=== PATIENT | male | born 1965 | race Caucasian/White ===

== ENCOUNTER 2021-07-23 08:29 | Outpatient (REF) | payer OTHER, SELFPAY ==
[2021-07-23 08:39] LABS: MANUAL DIFF FLAG NO
[2021-07-23 09:05] LABS: Basophils Percent Auto 0.4 % (0-2); Eosinophils Percent Auto 0.1 % (0-4); Hematocrit 48.5 % (42.0-52.0); Hemoglobin 16.7 g/dl (14.0-18.0); Imm Gran Abs Auto 0.02 X10*3/uL (0.00-0.03); Imm Gran Pct Auto 0.2 % (0.0-0.4); Lymphocytes Absolute Auto 2.3 X10*3/uL (1.2-4.9); Lymphocytes Percent Auto 25.1 % (20-40); Mean Corpuscular HGB Conc 34.4 g/dl (31.0-36.0); Mean Corpuscular Hemoglobin 30.3 pg (27.0-33.0); Mean Corpuscular Volume 87.9 fL (80.0-98.0); Mean Platelet Volume 12.6 fL (9.4-12.4); Monocytes Absolute Auto 1.3 X10*3/uL (0.1-1.2); Monocytes Percent Auto 14.7 % (2-11); Neutrophils Absolute Auto 5.4 x10*3/uL (2.0-8.3); Neutrophils Percent Auto 59.5 % (45-73); Platelet Count 189 X10*3/uL (160-400); Red Blood Count 5.52 X10*6/uL (4.60-5.80); Red Cell Distribution Width 12.2 % (11.0-16.0); White Blood Count 9.1 X10*3/uL (4.8-10.8)
[2021-07-23 09:38] LABS: Alanine Aminotransferase 23 U/L (0-40); Albumin Level 4.1 g/dL (3.5-5.0); Alkaline Phosphatase 91 U/L (39-117); Anion Gap 12 (12-20); Aspartate Amino Transferase 14 U/L (5-37); Bilirubin Total 0.3 mg/dL (0.0-1.0); Blood Urea Nitrogen 16 mg/dL (9-16); Calcium 9.7 mg/dL (8.4-10.2); Carbon Dioxide 29 mmol/L (22-29); Chloride 100 mmol/L (96-108); Cholesterol 307 mg/dL; Estimated Glomerular Filt Rate 49; Glucose Fasting 323 mg/dL (60-99); HDL Cholesterol 42 mg/dL; LDL Cholesterol Calculated 239 mg/dl; Potassium 4.7 mmol/L (3.3-5.1); Sodium 136 mmol/L (135-145); Total Protein 7.4 g/dL (6.5-8.0); Triglycerides 131 mg/dL
[2021-07-23 09:58] LABS: Prostate Specific Antigen Scr 2.74 ng/mL (<0.05-4.0)
== END 2021-07-23 08:30 | disposition home or self-care (01) ==
LOC: HO.LAB 08:29
PROVIDERS: PCP Internal Medicine; Visit Provider Nurse Practitioner Family
DX: Z01.818 Encounter for other preprocedural examination (principal); Z12.5 Encounter for screening for malignant neoplasm of prostate; E11.9 Type 2 diabetes mellitus without complications; E78.5 Hyperlipidemia, unspecified; I10 Essential (primary) hypertension; E78.00 Pure hypercholesterolemia, unspecified
CPT/HCPCS: 36415; 80053; 80061; 84153; 85025

== ENCOUNTER 2021-10-31 10:14 | Outpatient (REF) | payer OTHER, SELFPAY ==
[2021-10-31 11:53] LABS: Estimated Average Glucose 318 mg/dL; Hemoglobin A1c % 12.7 %
[2021-10-31 12:01] LABS: Appearance Urine CLEAR; Color Urine YELLOW; Glucose Urine UA >=1000 MG/DL (NEG); Leukocyte Esterase Urine NEG (NEG); Nitrite Urine NEG (NEG); PH 6.5 (5.0-8.0); Specific Gravity - Urine 1.015 (1.005-1.025); Urine Blood NEG (NEG); Urine Ketones NEG (NEG); Urine Protein NEG (NEG-TRACE)
[2021-10-31 12:14] LABS: Creatinine Urine 95.91 mg/dL; Microalbum/Creatinine Ratio Ur 88.6 ug/mg cr
[2021-10-31 12:16] LABS: RBC Urine 0 /HPF (0); WBC Urine 0 /HPF (0-4)
[2021-10-31 12:27] LABS: PSA,Total (Free>4and<10) 2.56 ng/mL (0.00-4.00)
[2021-10-31 12:45] LABS: Alanine Aminotransferase 27 U/L (0-40); Albumin Level 4.4 g/dL (3.5-5.0); Alkaline Phosphatase 107 U/L (39-117); Anion Gap 10 (12-20); Aspartate Amino Transferase 17 U/L (5-37); Bilirubin Total 0.8 mg/dL (0.0-1.0); Blood Urea Nitrogen 12 mg/dL (9-16); Calcium 9.7 mg/dL (8.4-10.2); Carbon Dioxide 28 mmol/L (22-29); Chloride 102 mmol/L (96-108); Cholesterol 323 mg/dL; Estimated Glomerular Filt Rate > 60; HDL Cholesterol 44 mg/dL; LDL Cholesterol Calculated 239 mg/dl; Sodium 135 mmol/L (135-145); Total Protein 7.7 g/dL (6.5-8.0); Triglycerides 204 mg/dL
[2021-10-31 13:44] LABS: Glucose Fasting 351 mg/dL (60-99)
== END 2021-10-31 10:15 | disposition home or self-care (01) ==
LOC: HO.LAB 10:14
PROVIDERS: Nurse Practitioner Family; PCP Internal Medicine; Visit Provider Internal Medicine
DX: E11.9 Type 2 diabetes mellitus without complications (principal); E78.5 Hyperlipidemia, unspecified; R94.4 Abnormal results of kidney function studies; I10 Essential (primary) hypertension; Z12.5 Encounter for screening for malignant neoplasm of prostate
CPT/HCPCS: 36415; 80053; 80061; 81001; 81003; 82043; 83036; 84153

== ENCOUNTER 2022-03-27 13:30 | Outpatient (REF) | payer OTHER, SELFPAY ==
--- NOTE | ~2022-03-27 | US_ITS ---
EXAMINATION: US RETROPERITONEAL LIMITED (RENAL ONLY) CLINICAL INFORMATION: CKD stage III. COMPARISON: None TECHNIQUE: Real-time imaging of the kidneys. FINDINGS: RIGHT KIDNEY: 11.4 x 5.5 x 4.6 cm (SAG x AP x TRV). The kidney is normal in size, contour, and echogenicity. Renal cortical thickness is normal. No calculi or focal parenchymal lesions. No hydronephrosis. LEFT KIDNEY: 11.9 x 5.6 x 5.0 cm (SAG x AP x TRV). The kidney is normal in size, contour, and echogenicity. Renal cortical thickness is normal. No calculi or focal parenchymal lesions. No hydronephrosis. US/US renal BI IMPRESSION: Normal renal ultrasound.
== END 2022-03-27 13:31 | disposition home or self-care (01) ==
LOC: HO.US 13:30
PROVIDERS: Visit Provider Internal Medicine Hypertension Specialist
DX: N18.2 Chronic kidney disease, stage 2 (mild) (principal)
CPT/HCPCS: 76775

== ENCOUNTER → 2022-05-29 08:33 | Outpatient (BNVA) | payer OTHER, SELFPAY | PROVIDERS: PCP Internal Medicine; Referring Provider Nurse Practitioner Family; Visit Provider Internal Medicine | DX: Z01.810 Encounter for preprocedural cardiovascular examination (principal); R07.2 Precordial pain; E11.9 Type 2 diabetes mellitus without complications; E78.2 Mixed hyperlipidemia | CPT/HCPCS: 93005 ==

== ENCOUNTER 2022-06-19 08:55 | Outpatient (REF) | payer OTHER, SELFPAY ==
[2022-06-19 11:04] LABS: Alanine Aminotransferase 18 U/L (0-40); Alkaline Phosphatase 89 U/L (39-117); Anion Gap 11 (12-20); Aspartate Amino Transferase 13 U/L (5-37); Bilirubin Total 0.4 mg/dL (0.0-1.0); Blood Urea Nitrogen 12 mg/dL (9-16); Calcium 9.4 mg/dL (8.4-10.2); Carbon Dioxide 29 mmol/L (22-29); Chloride 100 mmol/L (96-108); Cholesterol 176 mg/dL; Estimated Glomerular Filt Rate > 60; Glucose Fasting 328 mg/dL (60-99); HDL Cholesterol 42 mg/dL; LDL Cholesterol Calculated 109 mg/dl; Potassium 4.8 mmol/L (3.3-5.1); Sodium 135 mmol/L (135-145); Total Protein 6.7 g/dL (6.5-8.0); Triglycerides 129 mg/dL; Vitamin D 25-OH Total 36.4 ng/mL (>30)
[2022-06-19 11:08] LABS: Microalbum/Creatinine Ratio Ur 71.3 ug/mg cr
== END 2022-06-19 08:56 | disposition home or self-care (01) ==
LOC: HO.LAB 08:55
PROVIDERS: PCP Internal Medicine; Visit Provider Internal Medicine
DX: E55.9 Vitamin D deficiency, unspecified (principal); E11.9 Type 2 diabetes mellitus without complications; E78.5 Hyperlipidemia, unspecified
CPT/HCPCS: 36415; 80053; 80061; 82043; 82306

== ENCOUNTER → 2022-06-26 09:43 | Outpatient (REF) | payer OTHER, SELFPAY ==
--- NOTE | 2022-06-26 09:49 | CA_ITS ---
Transthoracic Echocardiogram Patient (Last, First, Middle): Dawood Ag, Gender: Male Date of : 1965 Age: 57 Procedure Date: 06/26/2022 Procedure Type: Transthoracic Echocardiogram Location: OP Height: 172.72 cm Weight: 75.3 kg BSA: 1.89 m2 Heart Rate: 69 bpm BP: 136 / 62 mmHg Manufacturing Engineer Automotive: SB Referring MD: Arden Smith MD Symptoms: I25.10 - Atherosclerotic heart disease of [place] coronary artery without... Study Quality: Adequate ECG Rhythm: Sinus Conclusions: - The left ventricular systolic function is normal. The calculated ejection fraction is 67% by biplane method. - The apical inferior segment is hypokinetic. - No obvious valvular pathology seen on this study. Findings Left Ventricle Normal left ventricular cavity size. There is normal left ventricular wall thickness. The left ventricular systolic function is normal. The calculated ejection fraction is 67% by biplane method. Diastolic function is normal for age. There is mild septal and mild basal asymmetric hypertrophy. Wall Motion Rest Echo Findings The apical inferior segment is hypokinetic. Right Ventricle Normal right ventricular cavity size. There is mildly decreased right ventricular systolic function. Atria Both atria are normal in size. Aortic Valve There is a normal trileaflet aortic valve. There is no aortic valve stenosis. There is no aortic valve regurgitation. Mitral Valve The mitral valve appears normal. There is no mitral valve regurgitation. There is no mitral valve stenosis. Pulmonic Valve The pulmonic valve is likely normal. Tricuspid Valve Normal tricuspid valve structure. There is trace tricuspid valve regurgitation. There is no evidence of pulmonary hypertension. Great Vessels The asc aorta is normal in size. Venous The inferior vena cava is normal in size and collapses greater than 50% with inspiration. Pericardium/Pleural There is no evidence of pericardial effusion. Prior Study Comparison No prior study available for comparison. Recommendations, Care & Conclusions No obvious valvular pathology seen on this study. Measurements 2D Linear Measurements IVSd: 0.69 0.6-0.9/0.6-1.0 cm LVIDd: 4.47 3.9-5.3/4.2-5.9 cm LVIDd Index: 2.37 2.4-3.2/2.2-3.1 cm/m2 LVIDs: 3.05 2.0-3.6 cm LVPWd: 0.80 0.7-1.1 cm LA Diam: 3.10 2.7-3.8/3.0-4.0 cm LAIDs Index: 1.64 1.5-2.3 cm/m2 LV Mass: 126.18 67-162/88-224 g LV Mass Index: 66.76 43-95/49-115 g/m2 LVOT Diam: 2.30 3.0+(-)1.3 cm 2D Systolic Function EF 4C: 65.50 >55% EF 2C: 68.90 >55% EF BiP: 67.20 >55% Mitral Valve MV Pk E: 0.79 MV PK A: 0.94 MV Decel Time: 185.00 E/A: 0.80 E'Lateral: 8.49 E'Medial: 5.77 E/E' Med: 13.70 E/E' Lat: 9.30 PHT: 54.00 MVA PHT: 4.07 Decel [place]: 4.27 Aortic Valve AoV Pk [place]ado: 1.14 AoV Pk Grad: 5.00 JANIS: 3.56 LVOT LVOT Pk [place]donado: 0.98 LVOT Mn [place]donado: 0.69 LVOT VTI: 0.23 LVOT Pk Grad: 4.00 LVOT Mn Grad: 2.00 LVOT Diam: 2.30 LVOT Area: 4.15 Diastolic Function MV Pk E: 0.79 MV Pk A: 0.94 E/A: 0.80 E'Medial: 5.77 E/E' Med: 13.70 E' Laterial: 8.49 E/E' Lat: 9.30 Right Ventricle TAPSE (mm): 13.90 TVS' Maldonado: 10.70 Tricuspid Valve RA Press: 3.00 Great Vessels Aorta Sinus of Valsalva: 3.20 2.0-3.5 cm Ao Asc: 3.30 2.1-3.4 cm Pulmonary Valve PV Pk Maldonado: 1.08 Peak PV Grad: 5.00 Updated in Other Vendor System with Status of Final Arden Smith MD electronically signed on 06/28/2022 10:46:14 AM with status of Final
== END ==
LOC: HO.CARD 09:43
PROVIDERS: PCP Internal Medicine; Visit Provider Internal Medicine
DX: R07.2 Precordial pain (principal); I25.10 Atherosclerotic heart disease of native coronary artery without angina pectoris
CPT/HCPCS: 93306

== ENCOUNTER → 2022-07-17 14:14 | Outpatient (BNVA) | payer OTHER, SELFPAY | PROVIDERS: PCP Internal Medicine; Visit Provider Internal Medicine Endocrinology, Diabetes & Metabolism | DX: E11.9 Type 2 diabetes mellitus without complications (principal) | CPT/HCPCS: 82947 ==

== ENCOUNTER → 2022-07-31 11:01 | Outpatient (REF) | payer OTHER, SELFPAY ==
--- NOTE | 2022-07-31 11:04 | CA_ITS ---
Acquisition Time: 2022-07-31 11:56:33 Total Exercise Time: 00:05:24 Test Indications: R07.2 Precordial pain Medications: See H Protocol: OVI Max HR: 157 BPM 96% of Pred: 162 BPM Max BP: 160/090 mmHG Max Work Load: 7.2 METS Exercise stress test with exercise 5 min 24 sec of Ovi protocol, 4.6 METS with runs of ventricular tachycardia and need to stop exercise, without symptoms, with normotensive response to exercise, without ischemic changes on EKG. Echo images obtained by tech at rest and immediately post peak exercise. Definity contrast used. Ventricular ectopy resolved in recovery. Pt recovered for 18 minutes and felt well. EKG tracings reviewed with Dr Philip. Will start on aspirin, Metoprolol. He is already on statin. Presumed need for cardiac cath reviewed with pt including risk. He is agreeable to proceed. Will get precath labs today. Instructed on light activity only. ED care if needed for symptoms. Referred By: Arden Smith Overread By: ZAINAB WHITE
[2022-07-31 12:52] LABS: MANUAL DIFF FLAG NO
[2022-07-31 13:42] LABS: Basophils Percent Auto 0.4 % (0-2); Eosinophils Absolute Auto 0.1 X10*3/uL (0.0-0.4); Eosinophils Percent Auto 0.8 % (0-4); Hematocrit 45.3 % (42.0-52.0); Hemoglobin 15.2 g/dl (14.0-18.0); Imm Gran Abs Auto 0.01 X10*3/uL (0.00-0.03); Imm Gran Pct Auto 0.1 % (0.0-0.4); Lymphocytes Absolute Auto 1.7 X10*3/uL (1.2-4.9); Lymphocytes Percent Auto 23.4 % (20-40); Mean Corpuscular HGB Conc 33.6 g/dl (31.0-36.0); Mean Corpuscular Hemoglobin 29.5 pg (27.0-33.0); Mean Corpuscular Volume 87.8 fL (80.0-98.0); Mean Platelet Volume 12.5 fL (9.4-12.4); Monocytes Absolute Auto 0.5 X10*3/uL (0.1-1.2); Monocytes Percent Auto 7.6 % (2-11); Neutrophils Absolute Auto 4.8 x10*3/uL (2.0-8.3); Neutrophils Percent Auto 67.7 % (45-73); Platelet Count 204 X10*3/uL (160-400); Red Blood Count 5.16 X10*6/uL (4.60-5.80); White Blood Count 7.1 X10*3/uL (4.8-10.8)
[2022-07-31 13:47] LABS: INTERNATIONAL NORM RATIO 1.1 (0.9-1.1); Prothrombin Time 12.4 SEC (10.0-13.1)
[2022-07-31 14:49] LABS: Anion Gap 13 (12-20); Blood Urea Nitrogen 15 mg/dL (9-16); Calcium 9.8 mg/dL (8.4-10.2); Carbon Dioxide 26 mmol/L (22-29); Chloride 104 mmol/L (96-108); Estimated Glomerular Filt Rate > 60; Glucose Random 183 mg/dL (60-115); Potassium 4.9 mmol/L (3.3-5.1); Sodium 138 mmol/L (135-145)
== END ==
LOC: HO.CARD 11:01
PROVIDERS: Nurse Practitioner Family; PCP Internal Medicine; Visit Provider Internal Medicine
DX: R07.2 Precordial pain (principal); R94.39 Abnormal result of other cardiovascular function study
CPT/HCPCS: 36415; 80048; 85025; 85610; 93350; Q9957

== ENCOUNTER 2022-09-04 10:51 | Outpatient (REF) | payer OTHER, SELFPAY ==
[2022-09-04 12:01] LABS: Basophils Absolute Auto 0.1 X10*3/uL (0.0-0.2); Basophils Percent Auto 0.8 % (0-2); Eosinophils Absolute Auto 0.1 X10*3/uL (0.0-0.4); Eosinophils Percent Auto 1.9 % (0-4); Hematocrit 44.7 % (42.0-52.0); Hemoglobin 14.9 g/dl (14.0-18.0); Imm Gran Abs Auto 0.01 X10*3/uL (0.00-0.03); Imm Gran Pct Auto 0.2 % (0.0-0.4); Lymphocytes Absolute Auto 1.9 X10*3/uL (1.2-4.9); Lymphocytes Percent Auto 32.8 % (20-40); MANUAL DIFF FLAG SCAN; Mean Corpuscular HGB Conc 33.3 g/dl (31.0-36.0); Mean Corpuscular Volume 87.1 fL (80.0-98.0); Mean Platelet Volume 12.9 fL (9.4-12.4); Monocytes Absolute Auto 0.5 X10*3/uL (0.1-1.2); Monocytes Percent Auto 7.8 % (2-11); Neutrophils Absolute Auto 3.4 x10*3/uL (2.0-8.3); Neutrophils Percent Auto 56.5 % (45-73); PLT CLUMP 1; Red Blood Count 5.13 X10*6/uL (4.60-5.80); Red Cell Distribution Width 12.9 % (11.0-16.0); SCAN SMEAR FLAG 1
[2022-09-04 12:02] LABS: INTERNATIONAL NORM RATIO 1.1 (0.9-1.1); Prothrombin Time 13.2 SEC (10.0-13.1); White Blood Count 5.9 X10*3/uL (4.8-10.8)
[2022-09-04 12:41] LABS: Platelet Count 190 X10*3/uL (160-400); SLIDE REVIEW VERIFIED
[2022-09-04 12:44] LABS: Anion Gap 14 (12-20); Blood Urea Nitrogen 23 mg/dL (9-16); Calcium 9.4 mg/dL (8.4-10.2); Carbon Dioxide 25 mmol/L (22-29); Chloride 107 mmol/L (96-108); Estimated Glomerular Filt Rate > 60; Glucose Random 185 mg/dL (60-115); Potassium 4.7 mmol/L (3.3-5.1); Sodium 141 mmol/L (135-145)
== END 2022-09-04 10:52 | disposition home or self-care (01) ==
LOC: HO.LAB 10:51
PROVIDERS: PCP Internal Medicine; Visit Provider Internal Medicine Cardiovascular Disease
DX: I47.20 Ventricular tachycardia, unspecified (principal); R94.39 Abnormal result of other cardiovascular function study
CPT/HCPCS: 36415; 80048; 85025; 85610

== ENCOUNTER → 2022-09-23 08:50 | Outpatient (BNVA) | payer OTHER, SELFPAY | PROVIDERS: PCP Internal Medicine; Referring Provider Internal Medicine; Visit Provider Internal Medicine | DX: Z13.89 Encounter for screening for other disorder (principal) ==

== ENCOUNTER → 2022-10-16 12:54 | Outpatient (BNVA) | payer OTHER, SELFPAY | PROVIDERS: PCP Internal Medicine; Visit Provider Internal Medicine Endocrinology, Diabetes & Metabolism | DX: E11.9 Type 2 diabetes mellitus without complications (principal) | CPT/HCPCS: 82947; 83036 ==

== ENCOUNTER → 2022-11-06 13:03 | Outpatient (BNVA) | payer OTHER, SELFPAY | PROVIDERS: PCP Internal Medicine; Visit Provider Dietitian, Registered | DX: E11.9 Type 2 diabetes mellitus without complications (principal); Z71.3 Dietary counseling and surveillance | CPT/HCPCS: 97802 ==

== ENCOUNTER 2022-11-11 09:47 | Outpatient (REF) | payer OTHER, SELFPAY ==
--- NOTE | ~2022-11-11 | US_ITS ---
EXAMINATION: US EXTRACRANIAL CAROTID DUPLEX, BILATERAL CLINICAL INFORMATION: Carotid bruit. COMPARISON: None available. TECHNIQUE: Real-time ultrasound and Doppler techniques (integrating B-mode 2-D vascular images, Doppler spectral analysis and color-flow Doppler imaging) were utilized to interrogate the extracranial carotid arteries, the vertebral arteries and proximal subclavian arteries bilaterally. The degree of stenosis is determined by criteria similar to NASCET. FINDINGS: Right Side: 1. There is mild atherosclerotic plaque seen in the bifurcation/proximal ICA region. 2. The common carotid artery PSV proximally is 99 cm/s and distally 72 cm/s. 3. The proximal internal carotid artery velocities are 87 cm/s systolic and 29 cm/s diastolic. 4. The proximal external carotid artery PSV is 97 cm/s. 5. The vertebral artery shows antegrade flow. 6. The subclavian artery waveforms are normal. Left Side: 1. There is mild atherosclerotic plaque seen in the bifurcation/proximal ICA region. 2. The common carotid artery PSV proximally is 89 cm/s and distally 81 cm/s. 3. The proximal internal carotid artery velocities are 72 cm/s systolic and 28 cm/s diastolic. 4. The proximal external carotid artery PSV is 102 cm/s. 5. The vertebral artery shows antegrade flow. 6. The subclavian artery waveforms are normal. US/US carotid duplex BI IMPRESSION: 1. RIGHT: Minimal, non-hemodynamically significant stenosis of the proximal right internal carotid artery corresponding to a 0-49% stenosis by velocity criteria. 2. LEFT: Minimal, non-hemodynamically significant stenosis of the proximal left internal carotid artery corresponding to a 0-49% stenosis by velocity criteria.
--- NOTE | ~2022-11-11 | US_ITS ---
EXAMINATION: US LOWER EXTREMITY VENOUS (REFLUX EXAM), BILATERAL CLINICAL INDICATION: Chronic venous insufficiency with lower extremity varicose vein, pain and swelling COMPARISON: None. TECHNIQUE: Color flow triplex imaging and compression Doppler was performed to evaluate both the deep and the superficial systems bilaterally. To evaluate the superficial system, the examination was performed in the upright position. Color-flow Doppler ultrasound and compression ultrasound were utilized. In addition, maneuvers were utilized to demonstrate reflux. FINDINGS: 1. DEEP VENOUS ULTRASOUND OF THE RIGHT LOWER EXTREMITY: Common Femoral Vein: Compressible, normal respiratory variation and augmented flow. Femoral Vein: Compressible, normal color flow and augmentation. Popliteal Vein: Compressible, normal augmentation. Deep Reflux: There is no evidence of reflux in the deep system in either the common femoral vein or the popliteal vein. There is no evidence of a Lovett's cyst. 2. SUPERFICIAL ULTRASOUND WITH DOPPLER OF RIGHT LOWER EXTREMITY: GREAT SAPHENOUS VEIN: Saphenofemoral Junction: 0.6 cm; Reflux: 0 ms Proximal Thigh: 0.3 cm; Reflux: 0 ms Mid Thigh: 0.2 cm; Reflux: 0 ms Above Knee: 0.3 cm; Reflux: 0 ms At Knee: 0.3 cm; Reflux: 0 ms Below Knee: 0.3 cm; Reflux: 0 ms Mid Calf: 0.2 cm; Reflux: 0 ms Ankle: 0.2 cm; Reflux: 2612 ms DUPLICATED MEDIAL GREAT SAPHENOUS VEIN: Diameter: None Imaged Reflux: NA DUPLICATED LATERAL GREAT SAPHENOUS VEIN: Diameter: None Imaged Reflux: NA SMALL SAPHENOUS VEIN: Proximal: 0.2 cm; Reflux: 0 ms Distal: 0.2 cm; Reflux: 0 ms VEIN OF GIACOMINI: None Imaged. PERFORATORS: Location: Proximal calf Size: 0.3 cm Reflux: 2392 ms VARICOSITIES: Location: Proximal calf off the great saphenous vein and proximal calf off the sterile proc tech vein Size: 0.3 cm Reflux: Ranging from 2360 ms to 2444 ms 3. DEEP VENOUS ULTRASOUND OF THE LEFT LOWER EXTREMITY: Common Femoral Vein: Compressible, normal respiratory variation and augmented flow. Femoral Vein: Compressible, normal color flow and augmentation. Popliteal Vein: Compressible, normal augmentation. Deep Reflux: There is no evidence of reflux in the deep system in either the common femoral vein or the popliteal vein. There is no evidence of a Lovett's cyst. 4. SUPERFICIAL ULTRASOUND WITH DOPPLER OF LEFT LOWER EXTREMITY: GREAT SAPHENOUS VEIN: Saphenofemoral Junction: 0.6 cm; Reflux: 0 ms Proximal Thigh: 0.2 cm; Reflux: 0 ms Mid Thigh: 0.2 cm; Reflux: 0 ms Above Knee: 0.2 cm; Reflux: 0 ms At Knee: 0.3 cm; Reflux: 0 ms Below Knee: 0.3 cm; Reflux: 0 ms Mid Calf: 0.2 cm; Reflux: 0 ms Ankle: 0.2 cm; Reflux: 0 ms DUPLICATED MEDIAL GREAT SAPHENOUS VEIN: Diameter: None Imaged Reflux: NA DUPLICATED LATERAL GREAT SAPHENOUS VEIN: Diameter: None Imaged Reflux: NA SMALL SAPHENOUS VEIN: Proximal: 0.4 cm; Reflux: 0 ms Distal: 0.1 cm; Reflux: 0 ms VEIN OF GIACOMINI: None Imaged. PERFORATORS: Location: None significant Size: NA Reflux: NA VARICOSITIES: Location: None Imaged Size: NA Reflux: NA US/US venous duplex LE BI IMPRESSION: Right: Dilated varicose veins in the proximal calf arising from the great saphenous vein and the sterile proc tech vein with reflux as described above. There is focal reflux in the great saphenous vein in the distal calf with otherwise normal flow seen more proximally. Left: No significant venous insufficiency or reflux in the left great saphenous vein or small saphenous vein
== END 2022-11-11 09:48 | disposition home or self-care (01) ==
LOC: HO.US 09:47
PROVIDERS: PCP Internal Medicine; Visit Provider Thoracic Surgery (Cardiothoracic Vascular Surgery)
DX: R09.89 Other specified symptoms and signs involving the circulatory and respiratory systems (principal); I87.2 Venous insufficiency (chronic) (peripheral)
CPT/HCPCS: 93880; 93970

== ENCOUNTER → 2023-01-02 14:21 | Outpatient (BNVA) | payer MEDICAID, SELFPAY | PROVIDERS: PCP Internal Medicine; Referring Provider Internal Medicine; Visit Provider Internal Medicine | DX: I25.10 Atherosclerotic heart disease of native coronary artery without angina pectoris (principal); Z95.1 Presence of aortocoronary bypass graft | CPT/HCPCS: 93005 ==

== ENCOUNTER → 2023-01-22 10:38 | Outpatient (REF) | payer OTHER, SELFPAY ==
--- NOTE | 2023-01-22 10:40 | CA_ITS ---
Transthoracic Echocardiogram Patient (Last, First, Middle): Dawood Ag, Gender: Male Date of : 1965 Age: 57 Procedure Date: 01/22/2023 Procedure Type: Transthoracic Echocardiogram Location: OP Height: 172.72 cm Weight: 69.4 kg BSA: 1.82 m2 Heart Rate: bpm BP: 118 / 60 mmHg Scouring Machine Operator: Referring MD: Arden Smith MD Varnisher Plasticoater: Tavon Philip MD Symptoms: I25.10 - Atherosclerotic heart disease of [place] coronary artery without... Study Quality: Good ECG Rhythm: Sinus Conclusions: - 1. Normal LV systolic function with moderate LVH with LVEF of 60 65% with grade 1 diastolic dysfunction 2. Normal cardiac valvular Doppler 3. Normal RV systolic pressure 4. No gross pericardial effusion Findings Left Ventricle Normal left ventricular size and systolic function. There is moderately increased left ventricular wall thickness. The visually estimated ejection fraction is between 60-65%. There is paradoxical septal motion consistent with post-operative status. Spectral Doppler is indicative of an impaired relaxation filling pattern. E/E prime ratio is <8, consistent with normal filling pressures. Evidence suggests grade I (mild) diastolic dysfunction. Wall Motion Rest Echo Findings The basal inferior segment is akinetic. All other scored wall segments showed normal motion. Right Ventricle Normal right ventricular cavity size. There is borderline right ventricular systolic function. Atria The left atrium is normal in size. Interatrial shunt cannot be excluded. The right atrium is normal in size. Aortic Valve Normal aortic valve structure and function. There is no aortic valve stenosis. There is no aortic valve regurgitation. Mitral Valve Likely normal mitral valve structure and function. There is trace mitral valve regurgitation. There is no mitral valve stenosis. Pulmonic Valve The pulmonic valve is likely normal. There is trace pulmonic valve regurgitation. Tricuspid Valve Likely normal tricuspid valve structure and function. There is trace tricuspid valve regurgitation. The right ventricular systolic pressure is normal. There is no evidence of pulmonary hypertension. Great Vessels All visible segments of the aorta are normal in size. The pulmonary artery was not well visualized. Venous The inferior vena cava is mildly dilated. Pericardium/Pleural There is no evidence of pericardial effusion. Measurements 2D Linear Measurements IVSd: 1.39 0.6-0.9/0.6-1.0 cm LVIDd: 3.29 3.9-5.3/4.2-5.9 cm LVIDd Index: 1.81 2.4-3.2/2.2-3.1 cm/m2 LVIDs: 2.29 2.0-3.6 cm LVPWd: 1.41 0.7-1.1 cm Ao Root: 3.00 2.1-3.5 cm LA Diam: 2.70 2.7-3.8/3.0-4.0 cm LAIDs Index: 1.48 1.5-2.3 cm/m2 LV Mass: 197.87 67-162/88-224 g LV Mass Index: 108.72 43-95/49-115 g/m2 LVOT Diam: 2.20 3.0+(-)1.3 cm Mitral Valve MV Pk E: 0.69 MV PK A: 0.75 MV Decel Time: 175.00 E/A: 0.90 E'Lateral: 11.30 E'Medial: 5.77 E/E' Med: 11.90 E/E' Lat: 6.10 PHT: 51.00 MVA PHT: 4.31 Decel [place]: 3.92 Aortic Valve AoV Pk Maldonado: 1.13 AoV Mn Maldonado: 0.78 AoV VTI: 0.26 AoV Pk Grad: 5.00 Aov Mn Grad: 3.00 JANIS Cont.VTI: 3.36 LVOT LVOT Pk Maldonado: 1.05 LVOT Mn Maldonado: 0.72 LVOT VTI: 0.23 LVOT Pk Grad: 4.00 LVOT Mn Grad: 2.00 LVOT Diam: 2.20 LVOT Area: 3.80 Diastolic Function MV Pk E: 0.69 MV Pk A: 0.75 E/A: 0.90 E'Medial: 5.77 E/E' Med: 11.90 E' Laterial: 11.30 E/E' Lat: 6.10 Right Ventricle TAPSE (mm): 17.00 TVS' Maldonado: 8.00 Tricuspid Valve TR Pk Maldonado: 2.08 TR Pk Grad: 17.00 RA Press: 3.00 RVSP: 20.00 Great Vessels Aorta Ao Root-2D: 3.00 2.0-3.7 cm Ao Asc: 3.20 2.1-3.4 cm Pulmonary Valve PV Pk Maldonado: 1.21 Peak PV Grad: 6.00 Updated in Other Vendor System with Status of Final Tavon Philip MD electronically signed on 01/23/2023 4:52:03 PM with status of Final
== END ==
LOC: HO.CARD 10:38
PROVIDERS: PCP Internal Medicine; Visit Provider Internal Medicine
DX: I25.10 Atherosclerotic heart disease of native coronary artery without angina pectoris (principal); Z95.1 Presence of aortocoronary bypass graft
CPT/HCPCS: 93306

== ENCOUNTER → 2023-01-22 10:40 | Outpatient (BNV) | payer OTHER, SELFPAY | PROVIDERS: PCP Internal Medicine; Visit Provider Internal Medicine Cardiovascular Disease | DX: I25.10 Atherosclerotic heart disease of native coronary artery without angina pectoris (principal) | CPT/HCPCS: 93306 ==

== ENCOUNTER 2023-03-06 07:57 | Outpatient (AMB) | payer OTHER, SELFPAY ==
[2023-03-06 08:00] VITALS: BP 144/80; BMI 23.7
--- NOTE | 2023-03-06 08:00 | MHC.PC.OV ---
Vital Signs 03/06/23 08:00 03/06/23 09:12 Height 5 ft 8 in Weight 156 lb BMI 23.7 BP 144/80 H 138/80 Blood Pressure Location Lt brachial Lt brachial Position Sitting Sitting Intake Visit Reasons: Cardiology Referral-Heart Surgery Intake Note: Patient here for a follow up Online Merchant Required: No Accompanied by: Self / Same As Patient Allergies nickel [NICKEL] Adverse Reaction (Intermediate, Verified 03/06/23 08:15) RASH Medication List - Last Reconciled 03/06/23 by Gabriela Ball MD ascorbate calcium (vitamin C) 500 mg PO DAILY aspirin 81 mg PO DAILY atorvastatin 80 mg PO BEDTIME blood sugar diagnostic (FreeStyle Lite Strips) Use 1 test strip twice a day blood-glucose meter (FreeStyle Lite Meter kit) As directed lancets (FreeStyle Lancets) Use 1 lancet twice a day metformin 500 mg PO BID 90 days pioglitazone 45 mg PO DAILY Tobacco use date assessed: 11/06/22 Dental Screening Dental Screen Date: 03/06/23 Did you have a dental visit in the last 12 months?: No Did you have a dental problem in the last 6 months where you did not have access to dental care?: No Was dental information given to patient?: Patient has dentist HPI HPI Comments History of Present Illness Details This is a 57-year-old male with diabetes mellitus type 2, hyperlipidemia, status post coronary artery bypass graft in November 2022 and insomnia that comes today for follow-up on his conditions. A1c within goal. Lipid panel will be order. His LDL should be less than 70. Has cardiology follow-up next month for his coronary artery disease. Recovering well. No chest pain or shortness of breath. Complains of some mild cognitive impairment. Insomnia has been stable with sleep hygiene. [facility] Medical History Atherosclerotic cardiovascular disease Colon polyps Diabetes HTN (hypertension) Hyperlipidemia Microalbuminuria Minimal depression Mixed hyperlipidemia Physical exam Screen for colon cancer Surgical History H/O colonoscopy H/O shoulder surgery History of cataract surgery Hx of CABG Hx of eye surgery Family History Father Diabetes HTN (hypertension) Hyperlipidemia Mother Diabetes HTN (hypertension) Hyperlipidemia Social History Household Members: Spouse Housing: Apartment Alcohol intake: never Patient Tobacco Use Status: Former Tobacco user e-Cigarette/Vaping Use: Never Used Second Hand Smoke Exposure: No service: No Current occupational status: unemployed Cognitive needs: No Hearing needs: No Vision needs: Yes Questionnaire Thrive Questionnaire Date Thrive assessed: 11/06/22 INESSA-7 AMB Questionnaire INESSA-7 Date INESSA - 7 assessed: 11/06/22 Source: Developed by Drs. Julio Fernández, Katherine Celis, Adrian Mcneill and colleagues, with an educational augustine from [employer]. Review of Systems Const All systems reviewed & are unremarkable except as noted in HPI and below Eyes Reports no additional complaints, Denies change in vision and Denies other visual disturbances Card Denies chest pain at rest, Denies chest pain with activity, Denies edema, Denies irregular heart rhythm, Denies claudication, Denies dyspnea, Denies dyspnea on exertion, Denies orthopnea, Denies paroxysmal nocturnal dyspnea and Denies slow heart rate Resp Denies cough, Denies dyspnea and Denies dyspnea on exertion GI Denies abdominal pain, Denies change in bowel habits, Denies excessive flatus, Denies nausea and Denies vomiting Denies urinary hesitancy, Denies urinary incontinence and Denies urinary urgency Musc Denies abnormal gait, Denies atrophy, Denies deformity and Denies limited range of motion Skin/Breast Denies bleeding lesions, Denies changing lesions and Denies rash Neuro Denies abnormal gait and Denies lack of coordination Physical exam (Primary Care) Vital Signs: Last Vital Signs BP 144/80 H 03/06/23 08:00 BMI result Body Mass Index 23.7 Tobacco/Smoking Status: Tobacco use Status Tobacco use date assessed 11/06/22 03/06/23 08:05 Patient Tobacco Use Status Former Tobacco user 03/06/23 08:05 Tobacco use type 11/06/22 09:21 e-Cigarette/Vaping Use Never Used 03/06/23 08:05 Thrive Assessment: Date of Thrive Assessment Date Thrive assessed 11/06/22 03/06/23 08:05 Eyes General: appearance normal, both eyes and all related structures Eyelids: Yes eyelids normal Conjunctivae: conjunctivae normal Neck Neck: Yes normal visual inspection and Yes supple Resp Effort & Inspection: normal respiratory effort Auscultation: clear to auscultation bilaterally Cardio Jugular venous distension: no JVD Rate: regular rate Rhythm: regular rhythm Heart sounds: S1 normal heart sound present and S2 normal heart sound present Extrem General: Yes full ROM Results AMB Hemoglobin A1c AMB Hemoglobin A1c 6.6 % Last Edit by RUBY Saldivar on 03/06/23 08:19 Results Reviewed Results Reviewed: Laboratory Last Values Hgb A1c (Clinic) 6.6 % (4.0-6.0) H 03/06/23 08:06 Assessment and Plan Assessment & Plan (1) Diabetes: Code(s): E11.9 - Type 2 diabetes mellitus without complications Plan: Continue metformin and Actos. A1c goal is equal or less than 7%. (2) Hyperlipidemia: Code(s): E78.5 - Hyperlipidemia, unspecified Plan: Continue statins. LDL goal should be less than 70. (3) Status post aorto-coronary artery bypass graft: Code(s): Z95.1 - Presence of aortocoronary bypass graft Plan: Continue aspirin for secondary prophylaxis. Follow-up with Cardiology. (4) Insomnia: Code(s): G47.00 - Insomnia, unspecified Plan: Continue sleep hygiene practice. Orders: Orders Vitamin B12 and Folate 4 Months E53.8 - Deficiency of other specified B group vitamins Comprehensive [place]. Panel Fast 4 Months E11.9 - Type 2 diabetes mellitus without complications IRON PROFILE 4 Months D64.9 - Anemia, unspecified Lipid Panel 4 Months E78.5 - Hyperlipidemia, unspecified Microalbumin, Random (w Creat) 4 Months E11.9 - Type 2 diabetes mellitus without complications Complete Blood Count Auto Diff 4 Months D64.9 - Anemia, unspecified AMB Hemoglobin A1c Today E11.9 - Type 2 diabetes mellitus without complications Coding Level of Care Code Est Pt Level 4 (41154) Diagnoses Diabetes E11.9 Hyperlipidemia E78.5 Status post aorto-coronary artery bypass graft Z95.1 Insomnia G47.00 Time Spent (min) 22
[2023-03-06 09:12] VITALS: BP 138/80
== END 2023-03-06 08:25 | disposition home or self-care (01) ==
PROVIDERS: PCP Internal Medicine; Visit Provider Internal Medicine
DX: E11.9 Type 2 diabetes mellitus without complications (principal); E78.5 Hyperlipidemia, unspecified; Z95.1 Presence of aortocoronary bypass graft; G47.00 Insomnia, unspecified
CPT/HCPCS: 83036; 99214

== ENCOUNTER 2023-04-02 13:30 | Outpatient (AMB) | payer OTHER, SELFPAY ==
[2023-04-02 13:32] VITALS: BP 112/62; PULSE 85; BMI 23.9
--- NOTE | 2023-04-02 13:32 | MHC.OFFVIS ---
Intake Vital Signs 04/02/23 13:32 Height 5 ft 8 in Weight 156 lb 15.506 oz BMI 23.9 BP 112/62 Blood Pressure Location Lt brachial Position Sitting Pulse 85 Intake Visit Reasons: 3 month follow up Intake Note: 3 month follow up Professor Of Languages Required: No Accompanied by: Self / Same As Patient Allergies nickel [NICKEL] Adverse Reaction (Intermediate, Verified 04/02/23 13:34) RASH Medication List - Last Reconciled 04/02/23 by Arden Smith MD ascorbate calcium (vitamin C) 500 mg PO DAILY aspirin 81 mg PO DAILY atorvastatin 80 mg PO BEDTIME blood sugar diagnostic (FreeStyle Lite Strips) Use 1 test strip twice a day blood-glucose meter (FreeStyle Lite Meter kit) As directed lancets (FreeStyle Lancets) Use 1 lancet twice a day metformin 500 mg PO BID 90 days pioglitazone 45 mg PO DAILY HPI HPI Comments History of Present Illness Details Dawood returns for follow-up regarding coronary disease. He was initially seen for chest pain. Multiple cardiovascular risk factors. He was getting exertional chest pain leading to a stress test, positive for ventricular tachycardia. Then cardiac catheterization showed multivessel CAD. Then underwent coronary artery bypass surgery. Overall, doing fine. No new complaints. Meds have been changed but he is not sure why. He is no longer on the Plavix. Also not on any beta-blockers. He can't say who stopped these. [facility] Medical History Atherosclerotic cardiovascular disease Colon polyps Diabetes HTN (hypertension) Hyperlipidemia Microalbuminuria Minimal depression Mixed hyperlipidemia Physical exam Screen for colon cancer Surgical History Hx of CABG Hx of eye surgery H/O colonoscopy History of cataract surgery H/O shoulder surgery Family History Father Diabetes HTN (hypertension) Hyperlipidemia Mother Diabetes HTN (hypertension) Hyperlipidemia Social History Household Members: Spouse Housing: Apartment Alcohol intake: never Patient Tobacco Use Status: Former Tobacco user e-Cigarette/Vaping Use: Never Used Second Hand Smoke Exposure: No service: No Current occupational status: unemployed Cognitive needs: No Hearing needs: No Vision needs: Yes Review of Systems Const Denies weakness ENT Denies dizziness Card Denies chest pain, Denies chest pain with activity, Denies syncope, Denies rapid heart rate, Denies pedal edema, Denies edema, Denies leg edema, Denies lightheadedness, Denies palpitations, Denies dyspnea, Denies dyspnea on exertion and Denies orthopnea Resp Denies cough, Denies dyspnea and Denies dyspnea on exertion GI Denies hematochezia and Denies change in stool character Musc Denies abnormal gait, Denies muscle cramps, Denies muscle weakness, Denies numbness, Denies radiating pain into limb and Denies tingling Neuro Denies abnormal gait, Denies dizziness, Denies syncope, Denies numbness, Denies tingling and Denies weakness Endo Denies palpitations Physical Exam Vital Signs: Last Vital Signs Pulse 85 04/02/23 13:32 BP 112/62 04/02/23 13:32 BMI result Body Mass Index 23.9 Const General: comfortable and no acute distress Orientation/consciousness: patient oriented x3 HEENT Other: Unremarkable Head: Yes normal to inspection Neck Neck: Yes normal visual inspection Chest Chest palpation & inspection: normal inspection of the chest Resp Auscultation: clear to auscultation bilaterally Cardio Palpation: normal PMI Heart sounds: S1 normal heart sound present, S2 normal heart sound present, no gallops, no murmurs and no rubs GI Palpation (GI): Soft to palpation Back/Spine/Pelvis Other: unremarkable Skin General skin exam: no rashes or lesions noted Neuro General: patient oriented x3 Extrem General: Yes normal to inspection Psych Mental Status: mental status grossly normal Assessment & Plan Assessment & Plan (1) Atherosclerotic cardiovascular disease: Code(s): I25.10 - Atherosclerotic heart disease of [place] coronary artery without angina pectoris (2) Status post aorto-coronary artery bypass graft: Code(s): Z95.1 - Presence of aortocoronary bypass graft (3) Diabetes: Code(s): E11.9 - Type 2 diabetes mellitus without complications Plan [facility] records reviewed. Post bypass surgery he again had chest pain with ST elevation in anteroseptal leads. This led to another cardiac catheterization but grafts were patent. There was multivessel disease in his [place] coronaries. Since then, recovered quite well. With regard to medications, lot of changes and not clear why. Aspirin should be lifelong. With regard to Plavix, he was on last time but not anymore. Advised that he goes back on at least for 3 more months and then we can stop it. His surgery is not too long ago. With regard to beta-blockers, he was on Coreg in the past but that has been stopped and unclear reason. We will see how he does and then decide if he needs to go back on it or not. With regard to statins continue the same. There is already order for lipids and he has to do that. We discussed about the requirement for labs. Continue cardiac rehabilitation he states he is going to [facility] for that. With regard to diabetes, most recent hemoglobin A1c is 6.6%. On metformin, pioglitazone. Medications: New clopidogrel (Plavix) 75 mg PO DAILY 90 tabs 0RF Coding Level of Care Code Est Pt Level 4 (57883) Diagnoses Atherosclerotic cardiovascular disease I25.10 Status post aorto-coronary artery bypass graft Z95.1 Diabetes E11.9
== END 2023-04-02 13:58 | disposition home or self-care (01) ==
PROVIDERS: PCP Internal Medicine; Visit Provider Internal Medicine
DX: I25.10 Atherosclerotic heart disease of native coronary artery without angina pectoris (principal); Z95.1 Presence of aortocoronary bypass graft; E11.9 Type 2 diabetes mellitus without complications
CPT/HCPCS: 99214

== ENCOUNTER → 2023-04-02 13:30 | Outpatient (BNVA) | payer OTHER, SELFPAY | PROVIDERS: PCP Internal Medicine; Visit Provider Internal Medicine | DX: I25.10 Atherosclerotic heart disease of native coronary artery without angina pectoris (principal); E11.9 Type 2 diabetes mellitus without complications; Z95.1 Presence of aortocoronary bypass graft | CPT/HCPCS: 99212 ==

== ENCOUNTER 2023-05-13 08:44 | Outpatient (REF) | payer OTHER, SELFPAY ==
[2023-05-13 09:57] LABS: Estimated Average Glucose 166 mg/dL; Hemoglobin A1c % 7.4 % (<6.0)
[2023-05-13 10:10] LABS: Alanine Aminotransferase 19 U/L (0-40); Albumin Level 4.3 g/dL (3.5-5.0); Alkaline Phosphatase 75 U/L (39-117); Anion Gap 15 (12-20); Aspartate Amino Transferase 14 U/L (5-37); Bilirubin Total 0.5 mg/dL (0.0-1.0); Blood Urea Nitrogen 16 mg/dL (9-16); Calcium 9.7 mg/dL (8.4-10.2); Carbon Dioxide 26 mmol/L (22-29); Chloride 106 mmol/L (96-108); Cholesterol 143 mg/dL (<200); Estimated Glomerular Filt Rate > 60; Glucose Fasting 171 mg/dL (60-99); HDL Cholesterol 50 mg/dL (>40); LDL Cholesterol Calculated 79 mg/dL (<100); Potassium 4.8 mmol/L (3.3-5.1); Sodium 142 mmol/L (135-145); Total Protein 7.3 g/dL (6.5-8.0); Triglycerides 73 mg/dL (<150)
[2023-05-13 10:25] LABS: Vitamin D 25-OH Total 43.6 ng/mL (>30)
[2023-05-13 10:42] LABS: Folate 13.5 ng/mL (> or = 4.0); Vitamin B12 653 pg/mL (200-900)
[2023-05-13 11:26] LABS: Creatinine Urine 92.68 mg/dL; Microalbum/Creatinine Ratio Ur 86.3 ug/mg cr (<30)
== END 2023-05-13 08:45 | disposition home or self-care (01) ==
LOC: HO.LAB 08:44
PROVIDERS: PCP Internal Medicine; Visit Provider Internal Medicine
DX: E11.40 Type 2 diabetes mellitus with diabetic neuropathy, unspecified (principal); E78.5 Hyperlipidemia, unspecified; E11.9 Type 2 diabetes mellitus without complications; E53.8 Deficiency of other specified B group vitamins; E55.9 Vitamin D deficiency, unspecified
CPT/HCPCS: 36415; 80053; 80061; 82043; 82306; 82570; 82607; 82746; 83036

== ENCOUNTER 2023-07-03 08:33 | Outpatient (AMB) | payer OTHER, SELFPAY ==
[2023-07-03 08:38] VITALS: BP 130/72; PULSE 85; BMI 25.1
--- NOTE | 2023-07-03 08:38 | A.OFFVIS_ITS ---
Intake Vital Signs 07/03/23 08:38 Height 5 ft 8 in Weight 165 lb 5.547 oz BMI 25.1 BP 130/72 Blood Pressure Location Lt brachial Position Sitting Pulse 85 Pulse Source Monitor Intake Visit Reasons: FU/Community Navigation Tractor Sweeper Operator Required: Yes Tractor Sweeper Operator Language: Hhas Name: pipe [id number] [id number] Insulating Machine Operator: Insulating Machine Operator Present Allergies nickel [NICKEL] Adverse Reaction (Intermediate, Verified 07/03/23 08:42) RASH Medication List - Last Reconciled 07/03/23 by Lashawn Hester, FARHAD-C ascorbate calcium (vitamin C) 500 mg PO DAILY aspirin 81 mg PO DAILY atorvastatin 40 mg PO BEDTIME 90 days blood sugar diagnostic (FreeStyle Lite Strips) Use 1 test strip twice a day blood-glucose meter (FreeStyle Lite Meter kit) As directed clopidogrel (Plavix) 75 mg PO DAILY lancets (FreeStyle Lancets) Use 1 lancet twice a day metformin 500 mg PO BID 90 days HPI FU/Community Navigation HPI Details Dawood is a 58-year-old male with past medical history of hypertension, hyperlipidemia, diabetes, CAD, coronary artery bypass grafting 11/2022 who presents for follow-up Today he reports that he does get some discomfort in his anterior chest if he takes a deep breath at times or in certain body positions. He has no chest discomfort brought on by walking or stair climbing. He admits to being mostly sedentary. He stopped Cardiac rehab about 2 months ago. No shortness of breath, presyncope, syncope, PND, orthopnea or edema. Taking all meds as directed. is present. 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 [facility] Medical History Atherosclerotic cardiovascular disease Mixed hyperlipidemia Minimal depression Screen for colon cancer Colon polyps Microalbuminuria Physical exam Hyperlipidemia HTN (hypertension) Diabetes Surgical History Hx of CABG Hx of eye surgery H/O colonoscopy History of cataract surgery H/O shoulder surgery Family History Father Diabetes HTN (hypertension) Hyperlipidemia Mother Diabetes HTN (hypertension) Hyperlipidemia Social History Household Members: Spouse Housing: Apartment Alcohol intake: never Patient Tobacco Use Status: Former Tobacco user e-Cigarette/Vaping Use: Never Used Second Hand Smoke Exposure: No service: No Current occupational status: unemployed Cognitive needs: No Hearing needs: No Vision needs: Yes Review of Systems ENT Denies dizziness Card Reports chest pain (chest wall ), Denies chest pain at rest, Denies chest pain with activity, Denies rapid heart rate, Denies pedal edema, Denies edema, Denies leg edema, Denies lightheadedness, Denies palpitations, Denies dyspnea, Denies dyspnea on exertion and Denies orthopnea Resp Denies cough, Denies dyspnea and Denies dyspnea on exertion GI Denies hematochezia and Denies change in stool character Musc Denies abnormal gait, Denies limited range of motion, Denies muscle cramps, Denies muscle weakness, Denies numbness, Denies radiating pain into limb, Denies stiffness and Denies tingling Neuro Denies abnormal gait, Denies dizziness, Denies numbness and Denies tingling Endo Denies palpitations Physical Exam Vital Signs: Last Vital Signs Pulse 85 07/03/23 08:38 BP 130/72 07/03/23 08:38 BMI result Body Mass Index 25.1 Const General: cooperative, comfortable and no acute distress Orientation/consciousness: patient oriented x3 Neck Neck: Yes normal visual inspection Chest Other: sternal scar fully intact with no signs of inflammation or swelling Resp Effort & Inspection: normal respiratory effort Auscultation: clear to auscultation bilaterally, no crackles, no rales, no rhonchi and no wheezes Cardio Jugular venous distension: no JVD Rate: regular rate Rhythm: regular rhythm Heart sounds: S1 normal heart sound present, S2 normal heart sound present, no murmurs and no rubs Neuro General: patient oriented x3 Extrem General: Yes normal to inspection, No no pedal edema and No calf tenderness Psych Appearance: grossly normal Mental Status: mental status grossly normal Speech and movement: Normal speech and movement present Office Procedures EKG Details: Today read by me, normal sinus rhythm, can not exclude anterior infarct, nonspecific T-wave abnormalities. Improved appearance from prior EKG, rate 85, QTC 383, [id number], Complete Assessment & Plan Assessment & Plan (1) Atherosclerotic cardiovascular disease: Code(s): I25.10 - Atherosclerotic heart disease of [place] coronary artery without angina pectoris Plan: History of chest discomfort with cardiac catheterization showing multi-vessel CAD. He underwent a 4 vessel Coronary artery bypass grafting on 11/28/2022. Echocardiogram done 01/22/2023 showed EF 60-65%, grade 1 diastolic dysfunction, normal RV. On last visit he had been off his cardiac meds for unclear reason. He was restarted on Plavix, carvedilol held at that time. Today he reports he has been doing well for the last few months. He stopped attending cardiac rehab about 2 months ago. He is not doing any routine physical activity. He does have some discomfort that sounds like chest wall in nature. EKG done today showing sinus rhythm with nonspecific T-wave abnormalities, rate 85. Overall EKG appearance looks improved from last EKG 01/02/2023. Blood pressure is mildly elevated on my exam, blood pressure 148/70. Blood pressure recently at home done by nurse navigator was elevated in the 150s systolic. Will have him restart on carvedilol 3.125 mg b.i.d.. Labs done 05/13/2023 showed LDL 79. Will increase atorvastatin up to 80 mg daily. Hemoglobin A1c goal less than 7. Continue aspirin indefinitely. Continue Plavix for up to 1 year post Coronary artery bypass grafting. Continue atorvastatin. Instructed on increasing physical activity, start routine walking. Signs and symptoms of angina reviewed. Cardiology follow-up 3-4 months, sooner if needed. (2) Hx of CABG: Comment: 11/28/2022 hassan to LAD, GSV to PDA, ramus, left radial to OM Code(s): Z95.1 - Presence of aortocoronary bypass graft (3) HTN (hypertension): Code(s): I10 - Essential (primary) hypertension Qualifiers: Hypertension type: primary hypertension Qualified Code(s): I10 - Essential (primary) hypertension Plan: As above (4) Hyperlipidemia: Code(s): E78.5 - Hyperlipidemia, unspecified Qualifiers: Hyperlipidemia type: other hyperlipidemia Qualified Code(s): E78.49 - Other hyperlipidemia Plan: As above. Plan for fasting lipid at next visit Plan Time spent on chart review, documentation, interview and assessment Medications: New carvedilol must administer with a meal/food 3.125 mg PO BID 60 tabs 5RF atorvastatin 80 mg PO BEDTIME 90 tabs 1RF Discontinued atorvastatin Discontinued Reason: Doctor's Order 40 mg PO BEDTIME 90 days 90 tabs 1RF E78.2 - Mixed hyperlipidemia Coding Level of Care Code Est Pt Level 4 (83020) Diagnoses Atherosclerotic cardiovascular disease I25.10 Hx of CABG Z95.1 Primary hypertension I10 Hypertension type: primary hypertension Other hyperlipidemia E78.49 Hyperlipidemia type: other hyperlipidemia CPT Codes EKG - CPT: 44276-[id number], Complete ([id number]) Time Spent (min) 28
== END 2023-07-03 09:10 | disposition home or self-care (01) ==
PROVIDERS: PCP Internal Medicine; Visit Provider Nurse Practitioner Family
DX: I25.10 Atherosclerotic heart disease of native coronary artery without angina pectoris (principal); Z95.1 Presence of aortocoronary bypass graft; I10 Essential (primary) hypertension; E78.49 Other hyperlipidemia
CPT/HCPCS: 93010; 99214

== ENCOUNTER → 2023-07-03 08:33 | Outpatient (BNVA) | payer OTHER, SELFPAY | PROVIDERS: PCP Internal Medicine; Visit Provider Nurse Practitioner Family | DX: I25.10 Atherosclerotic heart disease of native coronary artery without angina pectoris (principal); I10 Essential (primary) hypertension; E78.49 Other hyperlipidemia; Z95.1 Presence of aortocoronary bypass graft | CPT/HCPCS: 93005; 99212 ==

== ENCOUNTER 2023-07-16 10:54 | Outpatient (AMB) | payer OTHER, SELFPAY ==
--- NOTE | 2023-07-16 11:13 | MHC.PC.OV ---
Vital Signs 07/16/23 11:15 Height 5 ft 8 in Weight 165 lb BMI 25.1 BP 138/80 Blood Pressure Location Lt brachial Position Sitting Intake Visit Reasons: dm Intake Note: Patient here for a follow up DM Gear Tooth Lapping Machine Operator Required: No Accompanied by: Self / Same As Patient Allergies nickel [NICKEL] Adverse Reaction (Intermediate, Verified 07/16/23 11:25) RASH Medication List - Last Reconciled 07/16/23 by Gabriela Ball MD ascorbate calcium (vitamin C) 500 mg PO DAILY aspirin 81 mg PO DAILY atorvastatin 80 mg PO BEDTIME blood sugar diagnostic (FreeStyle Lite Strips) Use 1 test strip twice a day blood-glucose meter (FreeStyle Lite Meter kit) As directed carvedilol 3.125 mg PO BID lancets (FreeStyle Lancets) Use 1 lancet twice a day metformin 500 mg PO BID 90 days Tobacco use date assessed: 07/16/23 Dental Screening Dental Screen Date: 07/16/23 Did you have a dental visit in the last 12 months?: No Did you have a dental problem in the last 6 months where you did not have access to dental care?: No Was dental information given to patient?: Patient has dentist HPI HPI Comments History of Present Illness Details This is a 58-year-old male with diabetes mellitus type 2, hypertension, hyperlipidemia and atherosclerotic cardiovascular disease that comes today for follow-up on his conditions. Last A1c was close to goal. Blood pressure stable. Lipid panel will be order and his LDL goal should be less than 70. On aspirin for secondary prophylaxis for his atherosclerotic cardiovascular disease. No chest pain or shortness of breath. [facility] Medical History Atherosclerotic cardiovascular disease Mixed hyperlipidemia Minimal depression Screen for colon cancer Colon polyps Microalbuminuria Physical exam Hyperlipidemia HTN (hypertension) Diabetes Surgical History Hx of CABG Hx of eye surgery H/O colonoscopy History of cataract surgery H/O shoulder surgery Family History Father Diabetes HTN (hypertension) Hyperlipidemia Mother Diabetes HTN (hypertension) Hyperlipidemia Social History Household Members: Spouse Housing: Apartment Alcohol intake: never Patient Tobacco Use Status: Former Tobacco user e-Cigarette/Vaping Use: Never Used Second Hand Smoke Exposure: No service: No Current occupational status: unemployed Cognitive needs: No Hearing needs: No Vision needs: Yes Questionnaire PHQ-9 Over the last 2 weeks, how often have you been bothered by any of the following problems? 1. Little interest or pleasure in doing things: not at all 2. Feeling down, depressed, or hopeless: several days 3. Trouble falling or staying asleep, or sleeping too much: several days 4. Feeling tired or having little energy: several days 5. Poor appetite or overeating: not at all 6. Feeling bad about yourself - or that you are a failure or have let yourself or your family down: not at all 7. Trouble concentrating on things, such as reading the newspaper or watching television: not at all 8. Moving or speaking so slowly that other people could have noticed. Or the opposite - being so fidgety or restless that you have been moving around a lot more than usual: not at all 9. Thoughts that you would be better off or of hurting yourself in some way: not at all Total score: 3 Depression Screening Interpretation: Negative Depression Screening Done: Yes 15171 - PHQ-9 Billing: Yes Source: Developed by Drs. Julio Fernández, Katherine Celis, Adrian Mcneill and colleagues, with an educational augustine from [employer]. Thrive Questionnaire Date Thrive assessed: 07/16/23 I am a: Patient What is your living situation today?: I have a steady place to live Within the past 12 months, did the food you bought not last and you didn't have the money to get more?: Never true Within the past 12 months, did you worry whether your food would run out before you got money to buy more?: Never true Do you have trouble paying for medicines?: No Do you have trouble getting transportation to medical appointments?: No Do you have trouble paying your heating and electricity bill?: No Do you have trouble taking care of your child, family member or friend?: No Do you have trouble with day-to-day activities such as bathing, preparing meals, shopping, managing finances, etc.?: No Are you currently unemployed and looking for a job?: No Are you interested in more education?: No Please select the resources that you would like help with: None Currently or been in a relationship where the following occur: no concerns reported AUDIT C Alcohol Use Questionnaire (AUDIT-C) 1. How often do you have a drink containing alcohol?: Never Total Score: 0 INESSA-7 AMB Questionnaire INESSA-7 Date INESSA - 7 assessed: 07/16/23 Feeling nervous, anxious, or on edge: 1 = Several days Not being able to stop or control worryin = Not at all Worrying too much about different things: 1 = Several days Trouble relaxin = Not at all Being so restless that it is hard to sit still: 0 = Not at all Becoming easily annoyed or irritable: 1 = Several days Feeling afraid as if something awful might happen: 0 = Not at all Total INESSA-7 score (0-4 normal; 5-9 mild; 10-14 moderate; 15-21 severe): 3 Source: Developed by Drs. Julio Fernández, Katherine Celis, Adrian Mcneill and colleagues, with an educational augustine from [employer]. INESSA-7 Assessment Billing INESSA-7 Assessment Tool: INESSA-7 Assessment 23147 Review of Systems Const All systems reviewed & are unremarkable except as noted in HPI and below Eyes Reports no additional complaints, Denies change in vision and Denies other visual disturbances Card Denies chest pain at rest, Denies chest pain with activity, Denies edema, Denies irregular heart rhythm, Denies claudication, Denies dyspnea, Denies dyspnea on exertion, Denies orthopnea, Denies paroxysmal nocturnal dyspnea and Denies slow heart rate Resp Denies cough, Denies dyspnea and Denies dyspnea on exertion GI Denies abdominal pain, Denies change in bowel habits, Denies excessive flatus, Denies nausea and Denies vomiting Denies urinary hesitancy, Denies urinary incontinence and Denies urinary urgency Musc Denies abnormal gait, Denies atrophy, Denies deformity and Denies limited range of motion Skin/Breast Denies bleeding lesions, Denies changing lesions and Denies rash Neuro Denies abnormal gait and Denies lack of coordination Physical exam (Primary Care) Vital Signs: Last Vital Signs BP 138/80 07/16/23 11:15 BMI result Body Mass Index 25.1 Tobacco/Smoking Status: Tobacco use Status Tobacco use date assessed 07/16/23 07/16/23 11:21 Patient Tobacco Use Status Former Tobacco user 07/16/23 11:21 Tobacco use type 11/06/22 09:21 e-Cigarette/Vaping Use Never Used 07/16/23 11:21 PHQ-9: PHQ-9 Score PHQ-9: Total score 3 07/16/23 11:31 Depression Screening Interpretation: Negative Thrive Assessment: Date of Thrive Assessment Date Thrive assessed 07/16/23 07/16/23 11:21 Currently or been in a relationship where the following occur: no concerns reported Eyes General: appearance normal, both eyes and all related structures Eyelids: Yes eyelids normal Conjunctivae: conjunctivae normal Neck Neck: Yes normal visual inspection and Yes supple Resp Effort & Inspection: normal respiratory effort Auscultation: clear to auscultation bilaterally Cardio Jugular venous distension: no JVD Rate: regular rate Rhythm: regular rhythm Heart sounds: S1 normal heart sound present and S2 normal heart sound present Extrem General: Yes full ROM Assessment and Plan Assessment & Plan (1) Diabetes: Code(s): E11.9 - Type 2 diabetes mellitus without complications Plan: Continue metformin. A1c goal is equal or less than 7%. (2) HTN (hypertension): Code(s): I10 - Essential (primary) hypertension Qualifiers: Hypertension type: primary hypertension Qualified Code(s): I10 - Essential (primary) hypertension Plan: Continue carvedilol. Blood pressure goal is equal or less than 130/80. (3) Mixed hyperlipidemia: Code(s): E78.2 - Mixed hyperlipidemia Plan: Continue statins. LDL goal is less than 70. (4) Atherosclerotic cardiovascular disease: Code(s): I25.10 - Atherosclerotic heart disease of [place] coronary artery without angina pectoris Plan: Continue aspirin. Orders: Orders Comprehensive [place]. Panel Fast 4 Months E11.9 - Type 2 diabetes mellitus without complications Lipid Panel 4 Months E78.5 - Hyperlipidemia, unspecified Microalbumin, Random (w Creat) 4 Months E11.9 - Type 2 diabetes mellitus without complications Vitamin D 25-OH Total 4 Months E55.9 - Vitamin D deficiency, unspecified Coding Level of Care Code Est Pt Level 4 (15853) Diagnoses Diabetes E11.9 Primary hypertension I10 Hypertension type: primary hypertension Mixed hyperlipidemia E78.2 Atherosclerotic cardiovascular disease I25.10 Additional Codes INESSA-7 Assessment Billing - INESSA-7 Assessment Tool: INESSA-7 Assessment 45130 ([id number]) Time Spent (min) 24
[2023-07-16 11:15] VITALS: BP 138/80; BMI 25.1
== END 2023-07-16 11:41 | disposition home or self-care (01) ==
PROVIDERS: PCP Internal Medicine; Visit Provider Internal Medicine
DX: E11.9 Type 2 diabetes mellitus without complications (principal); I10 Essential (primary) hypertension; E78.2 Mixed hyperlipidemia; I25.10 Atherosclerotic heart disease of native coronary artery without angina pectoris
CPT/HCPCS: 99214

== ENCOUNTER → 2023-07-25 13:46 | Outpatient (BNVA) | payer OTHER, SELFPAY | PROVIDERS: PCP Internal Medicine; Visit Provider Nurse Practitioner Family ==

== ENCOUNTER → 2023-08-07 14:00 | Outpatient (REF) | payer OTHER, SELFPAY ==
--- NOTE | 2023-08-07 14:02 | CA_ITS ---
Transthoracic Echocardiogram Patient (Last, First, Middle): Dawood Ag, Gender: Male Date of : 1965 Age: 58 Procedure Date: 08/07/2023 Procedure Type: Transthoracic Echocardiogram Location: OP Height: 172.72 cm Weight: 72.58 kg BSA: 1.86 m2 Heart Rate: bpm BP: 146 / 80 mmHg Carpenter'S Assistant: TO Referring MD: Lashawn Hester GASTROENTEROLOGY TEACHER-Amna Glue Mounter Operator: Tavon Philip MD Symptoms: R06.02 - Shortness of breath Study Quality: Fair/Contrast ECG Rhythm: Sinus Conclusions: - Normal LV systolic function with LVEF of 60 65% with grade 1 diastolic dysfunction Findings Procedure Information Contrast agent, definity, is being given per protocol without apparent complications. Left Ventricle Normal left ventricular cavity size. There is normal left ventricular wall thickness. The left ventricular systolic function is normal. The visually estimated ejection fraction is between 60-65%. Spectral Doppler is indicative of an impaired relaxation filling pattern. E/E prime ratio is <8, consistent with normal filling pressures. Evidence suggests grade I (mild) diastolic dysfunction. There is moderate septal asymmetric hypertrophy. Peak GLS is -16.0%, which is mildly reduced. Wall Motion Rest Echo Findings The basal inferior and basal inferoseptal segments are hypokinetic. All other scored wall segments showed normal motion. Prior Study Comparison No significant change compared to prior study dated: 01/22/2023. Measurements 2D Linear Measurements IVSd: 1.53 0.6-0.9/0.6-1.0 cm LVIDd: 3.61 3.9-5.3/4.2-5.9 cm LVIDd Index: 1.94 2.4-3.2/2.2-3.1 cm/m2 LVIDs: 2.60 2.0-3.6 cm LVPWd: 0.86 0.7-1.1 cm LV Mass: 175.94 67-162/88-224 g LV Mass Index: 94.59 43-95/49-115 g/m2 LVOT Diam: 2.20 3.0+(-)1.3 cm 2D Systolic Function EF 4C: 65.30 >55% EF 2C: 58.30 >55% EF BiP: 62.80 >55% Mitral Valve MV Pk E: 0.68 MV PK A: 0.79 MV Decel Time: 235.00 E/A: 0.90 E'Lateral: 9.57 E'Medial: 4.46 E/E' Med: 15.30 E/E' Lat: 7.10 PHT: 69.00 MVA PHT: 3.19 Decel [place]: 2.90 LVOT LVOT Pk [place]: 1.11 LVOT Mn [place]: 0.77 LVOT VTI: 0.26 LVOT Pk Grad: 5.00 LVOT Mn Grad: 3.00 LVOT Diam: 2.20 LVOT Area: 3.80 Diastolic Function MV Pk E: 0.68 MV Pk A: 0.79 E/A: 0.90 E'Medial: 4.46 E/E' Med: 15.30 E' Laterial: 9.57 E/E' Lat: 7.10 Tricuspid Valve RA Press: 3.00 Updated in Other Vendor System with Status of Final Tavon Philip MD electronically signed on 08/08/2023 2:26:56 PM with status of Final
== END ==
LOC: HO.CARD 14:00
PROVIDERS: PCP Internal Medicine; Visit Provider Nurse Practitioner Family
DX: I25.10 Atherosclerotic heart disease of native coronary artery without angina pectoris (principal); R06.02 Shortness of breath; Z95.1 Presence of aortocoronary bypass graft
CPT/HCPCS: 93308; 93356; Q9957

== ENCOUNTER → 2023-08-07 14:02 | Outpatient (BNV) | payer OTHER, SELFPAY | PROVIDERS: PCP Internal Medicine; Visit Provider Internal Medicine Cardiovascular Disease | DX: I51.9 Heart disease, unspecified (principal); R06.02 Shortness of breath | CPT/HCPCS: 93308 ==

== ENCOUNTER 2023-08-27 09:32 | Outpatient (REF) | payer OTHER, SELFPAY ==
[2023-08-27 09:48] LABS: MANUAL DIFF FLAG NO
[2023-08-27 10:34] LABS: Basophils Absolute Auto 0.1 X10*3/uL (0.0-0.2); Basophils Percent Auto 0.7 % (0-2); Eosinophils Absolute Auto 0.1 X10*3/uL (0.0-0.4); Eosinophils Percent Auto 1.5 % (0-4); Hematocrit 46.6 % (42.0-52.0); Hemoglobin 16.2 g/dl (14.0-18.0); Imm Gran Abs Auto 0.02 X10*3/uL (0.00-0.03); Imm Gran Pct Auto 0.3 % (0.0-0.4); Lymphocytes Absolute Auto 1.9 X10*3/uL (1.2-4.9); Lymphocytes Percent Auto 25.9 % (20-40); Mean Corpuscular HGB Conc 34.8 g/dl (31.0-36.0); Mean Corpuscular Hemoglobin 30.3 pg (27.0-33.0); Mean Corpuscular Volume 87.1 fL (80.0-98.0); Mean Platelet Volume 12.3 fL (9.4-12.4); Monocytes Absolute Auto 0.5 X10*3/uL (0.1-1.2); Monocytes Percent Auto 6.9 % (2-11); Neutrophils Absolute Auto 4.6 x10*3/uL (2.0-8.3); Neutrophils Percent Auto 64.7 % (45-73); Platelet Count 196 X10*3/uL (160-400); Red Blood Count 5.35 X10*6/uL (4.60-5.80); Red Cell Distribution Width 13.4 % (11.0-16.0); White Blood Count 7.2 X10*3/uL (4.8-10.8)
[2023-08-27 11:05] LABS: Creatinine Urine 125.91 mg/dL; Microalbum/Creatinine Ratio Ur 89.7 ug/mg cr (<30)
[2023-08-27 11:10] LABS: Alanine Aminotransferase 26 U/L (0-40); Albumin Level 4.4 g/dL (3.5-5.0); Alkaline Phosphatase 79 U/L (39-117); Anion Gap 10 (12-20); Aspartate Amino Transferase 16 U/L (5-37); Bilirubin Total 0.6 mg/dL (0.0-1.0); Blood Urea Nitrogen 17 mg/dL (9-16); Calcium 9.9 mg/dL (8.4-10.2); Carbon Dioxide 29 mmol/L (22-29); Chloride 107 mmol/L (96-108); Cholesterol 167 mg/dL (<200); Estimated Glomerular Filt Rate > 60; Glucose Fasting 198 mg/dL (60-99); HDL Cholesterol 53 mg/dL (>40); Iron 117 mcg/dL (45-160); LDL Cholesterol Calculated 97 mg/dL (<100); Percent Iron Saturation 40 % (15-50); Potassium 4.9 mmol/L (3.3-5.1); Sodium 141 mmol/L (135-145); Total Iron Binding Capacity 294 mcg/dL (228-428); Total Protein 7.6 g/dL (6.5-8.0); Triglycerides 89 mg/dL (<150); Unsaturated Iron Binding 177 ug/dL
[2023-08-27 11:40] LABS: Folate 9.5 ng/mL (> or = 4.0); Vitamin B12 632 pg/mL (200-900)
== END 2023-08-27 09:33 | disposition home or self-care (01) ==
LOC: HO.LAB 09:32
PROVIDERS: Visit Provider Internal Medicine
DX: D64.9 Anemia, unspecified (principal); E53.8 Deficiency of other specified B group vitamins; E11.9 Type 2 diabetes mellitus without complications; E78.5 Hyperlipidemia, unspecified
CPT/HCPCS: 36415; 80053; 80061; 82043; 82570; 82607; 82746; 83540; 85025

== ENCOUNTER 2023-09-11 11:12 | Outpatient (AMB) | payer OTHER, SELFPAY ==
--- NOTE | 2023-09-11 12:10 | MHC.OFFWIV ---
Intake Vital Signs 09/11/23 12:13 Height 5 ft 8 in Weight 165 lb BMI 25.1 BP 118/72 Blood Pressure Location Lt brachial Position Sitting Pulse 75 Pulse Source Pulse Oximeter Pulse Oximetry (%) 98 Oxygen Delivery Method Room Air Intake Visit Reasons: EP RT Leg pain/redness Intake Note: Patient here for right leg pain that started last week, he states bottom of his leg id red and swollen. Patient Tobacco Use Status: Former Tobacco user Allergies nickel [NICKEL] Adverse Reaction (Intermediate, Verified 09/11/23 12:17) RASH Do you need a note to return to daycare/school/sports/work: No HPI HPI Comments History of Present Illness Details 58 y/o male patient who presents to walk in clinic with c/o right lower leg pain and swelling. Pt has T2DM and has an extensive h/o Cardiac disease. Reports noticing his right lower leg changing to red and pain x 3 days ago. Denies any injury or trauma. [facility] Medical History Atherosclerotic cardiovascular disease Mixed hyperlipidemia Minimal depression Screen for colon cancer Colon polyps Microalbuminuria Physical exam Hyperlipidemia HTN (hypertension) Diabetes Surgical History Hx of CABG Hx of eye surgery H/O colonoscopy History of cataract surgery H/O shoulder surgery Family History Father Diabetes HTN (hypertension) Hyperlipidemia Mother Diabetes HTN (hypertension) Hyperlipidemia Social History Household Members: Spouse Housing: Apartment Alcohol intake: never Patient Tobacco Use Status: Former Tobacco user e-Cigarette/Vaping Use: Never Used Second Hand Smoke Exposure: No service: No Current occupational status: unemployed Cognitive needs: No Hearing needs: No Vision needs: Yes Review of Systems Const All systems reviewed & are unremarkable except as noted in HPI and below Physical Exam Vital Signs: Last Vital Signs Pulse 75 09/11/23 12:13 BP 118/72 09/11/23 12:13 Pulse Ox 98 09/11/23 12:13 Oxygen Delivery Method Room Air 09/11/23 12:13 BMI result Body Mass Index 25.1 Const General: no acute distress Orientation/consciousness: patient oriented x3 Neuro General: patient oriented x3 and gait normal Extrem Right lower extremity: lower leg Details: erythema, tenderness and pitting edema (By the Ankle) Details: 2+ and ankle Details: tenderness, swelling and normal ROM Left lower extremity: normal to inspection Assessment & Plan Assessment & Plan (1) Cellulitis of skin: Code(s): L03.90 - Cellulitis, unspecified Plan: - Manage T2DM - F/U with PCP Medications: New cephalexin 250 mg PO BID 7 days 14 caps 0RF L03.90 - Cellulitis, unspecified Coding Level of Care Code Est Pt Level 3 (88119) Diagnoses Cellulitis of skin L03.90 Time Spent (min) 15
[2023-09-11 12:13] VITALS: BP 118/72; PULSE 75; O2SAT 98; BMI 25.1
== END 2023-09-11 12:35 | disposition home or self-care (01) ==
PROVIDERS: PCP Internal Medicine; Visit Provider Nurse Practitioner Family
DX: L03.90 Cellulitis, unspecified (principal)
CPT/HCPCS: 99213

== ENCOUNTER 2023-10-15 17:05 | Outpatient (AMB) | payer OTHER, SELFPAY ==
--- NOTE | 2023-10-15 17:24 | MHC.PC.OV ---
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 Accompanied by: Self / Same As Patient Allergies nickel [NICKEL] Adverse Reaction (Intermediate, Verified 10/15/23 17:34) RASH Medication List - Last Reconciled 10/15/23 by Gabriela Ball MD aspirin 81 mg PO DAILY atorvastatin 80 mg PO BEDTIME blood sugar diagnostic (FreeStyle Lite Strips) Use 1 test strip twice a day blood-glucose meter (FreeStyle Lite Meter kit) As directed blood-glucose sensor (FreeStyle Alvino 3 Sensor device) As directed carvedilol 3.125 mg PO BID empagliflozin (Jardiance) 10 mg PO DAILY 90 days lancets (FreeStyle Lancets) Use 1 lancet twice a day metformin 1,000 mg (2 x 500 mg) PO BID 90 days Tobacco use date assessed: 07/16/23 Dental Screening Dental Screen Date: 07/16/23 Did you have a dental visit in the last 12 months?: No Did you have a dental problem in the last 6 months where you did not have access to dental care?: No Was dental information given to patient?: Patient has dentist HPI HPI Comments History of Present Illness Details This is a 58-year-old male with diabetes mellitus type 2, mixed hyperlipidemia and atherosclerotic cardiovascular disease that comes today complaining of right leg discoloration and cold legs associated with venous insufficiency. I will refer him to vascular surgery. A1c not on goal and I will increase Jardiance. Lipid panel will be order and his LDL goal should be less than 70. On aspirin for secondary prophylaxis of atherosclerotic cardiovascular disease. No chest pain or shortness of breath. [facility] Medical History (Updated 10/15/23 @ 20:49 by Gabriela Ball MD) Ventricular tachyarrhythmia Atherosclerotic cardiovascular disease Mixed hyperlipidemia Minimal depression Screen for colon cancer Colon polyps Microalbuminuria Physical exam Hyperlipidemia HTN (hypertension) Diabetes Surgical History Hx of CABG Hx of eye surgery H/O colonoscopy History of cataract surgery H/O shoulder surgery Family History Father Diabetes HTN (hypertension) Hyperlipidemia Mother Diabetes HTN (hypertension) Hyperlipidemia Social History Household Members: Spouse Housing: Apartment Alcohol intake: never Patient Tobacco Use Status: Former Tobacco user e-Cigarette/Vaping Use: Never Used Second Hand Smoke Exposure: No service: No Current occupational status: employed Current occupational exposures/hazards: No Cognitive needs: No Hearing needs: No Vision needs: Yes Questionnaire PHQ-9 Over the last 2 weeks, how often have you been bothered by any of the following problems? 1. Little interest or pleasure in doing things: several days 2. Feeling down, depressed, or hopeless: several days 3. Trouble falling or staying asleep, or sleeping too much: several days 4. Feeling tired or having little energy: several days 5. Poor appetite or overeating: several days 6. Feeling bad about yourself - or that you are a failure or have let yourself or your family down: several days 7. Trouble concentrating on things, such as reading the newspaper or watching television: several days 8. Moving or speaking so slowly that other people could have noticed. Or the opposite - being so fidgety or restless that you have been moving around a lot more than usual: not at all 9. Thoughts that you would be better off or of hurting yourself in some way: several days Total score: 8 Depression Screening Interpretation: Positive Depression Screening Follow-up: Existing condition Depression Screening Done: Yes 83866 - PHQ-9 Billing: Yes Source: Developed by Drs. Julio Fernández, Katherine Celis, Adrian Mcneill and colleagues, with an educational augustine from [employer]. Thrive Questionnaire Date Thrive assessed: 10/15/23 I am a: Patient What is your living situation today?: I have a steady place to live Within the past 12 months, did the food you bought not last and you didn't have the money to get more?: Never true Within the past 12 months, did you worry whether your food would run out before you got money to buy more?: Never true Do you have trouble paying for medicines?: No Do you have trouble getting transportation to medical appointments?: No Do you have trouble paying your heating and electricity bill?: No Do you have trouble taking care of your child, family member or friend?: No Do you have trouble with day-to-day activities such as bathing, preparing meals, shopping, managing finances, etc.?: No Are you currently unemployed and looking for a job?: No Are you interested in more education?: No Please select the resources that you would like help with: None Currently or been in a relationship where the following occur: no concerns reported THRIVE Score: 0 AUDIT C Alcohol Use Questionnaire (AUDIT-C) 1. How often do you have a drink containing alcohol?: Never Total Score: 0 Score Reviewed/Action Taken: No INESSA-7 AMB Questionnaire INESSA-7 Date INESSA - 7 assessed: 10/15/23 Feeling nervous, anxious, or on edge: 1 = Several days Not being able to stop or control worryin = Not at all Worrying too much about different things: 1 = Several days Trouble relaxin = Several days Being so restless that it is hard to sit still: 0 = Not at all Becoming easily annoyed or irritable: 1 = Several days Feeling afraid as if something awful might happen: 1 = Several days Total INESSA-7 score (0-4 normal; 5-9 mild; 10-14 moderate; 15-21 severe): 5 Source: Developed by Drs. Julio Fernández, Katherine Celis, Adrian Mcneill and colleagues, with an educational augustine from [employer]. INESSA-7 Assessment Billing INESSA-7 Assessment Tool: INESSA-7 Assessment 13032 Review of Systems Const All systems reviewed & are unremarkable except as noted in HPI and below Eyes Reports no additional complaints, Denies change in vision and Denies other visual disturbances Card Denies chest pain at rest, Denies chest pain with activity, Denies edema, Denies irregular heart rhythm, Denies claudication, Denies dyspnea, Denies dyspnea on exertion, Denies orthopnea, Denies paroxysmal nocturnal dyspnea and Denies slow heart rate Resp Denies cough, Denies dyspnea and Denies dyspnea on exertion Physical exam (Primary Care) Tobacco/Smoking Status: Tobacco use Status Tobacco use date assessed 07/16/23 10/15/23 17:28 Patient Tobacco Use Status Former Tobacco user 10/15/23 17:28 Tobacco use type 11/06/22 09:21 e-Cigarette/Vaping Use Never Used 10/15/23 17:28 PHQ-9: PHQ-9 Score PHQ-9: Total score 8 10/15/23 17:38 Depression Screening Interpretation: Positive Depression Screening Follow-up: Existing condition Thrive Assessment: Date of Thrive Assessment Date Thrive assessed 10/15/23 10/15/23 17:28 Currently or been in a relationship where the following occur: no concerns reported Cardio Jugular venous distension: no JVD Rate: regular rate Rhythm: regular rhythm Heart sounds: S1 normal heart sound present and S2 normal heart sound present GI Inspection: Yes normal to inspection Palpation (GI): Soft to palpation and nontender Auscultation: normal bowel sounds Extrem General: Yes full ROM Results AMB Hemoglobin A1c AMB Hemoglobin A1c 8.0 % Last Edit by RUBY Saldivar on 10/15/23 17:29 Results Reviewed Results Reviewed: Laboratory Last Values Hgb A1c (Clinic) 8.0 % (4.0-6.0) H 10/15/23 17:07 Assessment and Plan Assessment & Plan (1) Diabetes: Code(s): E11.9 - Type 2 diabetes mellitus without complications Plan: Continue metformin. Increase Jardiance. A1c goal is equal or less than 7%. (2) Mixed hyperlipidemia: Code(s): E78.2 - Mixed hyperlipidemia Plan: Continue statins. LDL goal less than 70. (3) Venous (peripheral) insufficiency: Code(s): I87.2 - Venous insufficiency (chronic) (peripheral) Plan: Referred to vascular surgery (4) Atherosclerotic cardiovascular disease: Code(s): I25.10 - Atherosclerotic heart disease of [place] coronary artery without angina pectoris Plan: Continue aspirin for secondary prophylaxis. Orders: Orders AMB Hemoglobin A1c Today E11.9 - Type 2 diabetes mellitus without complications Referrals Vascular Surgery Referral I87.2 - Venous insufficiency (chronic) (peripheral) Medications: New empagliflozin (Jardiance) 25 mg PO DAILY 90 tabs 1RF 90 days Discontinued empagliflozin (Jardiance) Discontinued Reason: Patient Completed Course 10 mg PO DAILY 90 days 90 tabs 1RF E11.9 - Type 2 diabetes mellitus without complications Coding Level of Care Code Est Pt Level 4 (86239) Diagnoses Diabetes E11.9 Mixed hyperlipidemia E78.2 Venous (peripheral) insufficiency I87.2 Atherosclerotic cardiovascular disease I25.10 Additional Codes INESSA-7 Assessment Billing - INESSA-7 Assessment Tool: INESSA-7 Assessment 81495 ([id number]) Time Spent (min) 23
== END 2023-10-15 17:39 | disposition home or self-care (01) ==
PROVIDERS: PCP Internal Medicine; Visit Provider Internal Medicine
DX: E11.9 Type 2 diabetes mellitus without complications (principal)
CPT/HCPCS: 83036; 99214

== ENCOUNTER 2023-10-21 08:57 | Outpatient (AMB) | payer OTHER, SELFPAY ==
--- NOTE | 2023-10-21 09:00 | MHC.OFFVIS ---
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 Name: pipe landry [id number] Allergies nickel [NICKEL] Adverse Reaction (Intermediate, Verified 10/21/23 09:03) RASH Medication List - Last Reconciled 10/21/23 by Lashawn Hester NP-C aspirin 81 mg PO DAILY atorvastatin 80 mg PO BEDTIME blood sugar diagnostic (FreeStyle Lite Strips) Use 1 test strip twice a day blood-glucose meter (FreeStyle Lite Meter kit) As directed blood-glucose sensor (FreeStyle Alvino 3 Sensor device) As directed carvedilol 3.125 mg PO BID empagliflozin (Jardiance) 25 mg PO DAILY 90 days lancets (FreeStyle Lancets) Use 1 lancet twice a day metformin 1,000 mg (2 x 500 mg) PO BID 90 days HPI 4 month follow-up HPI Details Dawood is a 58-year-old male with past medical history of hypertension, hyperlipidemia, diabetes, CAD, coronary artery bypass grafting 11/2022, atypical chest discomfort who presents for follow-up Today he reports that still has anterior chest discomfort at times if he takes a deep breath, does lifting or uses his arms such as in cardiac rehab. He does not get chest discomfort brought on by walking or stair climbing. He had restarted cardiac rehab which he says he is tolerating well. No shortness of breath, presyncope, syncope, PND, orthopnea or edema. Taking all meds as directed. Certified language interpreter used. [facility] Medical History Ventricular tachyarrhythmia Atherosclerotic cardiovascular disease Mixed hyperlipidemia Minimal depression Screen for colon cancer Colon polyps Microalbuminuria Physical exam Hyperlipidemia HTN (hypertension) Diabetes Surgical History Hx of CABG Hx of eye surgery H/O colonoscopy History of cataract surgery H/O shoulder surgery Family History Father Diabetes HTN (hypertension) Hyperlipidemia Mother Diabetes HTN (hypertension) Hyperlipidemia Social History Household Members: Spouse Housing: Apartment Alcohol intake: never Patient Tobacco Use Status: Former Tobacco user e-Cigarette/Vaping Use: Never Used Second Hand Smoke Exposure: No service: No Current occupational status: employed Current occupational exposures/hazards: No Cognitive needs: No Hearing needs: No Vision needs: Yes Review of Systems Const All systems reviewed & are unremarkable except as noted in HPI and below ENT Denies dizziness Card Details: anterior chest discomfort Denies chest pain, Denies chest pain at rest, Denies chest pain with activity, Denies rapid heart rate, Denies pedal edema, Denies edema, Denies leg edema, Denies lightheadedness, Denies palpitations, Denies dyspnea, Reports dyspnea on exertion and Denies orthopnea Resp Denies cough, Denies dyspnea and Reports dyspnea on exertion GI Denies hematochezia and Denies change in stool character Musc Denies abnormal gait, Denies limited range of motion, Denies muscle cramps, Denies muscle weakness, Denies numbness, Denies radiating pain into limb, Denies stiffness and Denies tingling Neuro Denies abnormal gait, Denies dizziness, Denies numbness and Denies tingling Endo Denies palpitations Physical Exam Vital Signs: Last Vital Signs Pulse 68 10/21/23 09:01 BP 100/72 10/21/23 09:01 BMI result Body Mass Index 24.5 Const General: cooperative, healthy appearing, comfortable and no acute distress Orientation/consciousness: patient oriented x3 Neck Neck: Yes normal visual inspection and Yes no JVD Chest Other: Anterior chest wall soreness to palpation -grimaces Chest palpation & inspection: normal inspection of the chest Resp Effort & Inspection: normal respiratory effort Auscultation: clear to auscultation bilaterally, no rales, no rhonchi and no wheezes Cardio Jugular venous distension: no JVD Rate: regular rate Rhythm: regular rhythm Heart sounds: S1 normal heart sound present, S2 normal heart sound present, no murmurs and no rubs Neuro General: patient oriented x3 Extrem General: Yes normal to inspection, No no pedal edema and No calf tenderness Psych Appearance: grossly normal Mental Status: mental status grossly normal Speech and movement: Normal speech and movement present Office Procedures EKG Details: Today, read by me, normal sinus rhythm, can't exclude prior anterior and inferior infarct, rate 69, QTc 400ms [id number], Complete Assessment & Plan Assessment & Plan (1) Atherosclerotic cardiovascular disease: Code(s): I25.10 - Atherosclerotic heart disease of [place] coronary artery without angina pectoris Plan: History of chest discomfort with cardiac catheterization showing multi-vessel CAD. He underwent a 4 vessel Coronary artery bypass grafting on 11/28/2022. Echocardiogram done 01/22/2023 showed EF 60-65%, grade 1 diastolic dysfunction, basal inferior segment akinetic. On last visit and today he describes discomfort which sounds most like chest wall in nature. It is not brought on by walking or stair climbing. It is present with deep inspiration, certain body positions and use of his upper torso such as arm exercises in cardiac rehab and lifting. He is back in cardiac rehab which he says he is tolerating well. EKG done today showing sinus rhythm, can not exclude prior inferior and anterior infarct, compared to prior and no significant changes. Echocardiogram was done on 08/07/2023 showing EF 60-65%, grade 1 diastolic dysfunction, moderate asymmetrical septal hypertrophy, basal inferior basal inferior septal hypokinetic. Blood pressure is well controlled. Will have him continue aspirin indefinitely. Continue Plavix at this time, can be stopped 1 year from his surgery, 11/29/2023. Continue carvedilol and high-dose atorvastatin. [place] LDL goal less than 70. Labs done 08/27/2023 showed LDL 97. Will add Zetia 10 mg daily. He has orders in place from PCP to have his lipids rechecked next month. Continue physical activity as tolerated. Signs and symptoms of angina reviewed. Cardiology follow-up 6 months, sooner if needed. (2) Hx of CABG: Comment: 11/28/2022 hassan to LAD, GSV to PDA, ramus, left radial to OM Code(s): Z95.1 - Presence of aortocoronary bypass graft Plan: As above (3) HTN (hypertension): Code(s): I10 - Essential (primary) hypertension Qualifiers: Hypertension type: primary hypertension Qualified Code(s): I10 - Essential (primary) hypertension Plan: Well controlled at this time. No med changes made. (4) Hyperlipidemia: Code(s): E78.5 - Hyperlipidemia, unspecified Qualifiers: Hyperlipidemia type: other hyperlipidemia Qualified Code(s): E78.49 - Other hyperlipidemia Plan: [place] LDL goal less than 70. Mildly elevated on last check. Adding Zetia to his atorvastatin Plan Time spent on chart review, documentation, interview and assessment Medications: New ezetimibe (Zetia) 10 mg PO DAILY 30 tabs 5RF Coding Level of Care Code Est Pt Level 4 (90339) Diagnoses Atherosclerotic cardiovascular disease I25.10 Hx of CABG Z95.1 Primary hypertension I10 Hypertension type: primary hypertension Other hyperlipidemia E78.49 Hyperlipidemia type: other hyperlipidemia CPT Codes EKG - CPT: [id number], Complete ([id number]) Time Spent (min) 28
[2023-10-21 09:01] VITALS: BP 100/72; PULSE 68; BMI 24.5
== END 2023-10-21 09:54 | disposition home or self-care (01) ==
PROVIDERS: PCP Internal Medicine; Visit Provider Nurse Practitioner Family
DX: I25.10 Atherosclerotic heart disease of native coronary artery without angina pectoris (principal); Z95.1 Presence of aortocoronary bypass graft; I10 Essential (primary) hypertension; E78.49 Other hyperlipidemia
CPT/HCPCS: 93010; 99214

== ENCOUNTER → 2023-10-21 08:57 | Outpatient (BNVA) | payer OTHER, SELFPAY | PROVIDERS: PCP Internal Medicine; Visit Provider Nurse Practitioner Family | DX: I25.10 Atherosclerotic heart disease of native coronary artery without angina pectoris (principal); I10 Essential (primary) hypertension; E78.49 Other hyperlipidemia; Z95.1 Presence of aortocoronary bypass graft | CPT/HCPCS: 93005; 99212 ==

== ENCOUNTER 2023-11-12 08:53 | Outpatient (AMB) | payer OTHER, SELFPAY ==
[2023-11-12 09:08] VITALS: BP 122/70; BMI 23.9
--- NOTE | 2023-11-12 09:08 | A.OFFPC_ITS ---
Vital Signs 11/12/23 09:08 Height 5 ft 8 in Weight 157 lb BMI 23.9 BP 122/70 Blood Pressure Location Lt brachial Position Sitting Intake Visit Reasons: Annual Exam Intake Note: Patient here for an annual physical exam [place] Required: No Accompanied by: Spouse Allergies nickel [NICKEL] Adverse Reaction (Intermediate, Verified 11/12/23 09:10) RASH Medication List - Last Reconciled 11/12/23 by Gabriela Ball MD aspirin 81 mg PO DAILY atorvastatin 80 mg PO BEDTIME blood sugar diagnostic (FreeStyle Lite Strips) Use 1 test strip twice a day blood-glucose meter (FreeStyle Lite Meter kit) As directed blood-glucose sensor (FreeStyle Alvino 3 Sensor device) As directed carvedilol 3.125 mg PO BID empagliflozin (Jardiance) 25 mg PO DAILY 90 days ezetimibe (Zetia) 10 mg PO DAILY lancets (FreeStyle Lancets) Use 1 lancet twice a day metformin 1,000 mg (2 x 500 mg) PO BID 90 days Tobacco use date assessed: 07/16/23 Dental Screening Dental Screen Date: 07/16/23 HPI HPI Comments History of Present Illness Details This is a 58-year-old male with diabetes that comes accompanied by for his physical exam. A1c slightly elevated but he has not start Jardiance 25 mg yet and is only taking 10 mg. Diabetic eye exam was recently. Colonoscopy was done 2015 showing tubular adenoma and now he needs to wait for Cardiology to clear him for colonoscopy. Denies any chest pain or shortness of breath. Complains of bilateral leg swelling and weakness. Also has pain when walking and days are cold sometimes. Will see vascular surgery soon. [facility] Medical History Ventricular tachyarrhythmia Atherosclerotic cardiovascular disease Mixed hyperlipidemia Minimal depression Screen for colon cancer Colon polyps Microalbuminuria Physical exam Hyperlipidemia HTN (hypertension) Diabetes Surgical History Hx of CABG Hx of eye surgery H/O colonoscopy History of cataract surgery H/O shoulder surgery Family History Father Diabetes HTN (hypertension) Hyperlipidemia Mother Diabetes HTN (hypertension) Hyperlipidemia Social History Household Members: Spouse Housing: Apartment Alcohol intake: never Patient Tobacco Use Status: Former Tobacco user e-Cigarette/Vaping Use: Never Used Second Hand Smoke Exposure: No service: No Current occupational status: employed Current occupational exposures/hazards: No Cognitive needs: No Hearing needs: No Vision needs: Yes Questionnaire Thrive Questionnaire Date Thrive assessed: 10/15/23 INESSA-7 AMB Questionnaire INESSA-7 Date INESSA - 7 assessed: 10/15/23 Source: Developed by Drs. Julio Fernández, Katherine Celis, Adrian Mcneill and colleagues, with an educational augustine from [employer]. Review of Systems Const All systems reviewed & are unremarkable except as noted in HPI and below Eyes Reports no additional complaints, Denies change in vision and Denies other visual disturbances Card Denies chest pain at rest, Denies chest pain with activity, Denies edema, Denies irregular heart rhythm, Denies claudication, Denies dyspnea, Denies dyspnea on exertion, Denies orthopnea, Denies paroxysmal nocturnal dyspnea and Denies slow heart rate Resp Denies cough, Denies dyspnea and Denies dyspnea on exertion GI Denies abdominal pain, Denies change in bowel habits, Denies excessive flatus, Denies nausea and Denies vomiting Denies urinary hesitancy, Denies urinary incontinence and Denies urinary urgency Physical exam (Primary Care) Vital Signs: Last Vital Signs BP 122/70 11/12/23 09:08 BMI result Body Mass Index 23.9 Tobacco/Smoking Status: Tobacco use Status Tobacco use date assessed 07/16/23 11/12/23 09:15 Patient Tobacco Use Status Former Tobacco user 11/12/23 09:15 Tobacco use type 11/06/22 09:21 e-Cigarette/Vaping Use Never Used 11/12/23 09:15 Thrive Assessment: Date of Thrive Assessment Date Thrive assessed 10/15/23 11/12/23 09:15 Const Orientation/consciousness: patient oriented x3 HENMT Head: Yes normal to inspection, Yes normocephalic and Yes atraumatic Ears: external ears normal Eyes General: appearance normal, both eyes and all related structures Eyelids: Yes eyelids normal Conjunctivae: conjunctivae normal Neck Neck: Yes normal visual inspection and Yes supple Resp Effort & Inspection: normal respiratory effort Auscultation: clear to auscultation bilaterally Cardio Jugular venous distension: no JVD Rate: regular rate Rhythm: regular rhythm Heart sounds: S1 normal heart sound present and S2 normal heart sound present GI Inspection: Yes normal to inspection Palpation (GI): Soft to palpation and nontender Auscultation: normal bowel sounds Skin General skin exam: no rashes or lesions noted Neuro General: patient oriented x3 and no focal motor deficits Extrem General: Yes full ROM Psych Appearance: grossly normal Assessment and Plan Assessment & Plan (1) Physical exam: Code(s): Z00.00 - Encounter for general adult medical examination without abnormal findings Plan: Repeat in a year. (2) Diabetes: Code(s): E11.9 - Type 2 diabetes mellitus without complications Plan: Increase Jardiance to 25 mg. Continue metformin. A1c goal is equal or less than 7%. Orders: Orders Lipid Panel Today E78.5 - Hyperlipidemia, unspecified Microalbumin, Random (w Creat) Today E11.9 - Type 2 diabetes mellitus without complications Comprehensive [place]. Panel Fast Today E11.9 - Type 2 diabetes mellitus without complications Medications: Refilled empagliflozin (Jardiance) 25 mg PO DAILY 90 tabs 1RF 90 days Coding Level of Care Code Est Pt Prev Care 40-64y(02436) Diagnoses Physical exam Z00.00 Diabetes E11.9 Time Spent (min) 33
== END 2023-11-12 09:53 | disposition home or self-care (01) ==
PROVIDERS: Visit Provider Internal Medicine
DX: Z00.00 Encounter for general adult medical examination without abnormal findings (principal); E11.9 Type 2 diabetes mellitus without complications
CPT/HCPCS: 99396

== ENCOUNTER 2023-12-02 13:30 | Outpatient (AMB) | payer OTHER, SELFPAY ==
--- NOTE | 2023-12-02 13:46 | MHC.OFFVIS ---
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 He has bilateral leg swelling and pain. Visible swelling in patient's right ankle. Patient also has discoloration on his right leg . His legs are also tired , states his legs feel heavy going up and down stairs. Also cramps. 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 Complaints include pain over varicosities, swelling of lower extremities, cramping, fatigue, and heaviness of the lower extremities. It has been affecting there daily activities including walking, climbing stairs. It is noted more so in right leg. Patient did have lower extremity vein harvest for CABG, he also had upper extremity arterial harvest Patient denies any history of DVT/ PE. Patient denies any history of phlebitis. Trial of compression includes - [id number] They now present for vascular evaluation regarding their varicose veins. PFSH Medical History Ventricular tachyarrhythmia Atherosclerotic cardiovascular disease Mixed hyperlipidemia Minimal depression Screen for colon cancer Colon polyps Microalbuminuria Physical exam Hyperlipidemia HTN (hypertension) Diabetes Surgical History Hx of CABG Hx of eye surgery H/O colonoscopy History of cataract surgery H/O shoulder surgery Family History Father Diabetes HTN (hypertension) Hyperlipidemia Mother Diabetes HTN (hypertension) Hyperlipidemia Social History Household Members: Spouse Housing: Apartment Alcohol intake: never Patient Tobacco Use Status: Former Tobacco user e-Cigarette/Vaping Use: Never Used Second Hand Smoke Exposure: No service: No Current occupational status: employed Current occupational exposures/hazards: No Cognitive needs: No Hearing needs: No Vision needs: Yes Review of Systems Const Reports as per HPI ENT Reports no additional complaints Card Denies chest pain, Denies chest pain at rest and Denies chest pain with activity Resp Denies chest congestion and Denies cough GI Reports no additional complaints Musc Details: pain over varicosities, aching of lower extremities, swelling, cramping, heaviness and tiredness, itching Denies abnormal gait Skin/Breast Reports pruritus and Denies wounds Neuro Reports no additional complaints and Denies abnormal gait Psych Denies no additional complaints Physical Exam Const General: cooperative, healthy appearing and comfortable Orientation/consciousness: oriented to person, oriented to place and oriented to time Neck Carotids: no bruits Chest Chest palpation & inspection: normal inspection of the chest and normal palpation of entire chest wall Resp Effort & Inspection: normal respiratory effort and able to speak in complete sentences Cardio Rate: regular rate Heart sounds: S1 normal heart sound present and S2 normal heart sound present Peripheral pulses: Peripheral pulses 2+ throughout GI Inspection: Yes normal to inspection Skin Other: +2 edema, bilateral skin and calf discoloration CEAP Classification C4 - skin color changes Ep - Etiology Primary As - superficial veins P - reflux General skin exam: dry skin Neuro General: oriented to person, oriented to place and oriented to time Extrem Right lower extremity: full ROM, normal capillary refill and edema Left lower extremity: full ROM, normal capillary refill and edema Psych Mental Status: mental status grossly normal Assessment & Plan Assessment & Plan (1) Varicose veins of right lower extremity with inflammation: Code(s): I83.11 - Varicose veins of right lower extremity with inflammation Category: Medical Plan: In short, the patient has evidence of venous insufficiency. I have discussed the pathophysiology with the patient. In addition I have provided informational material regarding venous disease to the patient. We have discussed conservative measures including compression, elevation, and exercise. I have also provided a handout regarding appropriate use of compression stockings and where to purchase good compression stockings as well. I have taken the liberty of ordering venous insufficiency testing with the patient. They will follow up with me after testing. The patient had an opportunity to ask questions regarding the treatment plan. All questions were answered. Imaging studies, laboratory studies and physical exam results were discussed and reviewed in detail. No major barriers to understanding were identified. The patient expressed understanding and agreement with the above treatment plan. The patient is aware they should contact our office by phone for worsening of the current condition or the appearance of new symptoms. Thank you for allowing me to participate in the vascular care of this patient. If you have any questions or concerns regarding the treatment for the above condition please do not hesitate to contact me. The office telephone contact is [phone]. This note is constructed using voice recognition software. While every effort has been made to ensure accuracy, contact center rep errors may have been included. Thank you for allowing me to participate in the care of your patient. Yours sincerely, Regino Mcgrath MD, FACS, R.P.V.I. Orders: Orders US venous duplex LE BI 1 Week I83.11 - Varicose veins of right lower extremity with inflammation Coding Level of Care Code Est Pt Level 4 (65133) Diagnoses Varicose veins of right lower extremity with inflammation I83.11
== END 2023-12-02 14:17 | disposition home or self-care (01) ==
PROVIDERS: PCP Internal Medicine; Visit Provider Surgery Vascular Surgery
DX: I83.11 Varicose veins of right lower extremity with inflammation (principal)
CPT/HCPCS: 99213

== ENCOUNTER → 2023-12-02 13:30 | Outpatient (BNVA) | payer OTHER, SELFPAY | PROVIDERS: PCP Internal Medicine; Visit Provider Surgery Vascular Surgery | DX: I83.11 Varicose veins of right lower extremity with inflammation (principal) | CPT/HCPCS: 99212 ==

== ENCOUNTER 2023-12-04 13:51 | Outpatient (AMB) | payer OTHER, SELFPAY ==
--- NOTE | 2023-12-04 13:54 | A.OFFVIS_ITS ---
Vital Signs 12/04/23 13:56 Height 5 ft 8 in Weight 160 lb 7.944 oz BMI 24.4 BP 96/62 Blood Pressure Location Lt brachial Position Sitting Pulse 77 Pulse Source Pulse Oximeter Intake Visit Reasons: f/u Type 2 DM-confirmed Intake Note: Patient presents today to follow up on D2MT. 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 Initially diagnosed with T2DM in 2 yrs . Was initially started on treatment with metformin. Current regimen metformin 1000 mg BID Jardiance 25 mg QD Actos 45 mg QD. not taking Not taking Lantus Checks sugars with Alvino 3 . Avg glucose is 136 with GMI of 7.0 Family history of T2DM in mother , maternal side . Has eyes checked yearly, last eye exam 1-2 wks a go , has exam next wk has retinopathy. Denies neuropathy, not , sees podiatry. Has nephropathy,Not on NANCY/ARB. Has HLD, on statin. Denies CAD. Not Had diabetes education but saw environmental services technician Has CAD needing possible CABG PFSH Medical History Ventricular tachyarrhythmia Atherosclerotic cardiovascular disease Mixed hyperlipidemia Minimal depression Screen for colon cancer Colon polyps Microalbuminuria Physical exam Hyperlipidemia HTN (hypertension) Diabetes Surgical History Hx of CABG Hx of eye surgery H/O colonoscopy History of cataract surgery H/O shoulder surgery Family History Father Diabetes HTN (hypertension) Hyperlipidemia Mother Diabetes HTN (hypertension) Hyperlipidemia Social History Household Members: Spouse Housing: Apartment Alcohol intake: never Patient Tobacco Use Status: Former Tobacco user e-Cigarette/Vaping Use: Never Used Second Hand Smoke Exposure: No service: No Current occupational status: employed Current occupational exposures/hazards: No Cognitive needs: No Hearing needs: No Vision needs: Yes Physical Exam Vital Signs: Last Vital Signs Pulse 77 12/04/23 13:56 BP 96/62 12/04/23 13:56 BMI result Body Mass Index 24.4 Absence of Cushingoid features. Absence of acromegalic features. Neck exam reveals nl size thyroid about 15 gms. No thyroid nodules palpable. No carotid bruits present. Lungs CTA. Heart S1 S2, Reg R/R. No M/R/ G. Skin exam reveals absence of vitiligo or acanthosis nigricans. Abdominal exam reveals Soft NT/ND with NA BS. No organomegaly present. Neck Other: . Extrem Other: Visual exam of foot performed. No ulcerations or open lesions. No onchomycosis, no callouses.Pulses 2 + distally Sensation intact to monofilament exam. Vibratory sensation sensed is decreased with 128 Hz tuning fork. There is a callus in L foot with some excoriation Results Reviewed Results Reviewed: Laboratory Last Values Glucose (Clinic) 150 mg/dL (60-115) H 12/04/23 14:05 Assessment & Plan Assessment & Plan (1) Diabetes: Code(s): E11.9 - Type 2 diabetes mellitus without complications Category: Medical Plan: This is a 58-year-old male with history of type 2 diabetes being treated with metformin and Actos poor glycemic control and no known microvascular complications namely micro albuminuria. The plan is continue with the present management. This point, patient returned to the care of his primary care provider and returned back to endocrinology should HbA1c deteriorate Coding Level of Care Code Est Pt Level 4 (89667) Diagnoses Diabetes E11.9
[2023-12-04 13:56] VITALS: BP 96/62; PULSE 77; BMI 24.4
[2023-12-04 14:10] LABS: Glucose, Whole Blood 150 mg/dL (60-115)
== END 2023-12-04 14:40 | disposition home or self-care (01) ==
PROVIDERS: PCP Internal Medicine; Visit Provider Internal Medicine Endocrinology, Diabetes & Metabolism
DX: E11.9 Type 2 diabetes mellitus without complications (principal)
CPT/HCPCS: 99214

== ENCOUNTER → 2023-12-04 13:51 | Outpatient (BNVA) | payer OTHER, SELFPAY | PROVIDERS: PCP Internal Medicine; Visit Provider Internal Medicine Endocrinology, Diabetes & Metabolism | DX: E11.9 Type 2 diabetes mellitus without complications (principal) | CPT/HCPCS: 82947; 99212 ==

== ENCOUNTER 2023-12-05 10:00 | Outpatient (RCR) | payer OTHER, SELFPAY ==
[2023-09-10 10:50] LABS: Glucose, Whole Blood 328 mg/dL (60-115)
[2023-09-10 10:50] LABS: Glucose, Whole Blood 327 mg/dL (60-115)
== END 2023-12-10 12:17 | disposition home or self-care (01) ==
LOC: HO.CR 10:00
PROVIDERS: PCP Internal Medicine; Visit Provider Nurse Practitioner Family
DX: I25.10 Atherosclerotic heart disease of native coronary artery without angina pectoris (principal); R06.02 Shortness of breath; Z95.1 Presence of aortocoronary bypass graft
CPT/HCPCS: 82947; 93798

== ENCOUNTER 2023-12-15 12:57 | Outpatient (REF) | payer OTHER, SELFPAY ==
--- NOTE | ~2023-12-15 | US_ITS ---
EXAMINATION: US LOWER EXTREMITY VENOUS (REFLUX EXAM), BILATERAL CLINICAL INDICATION: Varicose veins of right lower extremity with inflammation COMPARISON: Venous insufficiency exam 11/11/2022 TECHNIQUE: Color flow triplex imaging and compression Doppler was performed to evaluate both the deep and the superficial systems bilaterally. To evaluate the superficial system, the examination was performed in the upright position. Color-flow Doppler ultrasound and compression ultrasound were utilized. In addition, maneuvers were utilized to demonstrate reflux. FINDINGS: 1. DEEP VENOUS ULTRASOUND OF THE RIGHT LOWER EXTREMITY: Common Femoral Vein: Compressible, normal respiratory variation and augmented flow. Femoral Vein: Compressible, normal color flow and augmentation. Popliteal Vein: Compressible, normal augmentation. Deep Reflux: There is no evidence of reflux in the deep system in either the common femoral vein or the popliteal vein. There is no evidence of a Lovett's cyst. 2. SUPERFICIAL ULTRASOUND WITH DOPPLER OF RIGHT LOWER EXTREMITY: GREAT SAPHENOUS VEIN: Saphenofemoral Junction: 0.4 cm; Reflux: 0 ms Proximal Thigh: 0.2 cm; Reflux: 0 ms Mid Thigh: Surgically absent Above Knee: Surgically absent At Knee: Surgically absent Below Knee: 0.2 cm; Reflux: 0 ms Mid Calf: 0.1 cm; Reflux: 0 ms Ankle: 0.2 cm; Reflux: 0 ms DUPLICATED MEDIAL GREAT SAPHENOUS VEIN: Diameter: None Imaged Reflux: NA DUPLICATED LATERAL GREAT SAPHENOUS VEIN: Diameter: 0.2 Reflux: NA SMALL SAPHENOUS VEIN: Proximal: 0.2 cm; Reflux: 0 ms Distal: 0.2 cm; Reflux: 0 ms VEIN OF GIACOMINI: None Imaged. PERFORATORS: Location: Mid calf, GSV Size: 0.1 centimeters Reflux: 0 ms Location: Distal calf, GSV Size: 0.1 cm Reflux: 0 ms Location: Mid calf, GSV Size: 0.5 cm Reflux: Greater than 2916 ms VARICOSITIES: Location: Right great saphenous vein, midcalf Size: 0.3 cm Reflux: Greater than 2948 ms Location: Right great saphenous vein, midcalf Size: 0.3 cm Reflux: Greater than 2436 ms 3. DEEP VENOUS ULTRASOUND OF THE LEFT LOWER EXTREMITY: Common Femoral Vein: Compressible, normal respiratory variation and augmented flow. Femoral Vein: Compressible, normal color flow and augmentation. Popliteal Vein: Compressible, normal augmentation. Deep Reflux: There is no evidence of reflux in the deep system in either the common femoral vein or the popliteal vein. There is no evidence of a Lovett's cyst. 4. SUPERFICIAL ULTRASOUND WITH DOPPLER OF LEFT LOWER EXTREMITY: GREAT SAPHENOUS VEIN: Saphenofemoral Junction: 0.4 cm; Reflux: 0 ms Proximal Thigh: 0.4 cm; Reflux: 0 ms Mid Thigh: 0.2 cm; Reflux: 0 ms Above Knee: 0.2 cm; Reflux: 0 ms At Knee: 0.2 cm; Reflux: 0 ms Below Knee: 0.2 cm; Reflux: 628 ms Mid Calf: 0.1 cm; Reflux: 0 ms Ankle: 0.2 cm; Reflux: 0 ms DUPLICATED MEDIAL GREAT SAPHENOUS VEIN: Diameter: None Imaged Reflux: NA DUPLICATED LATERAL GREAT SAPHENOUS VEIN: Diameter: 0.1 cm Reflux: 0 ms SMALL SAPHENOUS VEIN: Proximal: 0.1 cm; Reflux: 0 ms Distal: 0.06 cm; Reflux: 0 ms VEIN OF GIACOMINI: None Imaged. PERFORATORS: Location: Proximal small saphenous vein Size: 0.2 cm Reflux: 0 ms Location: Mid thigh, GSV Size: 0.2 cm Reflux: 0 ms Location: Distal thigh, GSV Size: 0.08 cm Reflux: 1528 ms Location: GSV at the knee Size: 0.1 cm Reflux: 0 ms Location: GSV, midcalf Size: NA Reflux: Greater than 2948 ms US/US venous duplex LE BI IMPRESSION: 1. Right: Multiple refluxing perforators and varicosities throughout the right great saphenous vein. 2. Left: Multiple refluxing perforators and varicosities throughout the right great saphenous vein. 3. Reflux in the below segment of the left GSV of 628 ms.
== END 2023-12-15 12:58 | disposition home or self-care (01) ==
LOC: HO.US 12:57
PROVIDERS: PCP Internal Medicine; Visit Provider Surgery Vascular Surgery
DX: I83.11 Varicose veins of right lower extremity with inflammation (principal)
CPT/HCPCS: 93970

== ENCOUNTER 2024-01-08 11:09 | Outpatient (AMB) | payer OTHER, SELFPAY ==
--- NOTE | 2024-01-08 11:11 | MHC.OFFVIS ---
Intake Visit Reasons: f/u s/p BL US 12/15/23 Intake Note: Patient presents for follow up s/p 12/15/23 . Patient states he is getting occasional bilateral leg pain , swelling and cramping. Also states his legs have been getting tired and he has to take breaks when ambulating. Patient is diabetic. He also has a section of his right calf that has multiple varicose veins, he says it does not hurt him. Accompanied by: Self / Same As Patient Allergies nickel [NICKEL] Adverse Reaction (Intermediate, Verified 01/08/24 11:13) RASH HPI HPI f/u s/p BL 12/15/23: Details: Very pleasant 58-year-old gentleman presents for evaluation regarding venous disease. He reports that he has some swelling and discomfort in particular the right calf where he has a large cluster varicosities. Of note he did have his right great saphenous vein removed for prior CABG. He has minimal discomfort on his left lower extremities. He reports that he does have some swelling and discomfort over the right leg which has been a source of concern for him. He has used compression with minimal relief. 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 He now presents for follow-up with venous insufficiency testing. [facility] Medical History Ventricular tachyarrhythmia Atherosclerotic cardiovascular disease Mixed hyperlipidemia Minimal depression Screen for colon cancer Colon polyps Microalbuminuria Physical exam Hyperlipidemia HTN (hypertension) Diabetes Surgical History Hx of CABG Hx of eye surgery H/O colonoscopy History of cataract surgery H/O shoulder surgery Family History Father Diabetes HTN (hypertension) Hyperlipidemia Mother Diabetes HTN (hypertension) Hyperlipidemia Social History Household Members: Spouse Housing: Apartment Alcohol intake: never Patient Tobacco Use Status: Former Tobacco user e-Cigarette/Vaping Use: Never Used Second Hand Smoke Exposure: No service: No Current occupational status: employed Current occupational exposures/hazards: No Cognitive needs: No Hearing needs: No Vision needs: Yes Review of Systems Const Reports as per HPI ENT Reports no additional complaints Card Denies chest pain, Denies chest pain at rest and Denies chest pain with activity Resp Denies chest congestion and Denies cough GI Reports no additional complaints Musc Details: pain over varicosities, aching of lower extremities, swelling, cramping, heaviness and tiredness, itching Denies abnormal gait Skin/Breast Reports pruritus and Denies wounds Neuro Reports no additional complaints and Denies abnormal gait Psych Denies no additional complaints Physical Exam Const General: cooperative, healthy appearing and comfortable Orientation/consciousness: oriented to person, oriented to place and oriented to time Neck Carotids: no bruits Chest Chest palpation & inspection: normal inspection of the chest and normal palpation of entire chest wall Resp Effort & Inspection: normal respiratory effort and able to speak in complete sentences Cardio Rate: regular rate Heart sounds: S1 normal heart sound present and S2 normal heart sound present Peripheral pulses: Peripheral pulses 2+ throughout GI Inspection: Yes normal to inspection Skin Other: +2 edema, large rope-like varicosities greater than 4 mm CEAP Classification C4 - skin color changes Ep - Etiology Primary As - superficial veins P - reflux General skin exam: dry skin Neuro General: oriented to person, oriented to place and oriented to time Extrem Right lower extremity: full ROM, normal capillary refill and edema Left lower extremity: full ROM, normal capillary refill and edema Psych Mental Status: mental status grossly normal Results Reviewed Results Reviewed: Brief summary of venous insufficiency testing is as follows: right great saphenous vein: negative right small saphenous vein: negative right accessory vein: none present left great saphenous vein: negative left small saphenous vein: negative left accessory vein: none present Please note there is no evidence of any venous aneurysms or significant tortuosity Assessment & Plan Assessment & Plan (1) Varicose veins of right lower extremity with inflammation: Code(s): I83.11 - Varicose veins of right lower extremity with inflammation Category: Medical Plan: This patient has varicose veins with inflammation. They continue to be a source of discomfort for the patient. The patient has tried conservative treatment with compression, leg elevation and exercise program for over 3 months time. They have been compliant with all treatment. This has provided minimal relief for the patient. I do not anticipate this course of treatment will alter the underlying etiology. The patient has been scheduled for lower extremity venous treatment inclusive of --- right leg microphlebectomy. Risks, benefits, and complications of this procedure has been discussed in detail with the patient including but not limited to bleeding, infection, and the development of a DVT. The patient has demonstrated a clear understanding and has consented. We will schedule the patient as soon as possible. Thank you for allowing us to participate in this patient's care. If there are any questions or concerns please do not hesitate to contact us. Coding Level of Care Code Est Pt Level 4 (61647) Diagnoses Varicose veins of right lower extremity with inflammation I83.11
== END 2024-01-08 11:50 | disposition home or self-care (01) ==
PROVIDERS: PCP Internal Medicine; Visit Provider Surgery Vascular Surgery
DX: I83.11 Varicose veins of right lower extremity with inflammation (principal)
CPT/HCPCS: 99214

== ENCOUNTER → 2024-01-08 11:09 | Outpatient (BNVA) | payer OTHER, SELFPAY | PROVIDERS: PCP Internal Medicine; Visit Provider Surgery Vascular Surgery | DX: I83.11 Varicose veins of right lower extremity with inflammation (principal) | CPT/HCPCS: 99212 ==

== ENCOUNTER 2024-02-20 08:29 | Outpatient (AMB) | payer OTHER, SELFPAY ==
--- NOTE | 2024-02-20 08:33 | MHC.OFFVIS ---
Intake Visit Reasons: Right LE Microphlebectomy Accompanied by: Self / Same As Patient Allergies nickel [NICKEL] Adverse Reaction (Intermediate, Verified 02/20/24 08:34) RASH PFSH Medical History Ventricular tachyarrhythmia Atherosclerotic cardiovascular disease Mixed hyperlipidemia Minimal depression Screen for colon cancer Colon polyps Microalbuminuria Physical exam Hyperlipidemia HTN (hypertension) Diabetes Surgical History Hx of CABG Hx of eye surgery H/O colonoscopy History of cataract surgery H/O shoulder surgery Family History Father Diabetes HTN (hypertension) Hyperlipidemia Mother Diabetes HTN (hypertension) Hyperlipidemia Social History Household Members: Spouse Housing: Apartment Alcohol intake: never Patient Tobacco Use Status: Former Tobacco user e-Cigarette/Vaping Use: Never Used Second Hand Smoke Exposure: No service: No Current occupational status: employed Current occupational exposures/hazards: No Cognitive needs: No Hearing needs: No Vision needs: Yes Office Procedures Vascular Office Procedure Details Details: Diagnosis: Right Leg varicose veins with inflammation Procedure: Right leg Microphlebectomy Anesthesia: Local Infiltration 10 cc, Tumescent: 0 cc. Varicose veins were marked in the standing position on the right leg and the patient was then placed in the supine position. The right lower extremity was prepared and draped to allow knee flexion in the sterile field. The patient had large superficial varicose veins with significant symptoms of pain. It was therefore determined to perform microphlebectomies of the clusters of varicose veins. The patient had bulging varicose veins which were previously marked in the standing position. A small stab incision was made longitudinally directly overlying the varicose vein in the calf and the varicose vein was grasped with a hemostat aided by a vein hook. It was then dissected as far proximally and distally as possible and avulsed. A total of 11 stab incisions were made and the procedure of stab phlebectomies was repeated 11 times. Hemostasis was checked and stab incision sites were closed with steri-strips and sterile dressing was given with gauze and krilex wrap followed by an majo bandage. There were no complications and blood loss was minimal. Post-Op instructions were given and a follow-up appointment was recommended. 60572 - Phleb Veins, Extrem - up to 20 All charges added?: Procedure code (CPT) selection complete Assessment & Plan Assessment & Plan (1) Varicose veins of right lower extremity with inflammation: Comment: 02/20/2024 - right leg microphlebectomy Code(s): I83.11 - Varicose veins of right lower extremity with inflammation Category: Medical Plan: See op note Coding Level of Care Code Procedure Only Diagnoses Varicose veins of right lower extremity with inflammation I83.11 CPT Codes Details - Vascular 5: 06201 - Phleb Veins, Extrem - up to 20 ([id number])
== END 2024-02-20 09:55 | disposition home or self-care (01) ==
PROVIDERS: PCP Internal Medicine; Visit Provider Surgery Vascular Surgery
DX: I83.11 Varicose veins of right lower extremity with inflammation (principal)
CPT/HCPCS: 37765

== ENCOUNTER → 2024-02-20 08:29 | Outpatient (BNVA) | payer OTHER, SELFPAY | PROVIDERS: PCP Internal Medicine; Visit Provider Surgery Vascular Surgery | DX: I83.11 Varicose veins of right lower extremity with inflammation (principal) | CPT/HCPCS: 37765 ==

== ENCOUNTER 2024-03-04 09:48 | Outpatient (AMB) | payer OTHER, SELFPAY ==
--- NOTE | 2024-03-04 09:55 | A.OFFVIS_ITS ---
Intake Visit Reasons: 2 week follow up Right Micro 02/20/24 Intake Note: Patient presents for 2 week follow up right micro. He has a large what appears to be a water blister on his calf that he popped . He noticed it after he unwrapped his bandages. Allergies nickel [NICKEL] Adverse Reaction (Intermediate, Verified 03/04/24 10:00) RASH HPI HPI 2 week follow up Right Micro 02/20/24: Details: Very pleasant 58-year-old gentleman presents for follow-up status post right lower extremity microphlebectomy. Reports that he has done well with the procedure in in general the incisions appear to be healing well. Swelling and discomfort have improved. He now presents for routine postprocedure follow-up [facility], [facility] Medical History Ventricular tachyarrhythmia Atherosclerotic cardiovascular disease Mixed hyperlipidemia Minimal depression Screen for colon cancer Colon polyps Microalbuminuria Physical exam Hyperlipidemia HTN (hypertension) Diabetes Surgical History Hx of CABG Hx of eye surgery H/O colonoscopy History of cataract surgery H/O shoulder surgery Family History Father Diabetes HTN (hypertension) Hyperlipidemia Mother Diabetes HTN (hypertension) Hyperlipidemia Social History Household Members: Spouse Housing: Apartment Alcohol intake: never Patient Tobacco Use Status: Former Tobacco user e-Cigarette/Vaping Use: Never Used Second Hand Smoke Exposure: No service: No Current occupational status: employed Current occupational exposures/hazards: No Cognitive needs: No Hearing needs: No Vision needs: Yes Review of Systems Const All systems reviewed & are unremarkable except as noted in HPI and below Reports no additional complaints ENT Reports Normal hearing present Card Denies chest pain, Denies chest pain at rest, Denies chest pain with activity and Denies pedal edema Resp Denies cough GI Denies abdominal pain Musc Denies abnormal gait, Denies muscle cramps and Denies radiating pain into limb Skin/Breast Denies skin ulcer and Denies wounds Neuro Reports Normal hearing present and Denies abnormal gait Psych Reports no additional complaints Physical Exam Const General: cooperative, healthy appearing and comfortable Orientation/consciousness: oriented to person, oriented to place and oriented to time HEENT Head: Yes normal to inspection Neck Neck: Yes normal visual inspection Carotids: no bruits Chest Chest palpation & inspection: normal inspection of the chest Resp Effort & Inspection: normal respiratory effort and able to speak in complete sentences Auscultation: clear to auscultation bilaterally, no crackles, no rales, no rhonchi and no wheezes Cardio Rate: regular rate Rhythm: regular rhythm Heart sounds: S1 normal heart sound present and S2 normal heart sound present Bruits: no carotid bruits Peripheral pulses: Peripheral pulses 2+ throughout GI Inspection: Yes normal to inspection Skin Wounds: no wounds Hair: normal Neuro General: oriented to person, oriented to place and oriented to time Cranial nerves: Yes CN's II-XII intact bilaterally and Yes Normal hearing present Cognition (Neuro): normal cognition Motor exam (neuro): 5/5 motor strength present throughout Extrem Other: venous exam: No significant superficial varicosities or spider telangiectasias, minimal edema General: No clubbing, No cyanosis and No edema Psych Appearance: grossly normal Mental Status: mental status grossly normal Speech and movement: Normal speech and movement present Assessment & Plan Assessment & Plan (1) Varicose veins of right lower extremity with inflammation: Comment: 02/20/2024 - right leg microphlebectomy Code(s): I83.11 - Varicose veins of right lower extremity with inflammation Category: Medical Plan: The patient has done extremely well with all venous treatments. Patient's may often experience postprocedure phlebitic episodes and I have discussed with the patient use of warm compresses and NSAIDS if tolerated for pain discomfort. In addition, I have discussed continued conservative measures including use of compression, leg elevation, and exercise. The patient was also given an information sheet regarding appropriate use of compression stockings and future purchases. Thank you for allowing us to care for your patient with venous disease. Coding Level of Care Code Est Pt Level 3 (44225) Diagnoses Varicose veins of right lower extremity with inflammation I83.11
== END 2024-03-04 10:19 | disposition home or self-care (01) ==
PROVIDERS: PCP Internal Medicine; Visit Provider Surgery Vascular Surgery
DX: I83.11 Varicose veins of right lower extremity with inflammation (principal)
CPT/HCPCS: 99213

== ENCOUNTER → 2024-03-04 09:48 | Outpatient (BNVA) | payer OTHER, SELFPAY | PROVIDERS: PCP Internal Medicine; Visit Provider Surgery Vascular Surgery | DX: Z48.812 Encounter for surgical aftercare following surgery on the circulatory system (principal); Z98.890 Other specified postprocedural states; Z86.79 Personal history of other diseases of the circulatory system | CPT/HCPCS: 99212 ==

== ENCOUNTER 2024-03-09 08:24 | Outpatient (REF) | payer OTHER, SELFPAY ==
[2024-03-09 10:42] LABS: Creatinine Urine 90.03 mg/dL; Microalbum/Creatinine Ratio Ur 58.8 ug/mg cr (<30)
== END 2024-03-09 08:25 | disposition home or self-care (01) ==
LOC: HO.LAB 08:24
PROVIDERS: PCP Internal Medicine; Visit Provider Internal Medicine
DX: E11.9 Type 2 diabetes mellitus without complications (principal)
CPT/HCPCS: 36415; 80053; 80061; 82043; 82306; 82570

== ENCOUNTER 2024-03-18 10:11 | Outpatient (AMB) | payer OTHER, SELFPAY ==
[2024-03-18 10:21] VITALS: BP 118/72; BMI 23.9
--- NOTE | 2024-03-18 10:21 | MHC.PC.OV ---
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 Required: No Accompanied by: Self / Same As Patient Allergies nickel [NICKEL] Adverse Reaction (Intermediate, Verified 03/18/24 10:50) RASH Medication List - Last Reconciled 03/18/24 by Gabriela Ball MD aspirin 81 mg PO DAILY atorvastatin 80 mg PO BEDTIME blood sugar diagnostic (FreeStyle Lite Strips) Use 1 test strip twice a day blood-glucose meter (FreeStyle Lite Meter kit) As directed blood-glucose sensor (FreeStyle Alvino 3 Sensor device) As directed carvedilol 3.125 mg PO BID empagliflozin (Jardiance) 25 mg PO DAILY 90 days ezetimibe (Zetia) 10 mg PO DAILY lancets (FreeStyle Lancets) Use 1 lancet twice a day metformin 1,000 mg (2 x 500 mg) PO BID 90 days sertraline 25 mg PO DAILY Tobacco use date assessed: 07/16/23 Dental Screening Dental Screen Date: 03/18/24 Did you have a dental visit in the last 12 months?: No Did you have a dental problem in the last 6 months where you did not have access to dental care?: No Was dental information given to patient?: Patient has dentist HPI HPI Comments History of Present Illness Details This is a 58-year-old male with diabetes mellitus type 2, atherosclerotic cardiovascular disease and minimal depression that comes today for follow-up on his conditions. A1c within goal. Denies any chest pain or shortness on breath. Depression stable with SSRIs. Complains of bilateral leg pain and weakness aggravated by activity. [facility] Medical History (Updated 03/18/24 @ 11:36 by Gabriela Ball MD) Ventricular tachyarrhythmia Atherosclerotic cardiovascular disease Mixed hyperlipidemia Minimal depression Screen for colon cancer Colon polyps Microalbuminuria Physical exam Hyperlipidemia HTN (hypertension) Diabetes Surgical History Hx of CABG Hx of eye surgery H/O colonoscopy History of cataract surgery H/O shoulder surgery Family History Father Diabetes HTN (hypertension) Hyperlipidemia Mother Diabetes HTN (hypertension) Hyperlipidemia Social History Household Members: Spouse Housing: Apartment Alcohol intake: never Patient Tobacco Use Status: Former Tobacco user Tobacco use type: Cigarette e-Cigarette/Vaping Use: Never Used Second Hand Smoke Exposure: No service: No Current occupational status: employed Current occupational exposures/hazards: No Cognitive needs: No Hearing needs: No Vision needs: Yes Questionnaire Thrive Questionnaire Date Thrive assessed: 10/15/23 INESSA-7 AMB Questionnaire INESSA-7 Date INESSA - 7 assessed: 10/15/23 Source: Developed by Drs. Julio Fernández, Katherine Celis, Adrian Mcneill and colleagues, with an educational augustine from [employer]. Review of Systems Const All systems reviewed & are unremarkable except as noted in HPI and below Card Denies chest pain at rest, Denies chest pain with activity, Denies edema, Denies irregular heart rhythm, Denies claudication, Denies dyspnea, Denies dyspnea on exertion, Denies orthopnea, Denies paroxysmal nocturnal dyspnea and Denies slow heart rate Resp Denies cough, Denies dyspnea and Denies dyspnea on exertion GI Denies abdominal pain, Denies change in bowel habits, Denies excessive flatus, Denies nausea and Denies vomiting Denies urinary hesitancy, Denies urinary incontinence and Denies urinary urgency Musc Denies abnormal gait, Denies atrophy, Denies deformity and Denies limited range of motion Skin/Breast Denies bleeding lesions, Denies changing lesions and Denies rash Neuro Denies abnormal gait and Denies lack of coordination Physical exam (Primary Care) Vital Signs: Last Vital Signs BP 118/72 03/18/24 10:21 BMI result Body Mass Index 23.9 Tobacco/Smoking Status: Tobacco use Status Tobacco use date assessed 07/16/23 03/18/24 10:28 Patient Tobacco Use Status Former Tobacco user 03/18/24 10:28 Tobacco use type Cigarette 03/18/24 10:28 e-Cigarette/Vaping Use Never Used 03/18/24 10:28 Thrive Assessment: Date of Thrive Assessment Date Thrive assessed 10/15/23 03/18/24 10:28 Resp Effort & Inspection: normal respiratory effort Auscultation: clear to auscultation bilaterally Cardio Jugular venous distension: no JVD Rate: regular rate Rhythm: regular rhythm Heart sounds: S1 normal heart sound present and S2 normal heart sound present Extrem General: Yes full ROM Results AMB Hemoglobin A1c AMB Hemoglobin A1c 6.9 % Last Edit by RUBY Saldivar on 03/18/24 10:31 Results Reviewed Results Reviewed: Laboratory Last Values Hgb A1c (Clinic) 6.9 % (4.0-6.0) H 03/18/24 10:21 Assessment and Plan Assessment & Plan (1) Diabetes: Code(s): E11.9 - Type 2 diabetes mellitus without complications Qualifiers: Diabetes mellitus type: type 2 Diabetes mellitus terminal operations supervisor insulin use: without terminal operations supervisor use Diabetes mellitus complication status: without complication Qualified Code(s): E11.9 - Type 2 diabetes mellitus without complications Plan: Continue Jardiance. A1c goal is equal or less than 7%. (2) Atherosclerotic cardiovascular disease: Code(s): I25.10 - Atherosclerotic heart disease of [place] coronary artery without angina pectoris Plan: Continue aspirin for secondary prophylaxis. (3) Minimal depression: Code(s): F32.A - Depression, unspecified Plan: Continue SSRIs. Orders: Orders AMB Hemoglobin A1c Today E11.9 - Type 2 diabetes mellitus without complications Lipid Panel 4 Months E78.5 - Hyperlipidemia, unspecified Comprehensive [place]. Panel Fast 4 Months G47.00 - Insomnia, unspecified Microalbumin, Random (w Creat) 4 Months E11.9 - Type 2 diabetes mellitus without complications Coding Level of Care Code Est Pt Level 3 (57556) Complex EM visit Add On G2211 Diagnoses Type 2 diabetes mellitus without complication, without long-term current use of insulin E11.9 Diabetes mellitus type: type 2 Diabetes mellitus usp insulin use: without usp use Diabetes mellitus complication status: without complication Atherosclerotic cardiovascular disease I25.10 Minimal depression F32.A Time Spent (min) 19
== END 2024-03-18 11:04 | disposition home or self-care (01) ==
PROVIDERS: PCP Internal Medicine; Visit Provider Internal Medicine
DX: E11.9 Type 2 diabetes mellitus without complications (principal); I25.10 Atherosclerotic heart disease of native coronary artery without angina pectoris; F32.A Depression, unspecified
CPT/HCPCS: 83036; 99213; G2211

== ENCOUNTER 2024-04-20 10:00 | Outpatient (AMB) | payer OTHER, SELFPAY ==
--- NOTE | 2024-04-20 10:02 | MHC.OFFVIS ---
Vital Signs 04/20/24 10:03 Height 5 ft 8 in Weight 162 lb 11.218 oz BMI 24.7 BP 114/60 Blood Pressure Location Lt brachial Position Sitting Pulse 73 Pulse Source Pulse Oximeter Intake Visit Reasons: 6 mth fu Verifying Machine Operator Required: Yes Verifying Machine Operator Name: [id number] Accompanied by: Self / Same As Patient Allergies nickel [NICKEL] Adverse Reaction (Intermediate, Verified 03/18/24 10:50) RASH Medication List - Last Reconciled 04/20/24 by Arden Smith MD aspirin 81 mg PO DAILY atorvastatin 80 mg PO BEDTIME blood sugar diagnostic (FreeStyle Lite Strips) Use 1 test strip twice a day blood-glucose meter (FreeStyle Lite Meter kit) As directed blood-glucose sensor (FreeStyle Alvino 3 Sensor device) As directed carvedilol 3.125 mg PO BID empagliflozin (Jardiance) 25 mg PO DAILY 90 days ezetimibe (Zetia) 10 mg PO DAILY lancets (FreeStyle Lancets) Use 1 lancet twice a day metformin 1,000 mg (2 x 500 mg) PO BID 90 days sertraline 25 mg PO DAILY HPI Comments Details: Dawood returns for follow-up regarding coronary disease. In 2022, he underwent coronary artery bypass surgery. Overall, it seems that he generally getting along okay. No clear-cut chest pains but he probably has sternotomy pains. It has been present since the time of surgery. [facility] Medical History (Updated 04/20/24 @ 10:07 by Tuyet Garcia CMA) Ventricular tachyarrhythmia Atherosclerotic cardiovascular disease Mixed hyperlipidemia Minimal depression Screen for colon cancer Colon polyps Microalbuminuria Physical exam Hyperlipidemia HTN (hypertension) Diabetes Surgical History (Updated 04/20/24 @ 10:07 by Tuyet Garcia CMA) Varicose vein of leg Hx of CABG Hx of eye surgery H/O colonoscopy History of cataract surgery H/O shoulder surgery Family History Father Diabetes HTN (hypertension) Hyperlipidemia Mother Diabetes HTN (hypertension) Hyperlipidemia Social History Household Members: Spouse Housing: Apartment Alcohol intake: never Patient Tobacco Use Status: Former Tobacco user Tobacco use type: Cigarette e-Cigarette/Vaping Use: Never Used Second Hand Smoke Exposure: No service: No Current occupational status: employed Current occupational exposures/hazards: No Cognitive needs: No Hearing needs: No Vision needs: Yes Review of Systems Const Denies chills, Denies fatigue, Denies fever(s), Denies weight gain and Denies weight loss ENT Denies dizziness Card Denies chest pain, Denies leg edema, Denies lightheadedness, Denies palpitations, Denies dyspnea on exertion, Denies orthopnea and Denies other Resp Denies cough and Denies dyspnea on exertion GI Denies hematochezia and Denies change in stool character Musc Denies abnormal gait, Denies muscle weakness, Denies numbness, Denies radiating pain into limb and Denies tingling Neuro Denies abnormal gait, Denies dizziness, Denies numbness and Denies tingling Endo Denies fatigue and Denies palpitations Physical Exam Vital Signs: Last Vital Signs Pulse 73 04/20/24 10:03 BP 114/60 04/20/24 10:03 BMI result Body Mass Index 24.7 Const General: comfortable and no acute distress Orientation/consciousness: patient oriented x3 HEENT Other: Unremarkable Head: Yes normal to inspection Neck Neck: Yes normal visual inspection Chest Chest palpation & inspection: normal inspection of the chest Resp Auscultation: clear to auscultation bilaterally Cardio Palpation: normal PMI Heart sounds: S1 normal heart sound present, S2 normal heart sound present, no gallops, no murmurs and no rubs GI Palpation (GI): Soft to palpation Back/Spine/Pelvis Other: unremarkable Skin General skin exam: no rashes or lesions noted Neuro General: patient oriented x3 Extrem General: Yes normal to inspection Psych Mental Status: mental status grossly normal Assessment & Plan Assessment & Plan (1) Atherosclerotic cardiovascular disease: Code(s): I25.10 - Atherosclerotic heart disease of [place] coronary artery without angina pectoris Category: Medical (2) Status post aorto-coronary artery bypass graft: Code(s): Z95.1 - Presence of aortocoronary bypass graft Category: Surgical (3) Diabetes: Code(s): E11.9 - Type 2 diabetes mellitus without complications Category: Medical Qualifiers: Diabetes mellitus complication status: without complication Diabetes mellitus terminal system operator insulin use: without terminal system operator use Diabetes mellitus type: type 2 Qualified Code(s): E11.9 - Type 2 diabetes mellitus without complications Plan Status post CABG 2022. Post bypass surgery he again had chest pain with ST elevation in anteroseptal leads. This led to another cardiac catheterization, but grafts were patent. There was multivessel disease in his [place] coronaries. Otherwise, stable cardiac status. Continue long-term aspirin. He is on a small dose of beta-blockers and okay to continue that. Continue statins and Zetia. Last LDL cholesterol 97 mg/dL. Still less than ideal but in the past, LDL has been as much as 248 mg/dL. With regard to diabetes, takes Jardiance, metformin. Last hemoglobin A1c is 6.9%. Reasonable. Discussed with patient and significant other. Using machine accountant. Coding Level of Care Code Est Pt Level 4 (76145) Diagnoses Atherosclerotic cardiovascular disease I25.10 Status post aorto-coronary artery bypass graft Z95.1 Type 2 diabetes mellitus without complication, without long-term current use of insulin E11.9 Diabetes mellitus complication status: without complication Diabetes mellitus terminal system operator insulin use: without terminal system operator use Diabetes mellitus type: type 2
[2024-04-20 10:03] VITALS: BP 114/60; PULSE 73; BMI 24.7
== END 2024-04-20 10:38 | disposition home or self-care (01) ==
PROVIDERS: PCP Internal Medicine; Visit Provider Internal Medicine
DX: I25.10 Atherosclerotic heart disease of native coronary artery without angina pectoris (principal); Z95.1 Presence of aortocoronary bypass graft; E11.9 Type 2 diabetes mellitus without complications
CPT/HCPCS: 99214

== ENCOUNTER → 2024-04-20 10:00 | Outpatient (BNVA) | payer OTHER, SELFPAY | PROVIDERS: PCP Internal Medicine; Visit Provider Internal Medicine | DX: I25.10 Atherosclerotic heart disease of native coronary artery without angina pectoris (principal); E11.9 Type 2 diabetes mellitus without complications; Z95.1 Presence of aortocoronary bypass graft | CPT/HCPCS: 99212 ==

== ENCOUNTER 2024-08-09 07:58 | Outpatient (AMB) | payer OTHER, SELFPAY ==
--- NOTE | 2024-08-09 08:04 | MHC.PC.OV ---
Vital Signs 08/09/24 08:08 Height 5 ft 8 in Weight 166 lb BMI 25.2 BP 122/78 Blood Pressure Location Lt brachial Position Sitting Intake Visit Reasons: dm Intake Note: Patient here for a follow up DM Field Crop Farm Worker Required: Yes Field Crop Farm Worker Language: Laborer Wharf Name: Gabriela Ball MD Information Interpreted: non-clinical & clinical Accompanied by: Self / Same As Patient Allergies nickel [NICKEL] Adverse Reaction (Intermediate, Verified 08/09/24 08:13) RASH Medication List - Last Reconciled 08/09/24 by Gabriela Ball MD aspirin 81 mg PO DAILY atorvastatin 80 mg PO BEDTIME blood sugar diagnostic (FreeStyle Lite Strips) Use 1 test strip twice a day blood-glucose meter (FreeStyle Lite Meter kit) As directed blood-glucose sensor (FreeStyle Alvino 3 Sensor device) As directed carvedilol 3.125 mg PO BID empagliflozin (Jardiance) 25 mg PO DAILY 90 days ezetimibe 10 mg PO DAILY lancets (FreeStyle Lancets) Use 1 lancet twice a day metformin 1,000 mg (2 x 500 mg) PO BID 90 days sertraline 25 mg PO DAILY Tobacco use date assessed: 08/09/24 Dental Screening Dental Screen Date: 08/09/24 Did you have a dental visit in the last 12 months?: No Did you have a dental problem in the last 6 months where you did not have access to dental care?: No Was dental information given to patient?: Patient has dentist HPI HPI Comments History of Present Illness Details The patient is a 59-year-old male presenting with poorly controlled diabetes and chest discomfort. His Hemoglobin A1c has increased from 6.9% to 7.5%. He is currently on a regimen including Metformin, Empagliflozin, and other medications for diabetes, hyperlipidemia, and hypertension. The chest discomfort described as bothersome pain is localized to the center of the chest and sometimes radiates, not associated with meals. The patient notes increased activity in warmer months, which correlates with some improvement in symptoms. He denies consistent shortness of breath but has had occasional episodes of chest discomfort lately. A previous history includes a colon polyp identified during a colonoscopy, with a recommended follow-up every five years. The patient stated recent chest symptoms and is concerned about his kidney function due to a relative's advice. [facility] Medical History Ventricular tachyarrhythmia Atherosclerotic cardiovascular disease Mixed hyperlipidemia Minimal depression Screen for colon cancer Colon polyps Microalbuminuria Physical exam Hyperlipidemia HTN (hypertension) Diabetes Surgical History Varicose vein of leg Hx of CABG Hx of eye surgery H/O colonoscopy History of cataract surgery H/O shoulder surgery Family History Father Diabetes HTN (hypertension) Hyperlipidemia Mother Diabetes HTN (hypertension) Hyperlipidemia Social History Household Members: Spouse Housing: Apartment Alcohol intake: never Patient Tobacco Use Status: Former Tobacco user Tobacco use type: Cigarette e-Cigarette/Vaping Use: Never Used Second Hand Smoke Exposure: No service: No Current occupational status: employed Current occupational exposures/hazards: No Cognitive needs: No Hearing needs: No Vision needs: Yes Questionnaire PHQ-9 Over the last 2 weeks, how often have you been bothered by any of the following problems? 1. Little interest or pleasure in doing things: not at all 2. Feeling down, depressed, or hopeless: several days 3. Trouble falling or staying asleep, or sleeping too much: several days 4. Feeling tired or having little energy: several days 5. Poor appetite or overeating: several days 6. Feeling bad about yourself - or that you are a failure or have let yourself or your family down: several days 7. Trouble concentrating on things, such as reading the newspaper or watching television: several days 8. Moving or speaking so slowly that other people could have noticed. Or the opposite - being so fidgety or restless that you have been moving around a lot more than usual: not at all 9. Thoughts that you would be better off or of hurting yourself in some way: several days Total score: 7 Depression Screening Interpretation: Positive Depression Screening Follow-up: Existing condition, In treatment, Community Mental Health Worker F/U and Follow-up Visit Requested Depression Screening Done: Yes 80124 - PHQ-9 Billing: Yes Source: Developed by Drs. Julio LKatherine Pascual Kurt Kroenke and colleagues, with an educational augustine from [employer]. Thrive Questionnaire Date Thrive assessed: 08/09/24 I am a: Patient What is your living situation today?: I have a steady place to live Within the past 12 months, did the food you bought not last and you didn't have the money to get more?: Never true Within the past 12 months, did you worry whether your food would run out before you got money to buy more?: Never true Do you have trouble paying for medicines?: No Do you have trouble getting transportation to medical appointments?: No Do you have trouble paying your heating and electricity bill?: No Do you have trouble taking care of your child, family member or friend?: No Do you have trouble with day-to-day activities such as bathing, preparing meals, shopping, managing finances, etc.?: No Are you currently unemployed and looking for a job?: No Are you interested in more education?: No Please select the resources that you would like help with: None Currently or been in a relationship where the following occur: No concerns reported THRIVE Score: 0 AUDIT C Alcohol Use Questionnaire (AUDIT-C) 1. How often do you have a drink containing alcohol?: Never Total Score: 0 Score Reviewed/Action Taken: No INESSA-7 AMB Questionnaire INESSA-7 Date INESSA - 7 assessed: 08/09/24 Feeling nervous, anxious, or on edge: 1 = Several days Not being able to stop or control worryin = Not at all Worrying too much about different things: 1 = Several days Trouble relaxin = Several days Being so restless that it is hard to sit still: 0 = Not at all Becoming easily annoyed or irritable: 1 = Several days Feeling afraid as if something awful might happen: 1 = Several days Total INESSA-7 score (0-4 normal; 5-9 mild; 10-14 moderate; 15-21 severe): 5 Source: Developed by Drs. Julio Fernández, Adrian Flores and colleagues, with an educational augustine from [employer]. INESSA-7 Assessment Billing INESSA-7 Assessment Tool: INESSA-7 Assessment 53664 Review of Systems Const All systems reviewed & are unremarkable except as noted in HPI and below Card Reports chest pain at rest, Denies chest pain with activity, Denies edema, Denies irregular heart rhythm, Denies claudication, Reports dyspnea, Denies dyspnea on exertion, Denies orthopnea, Denies paroxysmal nocturnal dyspnea and Denies slow heart rate Resp Denies cough, Reports dyspnea and Denies dyspnea on exertion Neuro Denies lack of coordination Physical exam (Primary Care) Vital Signs: Last Vital Signs BP 122/78 08/09/24 08:08 BMI result Body Mass Index 25.2 Tobacco/Smoking Status: Tobacco use Status Tobacco use date assessed 08/09/24 08/09/24 08:13 Patient Tobacco Use Status Former Tobacco user 08/09/24 08:06 Tobacco use type Cigarette 08/09/24 08:06 e-Cigarette/Vaping Use Never Used 08/09/24 08:06 PHQ-9: PHQ-9 Score PHQ-9: Total score 7 08/09/24 08:13 Depression Screening Interpretation: Positive Depression Screening Follow-up: Existing condition, In treatment, Community Mental Health Worker F/U and Follow-up Visit Requested Thrive Assessment: Date of Thrive Assessment Date Thrive assessed 08/09/24 08/09/24 08:13 Currently or been in a relationship where the following occur: No concerns reported Resp Effort & Inspection: normal respiratory effort Auscultation: clear to auscultation bilaterally Cardio Jugular venous distension: no JVD Rate: regular rate Rhythm: regular rhythm Heart sounds: S1 normal heart sound present and S2 normal heart sound present Extrem General: Yes full ROM Psych Appearance: grossly normal Office Procedures Flu Questionnaire Does the patient have a severe egg allergy?: No Results AMB Hemoglobin A1c AMB Hemoglobin A1c 7.5 % Last Edit by RUBY Saldivar on 08/09/24 08:17 Immunizations Fluarix Triv [id number] (PF) 45 mcg (15 mcg x 3)/0.5 mL IM syringe Performing Provider: Gabriela Ball MD [facility] [place] [facility] Documented (not given) by: RUBY Saldivar on 08/09/24 08:13 Reason Not Given: Patient Refused Coding Level of Care Code Est Pt Level 4 (89131) Complex EM visit Add On G2211 Diagnoses Type 2 diabetes mellitus without complication, without long-term current use of insulin E11.9 Diabetes mellitus type: type 2 Diabetes mellitus exterminator termite insulin use: without prison use Diabetes mellitus complication status: without complication Primary hypertension I10 Hypertension type: primary hypertension Other hyperlipidemia E78.49 Hyperlipidemia type: other hyperlipidemia Epigastric pain R10.13 Costovertebral angle tenderness M54.9 Additional Codes PHQ-9 - 98222 - PHQ-9 Billing: Yes ([id number]) INESSA-7 Assessment Billing - INESSA-7 Assessment Tool: INESSA-7 Assessment 31883 ([id number]) Time Spent (min) 23 Assessment & Plan Assessment & Plan (1) Diabetes: Code(s): E11.9 - Type 2 diabetes mellitus without complications Category: Medical Qualifiers: Diabetes mellitus type: type 2 Diabetes mellitus exterminator termite insulin use: without prison use Diabetes mellitus complication status: without complication Qualified Code(s): E11.9 - Type 2 diabetes mellitus without complications (2) HTN (hypertension): Code(s): I10 - Essential (primary) hypertension Category: Medical Qualifiers: Hypertension type: primary hypertension Qualified Code(s): I10 - Essential (primary) hypertension (3) Hyperlipidemia: Code(s): E78.5 - Hyperlipidemia, unspecified Category: Medical Qualifiers: Hyperlipidemia type: other hyperlipidemia Qualified Code(s): E78.49 - Other hyperlipidemia (4) Epigastric pain: Code(s): R10.13 - Epigastric pain Category: Medical (5) Costovertebral angle tenderness: Code(s): M54.9 - Dorsalgia, unspecified Category: Medical Plan - Reinforce lifestyle modifications, including diet and exercise optimization. - XR KUB ordered to rule out kidney stone. - LDL goal is less than 70. - Start glimepiride to reach A1c goal less than 7 %. - Keep BP within goal been less than 130/80. - Upper GI series ordered to rule out epigasrium disorder. Patient was informed and verbally consented to the use of an ambient scribe for clinic note documentation during this visit. I discussed with the patient the importance of controlling his blood glucose levels and the implications of elevated Hemoglobin A1c. We outlined the potential need for medication adjustments and the necessity of routine glucose monitoring. The patient was advised on the risks associated with hyperlipidemia and the benefits of achieving LDL targets, recommending further lab tests to ascertain lipid levels and kidney function. We discussed the need for additional diagnostic imaging regarding his chest discomfort and the rationale behind suspecting potential cardiac or esophageal problems. I encouraged the scheduled colonoscopy due to his history of polyps, despite delays caused by COVID-19. In terms of mental health, I highlighted the stability of the patient?s mood with current antidepressant therapy and recommended continued engagement with counseling for consistent support. I assured the patient of ongoing evaluation to optimize health management in all areas. Orders: Orders Microalbumin, Random (w Creat) Today R80.9 - Proteinuria, unspecified Comprehensive [place]. Panel Fast Today E11.9 - Type 2 diabetes mellitus without complications Vitamin D 25-OH Total Today E55.9 - Vitamin D deficiency, unspecified AMB Hemoglobin A1c Today E11.9 - Type 2 diabetes mellitus without complications Influenza [id number] Immunization Today Z23 - Encounter for immunization Lipid Panel Today E78.5 - Hyperlipidemia, unspecified XR KUB Today M54.9 - Dorsalgia, unspecified [place] upper GI series Today R10.13 - Epigastric pain Referrals Open Access Screening Colonoscopy Referral Z12.12 - Encounter for screening for malignant neoplasm of rectum Medications: New glimepiride 2 mg PO DAILY 90 days 90 tabs 1RF Refilled empagliflozin (Jardiance) 25 mg PO DAILY 90 days 90 tabs 1RF metformin 1,000 mg (2 x 500 mg) PO BID 90 days 360 tabs 1RF aspirin 81 mg PO DAILY 90 tabs 3RF atorvastatin 80 mg PO BEDTIME 90 tabs 1RF Patient Instructions: - Continue current diabetes and hypertension medications as prescribed. - Monitor blood sugar levels regularly, aiming for an HbA1c target as previously discussed. - Maintain active communication with your manager school and report any new or worsening chest symptoms. - Attend scheduled lab work for lipid profile and kidney function evaluation. - Proceed with the planned colonoscopy and follow-up visit for results discussion. - Stay active through exercises that are manageable in colder months and maintain a heart-healthy diet. - Stick to your mental health support plan, including appointments with your counselor. - Call the clinic promptly if you experience severe chest pain, difficulty breathing, or other acute symptoms.
--- OUTSIDE RECORDS SUMMARY | 2024-08-09 08:04 | XMS_ITS | Clinical Summary ---
Author Organization [facility] Facility Address [address] [place] [id number] Care Team Providers Care Mainspring Strip Inspector Name Role Phone Gabriela Shelby MD Primary Care Provider [phone] Allergies No known active allergies Medications sildenafil (VIAGRA) 25 MG tablet Take 1 tablet by mouth 1 (one) time each day Active metFORMIN (GLUCOPHAGE) 500 MG tablet Take 1 tablet by mouth in the morning and 1 tablet in the evening. Active atorvastatin (LIPITOR) 10 MG tablet Take 1 tablet by mouth 1 (one) time each day Active ketorolac (ACULAR) 0.5 % ophthalmic solution Administer 0.5 drops into the left eye if needed 2 Active pioglitazone (ACTOS) 30 MG tablet TAKE 1 TABLET BY MOUTH EVERY DAY FOR 90 DAYS 2 Active Active Problems Problem Noted Date Diagnosed Date Renal disorder due to type 2 diabetes mellitus 0 11/07/2021 Proteinuria 11/07/2021 Resolved Problems Problem Noted Date Diagnosed Date Resolved Date Essential hypertension 11/07/202112/12 Chronic kidney disease stage 1 11/07/2021 12/12/2021 Family History Medical History Relation Comments Diabetes Mother Heart disease Mother Relation Status Comments Mother Social History Tobacco Use Types Packs/Day Years Used Date Smoking Tobacco: Former Cigarettes Q uit: 07/14/1972 Comments:Smoking History Inf o:Every day Alcohol Use Standard Drinks/Week Comments No 0 (1 standard drink = 0.6 oz pur e alcohol) Sex and Gender Information Value Date Recorded Sex Assigned at Not on file Legal Sex Male 4:44 PM EST Gender Identity Not on file Sexual Orientation Not on file Last Filed Vital Signs Vital Sign Reading Time Taken Comments Blood Pressure 130/80 12/12/2021 3:35 PM EDT Pulse 75 12/12/2021 3:35 PM EDT Temperature - - Respiratory Rate - - Oxygen Saturation - - Inhaled Oxygen Concentration - - Weight 78.7 kg (173 lb 6.4 oz) 12/12/2021 3:35 P M EDT Height - - Body Mass Index - - Plan of Treatment Health Maintenance Due Date Last Done Comments Pneumococcal Vaccine: Pediat rics (0 to 5 Years) and At-Risk Patients (6 to 64 Years) (1 of 2 - PCV) 1970 Colorectal Cancer Screening: Annual FOBT 2013 Colorectal Cancer Screening: Colonoscopy 2013 Colorectal Cancer Screening: Sigmoidoscopy 2013 Diabetes: Hemoglobin A1C 08/13/2020 Diabetes: Ophthalmology Exam 08/13/2020 Diabetes: Pedal Pulse Checked 08/13/2020 Diabetes: Sensory Foot Exam 08/13/2020 Diabetes: Visual Foot Exam 08/13/2020 Influenza Vaccine (#1) 2024 Hepatitis B Vaccine Aged Out No longe r eligible based on patient's age to complete this topic Insurance [facility] [place] [employer] Care Teams Mainspring Strip Inspector Relationship Specialty Start Date End Date Gabriela Shelby MD [address] [place], [place] PCP - General Internal Medicine 11/01/21
--- OUTSIDE RECORDS SUMMARY | 2024-08-09 08:04 | XMS_ITS | Encounter Summary ---
Author Organization [employer] Address [address] [facility] [address] [place] [address] Care Team Providers Care Judge Clerk Name Role Phone Unavailable Primary Care Provider Unavailabl e Encounter Details Date Type Department Care Team (Latest Contact Info) Description 01/12/2019 Abstract [facility] CONVERSIONS Dental, Provider, DDS Social History Tobacco Use Types Packs/Day Years Used Date Smoking Tobacco: Never Assessed Sex and Gender Information Value Date Recorded Sex Assigned at Male 05/13/2022 10:24 AM EDT Legal Sex Male 10:24 AM EDT Gender Identity Not on file Sexual Orientation Not on file documented as of this encounter Plan of Treatment Not on file documented as of this encounter Visit Diagnoses Not on filedocumented in this encounter
--- OUTSIDE RECORDS SUMMARY | 2024-08-09 08:04 | XMS_ITS | Clinical Summary ---
Author Organization [employer] Address [address] [address] [place] [address] Care Team Providers Care Automation And Controls Supervisor Name Role Phone Unavailable Primary Care Provider Unavailabl e Social History Tobacco Use Types Packs/Day Years Used Date Smoking Tobacco: Never Assessed Sex and Gender Information Value Date Recorded Sex Assigned at Male 05/13/2022 10:24 AM EDT Legal Sex Male 10:24 AM EDT Gender Identity Not on file Sexual Orientation Not on file Plan of Treatment Health Maintenance Due Date Last Done Comments CT Colonography 1964 Colonoscopy 1964 Colorectal Cancer Screening 1964 Depression Screening 1964 FIT DNA/Cologuard 1964 FIT 1964 FOBT 1964 Lipid Panel 1964 Sigmoidoscopy 1964 Alcohol/Substance Use Screening 1976 Tobacco Screening 1976 DTaP/Tdap/Td Vaccines (1 - Tdap) 1983 Zoster Vaccines (1 of 2) 2014 COVID-19 Vaccine ( - 2023-2 5 season) 2024 Influenza Vaccine (#1) 2024 RSV Patients and Pa tients Aged 60 years or older (1 - 1-dose 75+ series) 2039 HIB Vaccines Aged Out No longer eligi ble based on patient's age to complete this topic HPV Vaccines Aged Out No longer eligi ble based on patient's age to complete this topic Hepatitis A Vaccines Aged Out No long er eligible based on patient's age to complete this topic Hepatitis B Vaccines Aged Out No long er eligible based on patient's age to complete this topic IPV Vaccines Aged Out No longer eligi ble based on patient's age to complete this topic Meningococcal Vaccine Aged Out No [place] abdulaziz eligible based on patient's age to complete this topic Pneumococcal Vaccine: Pediat rics (0 to 5 Years) and At-Risk Patients (6 to 64 Years) Aged Out No longer eligible b ased on patient's age to complete this topic RSV under 20 months Aged Out No longe r eligible based on patient's age to complete this topic Rotavirus Vaccines Aged Out No longer eligible based on patient's age to complete this topic
[2024-08-09 08:08] VITALS: BP 122/78; BMI 25.2
== END 2024-08-09 08:27 | disposition home or self-care (01) ==
PROVIDERS: PCP Internal Medicine; Visit Provider Internal Medicine
DX: E11.9 Type 2 diabetes mellitus without complications (principal); I10 Essential (primary) hypertension; E78.49 Other hyperlipidemia; R10.13 Epigastric pain; M54.9 Dorsalgia, unspecified; Z23 Encounter for immunization

== ENCOUNTER 2024-08-09 07:58 | Outpatient (REF) | payer OTHER, SELFPAY ==
--- NOTE | ~2024-08-09 | XR_ITS ---
EXAMINATION: XR ABDOMEN KUB CLINICAL INDICATION: COSTOVERTEBRAL ANGLE TENDERNESS COMPARISON: None available. TECHNIQUE: AP view of the abdomen. FINDINGS: There is a large amount of stool in colon without distention. There is no radiopaque calculi. There is no organomegaly. There is mild spondylosis seen throughout lumbar spine. No aggressive lytic or sclerotic process seen. SI joints are symmetrical and normal. XR/XR KUB IMPRESSION: Moderate constipation. No acute process seen. Electronically signed by: Nelson Valdez MD 08/09/2024 10:14 AM TRIPP LANGE
[2024-08-09 10:03] LABS: Creatinine Urine 79.29 mg/dL; Microalbum/Creatinine Ratio Ur 122.3 ug/mg cr (<30)
[2024-08-09 10:16] LABS: Alanine Aminotransferase 26 U/L (0-40); Albumin Level 4.4 g/dL (3.5-5.0); Alkaline Phosphatase 67 U/L (39-117); Anion Gap 10 (12-20); Aspartate Amino Transferase 20 U/L (5-37); Bilirubin Total 0.5 mg/dL (0.0-1.0); Blood Urea Nitrogen 17 mg/dL (9-16); Calcium 9.1 mg/dL (8.4-10.2); Carbon Dioxide 25 mmol/L (22-29); Chloride 110 mmol/L (96-108); Cholesterol 113 mg/dL (<200); Estimated Glomerular Filt Rate > 60; Glucose Fasting 123 mg/dL (60-99); HDL Cholesterol 44 mg/dL (>40); LDL Cholesterol Calculated 54 mg/dL (<100); Potassium 4.2 mmol/L (3.3-5.1); Sodium 141 mmol/L (135-145); Total Protein 7.5 g/dL (6.5-8.0); Triglycerides 79 mg/dL (<150)
[2024-08-09 10:34] LABS: Vitamin D 25-OH Total 25.4 ng/mL (>30)
--- OUTSIDE RECORDS SUMMARY | 2024-08-09 12:47 | XMS_ITS | Clinical Summary ---
Author Organization [employer] Address [address] [facility] [address] [place] [address] Care Team Providers Care Family Court Justice Name Role Phone Unavailable Primary Care Provider [...]
--- OUTSIDE RECORDS SUMMARY | 2024-08-09 12:47 | XMS_ITS | Encounter Summary ---
Author Organization [employer] Address [address] [facility] [address] [place] [address] Care Team Providers Care Application Integrator Name Role Phone Unavailable Primary Care Provider Unavailabl e Encounter Details Date Type Department Care Team (Latest Contact Info) Description 01/12/2019 Abstract [facility] CONVERSIONS Dental, Provider, DDS Social History Tobacco [...]
--- OUTSIDE RECORDS SUMMARY | 2024-08-09 12:47 | XMS_ITS | Clinical Summary ---
Author Organization [facility] Facility Address [address] [place] [id number] Care Team Providers Care Surgical Territory Manager Name Role Phone Gabriela Shelby MD Primary Care Provider [phone] Allergies No known active allergies Medications sildenafil [...] patient's age to complete this topic Insurance [facility] Care Teams Surgical Territory Manager Relationship Specialty Start Date End Date Gabriela Shelby MD [address] [place], [place] PCP - General Internal Medicine 11/01/21
== END 2024-08-09 07:59 | disposition home or self-care (01) ==
LOC: HO.XRAY 07:58
PROVIDERS: PCP Internal Medicine; Visit Provider Internal Medicine
DX: E11.9 Type 2 diabetes mellitus without complications (principal); I10 Essential (primary) hypertension; E78.5 Hyperlipidemia, unspecified; R10.13 Epigastric pain; M54.9 Dorsalgia, unspecified; Z79.84 Long term (current) use of oral hypoglycemic drugs; R80.9 Proteinuria, unspecified; E55.9 Vitamin D deficiency, unspecified; Z28.21 Immunization not carried out because of patient refusal
CPT/HCPCS: 36415; 74018; 80053; 80061; 82043; 82306; 82570; 83036; 90471; 96127; 99212

== ENCOUNTER → 2024-08-09 09:10 | Outpatient (BNV) | payer OTHER, SELFPAY | PROVIDERS: PCP Internal Medicine; Visit Provider Radiology Diagnostic Radiology | DX: K59.00 Constipation, unspecified (principal) | CPT/HCPCS: 74018 ==

== ENCOUNTER 2024-10-21 14:05 | Outpatient (AMB) | payer OTHER, SELFPAY ==
--- NOTE | 2024-10-21 14:09 | A.OFFVIS_ITS ---
Vital Signs 10/21/24 14:10 Height 5 ft 8 in Weight 176 lb 5.917 oz BMI 26.8 BP 134/62 Blood Pressure Location Lt brachial Position Sitting Pulse 73 Pulse Source Monitor Intake Visit Reasons: 6 mth f/up Seismograph Chief Required: Yes Seismograph Chief Language: Circle Cutting Saw Operator Name: [id number] Accompanied by: Self / Same As Patient Allergies nickel [NICKEL] Adverse Reaction (Intermediate, Verified 08/09/24 08:13) RASH Medication List - Last Reconciled 10/21/24 by Arden Smith MD aspirin 81 mg PO DAILY atorvastatin 80 mg PO BEDTIME blood sugar diagnostic (FreeStyle Lite Strips) Use 1 test strip twice a day blood-glucose meter (FreeStyle Lite Meter kit) As directed blood-glucose sensor (FreeStyle Alvino 3 Sensor device) As directed carvedilol 3.125 mg PO BID empagliflozin (Jardiance) 25 mg PO DAILY 90 days ezetimibe 10 mg PO DAILY glimepiride 2 mg PO DAILY 90 days lancets (FreeStyle Lancets) Use 1 lancet twice a day metformin 1,000 mg (2 x 500 mg) PO BID 90 days sertraline 25 mg PO DAILY HPI Comments Details: Dawood returns for follow-up regarding coronary disease. In 2022, he underwent coronary artery bypass surgery. He describes pains at different times in his chest. Sometimes it happens when he is lifting weights. Sometimes when he is walking. Possibly they are just sternotomy pains. Less likely anginal but cannot exclude either. He also complaints of some shortness of breath with exertion. Has had one nosebleed episode, possibly related to aspirin. Not recurrent. [facility] Medical History Ventricular tachyarrhythmia Atherosclerotic cardiovascular disease Mixed hyperlipidemia Minimal depression Screen for colon cancer Colon polyps Microalbuminuria Physical exam Hyperlipidemia HTN (hypertension) Diabetes Surgical History Varicose vein of leg Hx of CABG Hx of eye surgery H/O colonoscopy History of cataract surgery H/O shoulder surgery Family History Father Diabetes HTN (hypertension) Hyperlipidemia Mother Diabetes HTN (hypertension) Hyperlipidemia Social History Household Members: Spouse Housing: Apartment Alcohol intake: never Patient Tobacco Use Status: Former Tobacco user Tobacco use type: Cigarette e-Cigarette/Vaping Use: Never Used Second Hand Smoke Exposure: No service: No Current occupational status: employed Current occupational exposures/hazards: No Cognitive needs: No Hearing needs: No Vision needs: Yes Review of Systems Const Denies chills, Reports fatigue, Denies fever(s), Denies frequent falls, Reports weakness, Denies weight gain and Denies weight loss ENT Denies dizziness Card Reports chest pain, Reports leg edema, Denies lightheadedness, Reports palpitations, Reports dyspnea and Reports dyspnea on exertion Resp Denies cough, Reports dyspnea and Reports dyspnea on exertion GI Denies hematochezia Musc Denies abnormal gait, Denies muscle weakness, Denies numbness, Denies radiating pain into limb and Denies tingling Neuro Denies abnormal gait, Denies dizziness, Denies frequent falls, Denies numbness, Denies tingling and Reports weakness Endo Reports fatigue and Reports palpitations Physical Exam Vital Signs: Last Vital Signs Pulse 73 10/21/24 14:10 BP 134/62 10/21/24 14:10 BMI result Body Mass Index 26.8 Const General: comfortable and no acute distress Orientation/consciousness: patient oriented x3 HEENT Other: Unremarkable Head: Yes normal to inspection Neck Neck: Yes normal visual inspection Chest Chest palpation & inspection: normal inspection of the chest Resp Auscultation: clear to auscultation bilaterally Cardio Palpation: normal PMI Heart sounds: S1 normal heart sound present, S2 normal heart sound present, no gallops, no murmurs and no rubs GI Palpation (GI): Soft to palpation Back/Spine/Pelvis Other: unremarkable Skin General skin exam: no rashes or lesions noted Neuro General: patient oriented x3 Extrem General: Yes normal to inspection Psych Mental Status: mental status grossly normal Office Procedures EKG Details: EKG with underlying sinus rhythm at 73/Min; old anterior infarct; [place] [address]-Zqrclcekskolyotda, Complete Assessment & Plan Assessment & Plan (1) Atherosclerotic cardiovascular disease: Code(s): I25.10 - Atherosclerotic heart disease of belkofski coronary artery without angina pectoris Category: Medical (2) Status post aorto-coronary artery bypass graft: Code(s): Z95.1 - Presence of aortocoronary bypass graft Category: Surgical (3) Diabetes: Code(s): E11.9 - Type 2 diabetes mellitus without complications Category: Medical Qualifiers: Diabetes mellitus complication status: without complication Diabetes mellitus senior care insulin use: without senior care use Diabetes mellitus type: type 2 Qualified Code(s): E11.9 - Type 2 diabetes mellitus without complications Plan Status post CABG 2022. Post bypass surgery he again had chest pain with ST elevation in anteroseptal leads. This led to another cardiac catheterization, but grafts were patent. There was multivessel disease in his belkofski coronaries. With regard to chest pains, could be just sternotomy pains. We will schedule the exercise stress perfusion imaging for further evaluation. With regard to the shortness of breath, obtain echocardiogram. With regard to medications, continue aspirin, beta-blockers, statins, Zetia. Add long-acting nitrates and use sublingual nitroglycerin as needed. With regard to diabetes, takes Jardiance, metformin, glimepiride. Last hemoglobin A1c is 7.5%. Reasonable. During the consultation, I discussed the potential causes of chest pain, highlighting the need for further cardiovascular testing, including a stress test and echocardiogram, to distinguish between cardiac and muscular causes. I informed the patient about the use of nitroglycerin to mitigate chest pain and considered an additional daily medication for chronic management. The potential for nosebleeds with blood thinners was addressed, emphasizing careful monitoring. I advised the patient that should these symptoms escalate, emergency evaluation would be necessary. Consenting to the proposed plan and understanding of the necessity for tests and potential risks were confirmed with the patient. Orders: Orders CA stress test Today I25.10 - Atherosclerotic heart disease of belkofski coronary artery without angina pectoris, R07.2 - Precordial pain NM cardiolite stress test Today I25.10 - Atherosclerotic heart disease of belkofski coronary artery without angina pectoris, R07.2 - Precordial pain CA echo transthoracic complete Today I25.10 - Atherosclerotic heart disease of belkofski coronary artery without angina pectoris Medications: New nitroglycerin do not exceed 3 doses per episode 0.4 mg sublingual Q5M PRN 30 tabs 5RF chest pain R07.2 - Precordial pain isosorbide mononitrate ER 30 mg PO DAILY 90 tabs 1RF I25.10 - Atherosclerotic heart disease of belkofski coronary artery without angina pectoris Patient Instructions: - Undergo a scheduled heart ultrasound and stress test as advised. - Take nitroglycerin sublingually for chest pain relief when needed. - Limit exercise to light activities and avoid exertion that exacerbates symptoms. - Be cautious with aspirin and notify healthcare providers of any increased nosebleeds. - Seek emergency medical care if chest pain persists or worsens. - Follow up as scheduled for further evaluation and management. Coding Level of Care Code Est Pt Level 4 (73425) Complex EM visit Add On G2211 Diagnoses Atherosclerotic cardiovascular disease I25.10 Status post aorto-coronary artery bypass graft Z95.1 Type 2 diabetes mellitus without complication, without long-term current use of insulin E11.9 Diabetes mellitus complication status: without complication Diabetes mellitus senior care insulin use: without long wall shear operator use Diabetes mellitus type: type 2 CPT Codes EKG - CPT: 67979-[id number], Complete ([id number])
[2024-10-21 14:10] VITALS: BP 134/62; PULSE 73; BMI 26.8
--- OUTSIDE RECORDS SUMMARY | 2024-10-21 16:53 | XMS_ITS | Clinical Summary ---
Author Organization [facility] Facility Address [address] [place] [id number] Care Team Providers Care Hoop Bending Machine Operator Name Role Phone Gabriela Shelby MD Primary Care Provider [phone] Allergies No known active allergies Medications sildenafil [...] Due Date Last Done Comments Pneumococcal Vaccine: Peds ( 0 to 5 Years) and At-Risk Patients (6 to 49 Years) (1 of 2 - PCV) 1970 Colorectal Cancer Screening: Annual FOBT 2013 Colorectal Cancer Screening: Colonoscopy 2013 Colorectal Cancer Screening: Sigmoidoscopy 2013 Diabetes: Hemoglobin A1C 08/13/2020 Diabetes: Ophthalmology Exam 08/13/2020 Diabetes: Pedal Pulse Checked 08/13/2020 Diabetes: Sensory Foot Exam 08/13/2020 Diabetes: Visual Foot Exam 08/13/2020 Influenza Vaccine (Season Ended) 2025 Hepatitis B Vaccine Aged Out No longe r eligible based on patient's age to complete this topic Insurance [facility] Care Teams Hoop Bending Machine Operator Relationship Specialty Start Date End Date Gabriela Shelby MD [address] [place], [place] PCP - General Internal Medicine 11/01/21
--- OUTSIDE RECORDS SUMMARY | 2024-10-21 16:53 | XMS_ITS | Clinical Summary ---
Author Organization [employer] Address [address] [place] [address] Care Team Providers Care Waste Chopper Name Role Phone Unavailable Primary Care Provider [...] 1976 DTaP/Tdap/Td Vaccines (1 - Tdap) 1983 Pneumococcal Vaccine: 50+ Ye ars (1 of 1 - PCV) 2014 Zoster Vaccines (1 of 2) 2014 COVID-19 Vaccine (1 - 2023-2 5 season) 2024 Influenza Vaccine [...] 5 Years) and At-Risk Patients (6 to 49) Years) Aged Out No longer eligible b ased on patient's age to complete this topic RSV under 20 months Aged Out No longe r eligible based on patient's age to complete this topic Rotavirus Vaccines Aged Out No longer eligible based on patient's age to complete this topic
--- OUTSIDE RECORDS SUMMARY | 2024-10-21 16:53 | XMS_ITS | Encounter Summary ---
Author Organization [employer] Address [address] [facility] [address] [place] [address] Care Team Providers Care Writing Center Director Name Role Phone Unavailable Primary Care Provider Unavailabl e Encounter Details Date Type Department Care Team (Latest Contact Info) Description 01/12/2019 Abstract [facility] CONVERSIONS Dental, Provider, DDS Social History [...]
== END 2024-10-21 14:38 | disposition home or self-care (01) ==
LOC: HO.HCS 14:05
PROVIDERS: PCP Internal Medicine; Visit Provider Internal Medicine
DX: I25.10 Atherosclerotic heart disease of native coronary artery without angina pectoris (principal); Z95.1 Presence of aortocoronary bypass graft; E11.9 Type 2 diabetes mellitus without complications
CPT/HCPCS: 93010; 99214; G2211

== ENCOUNTER → 2024-10-21 14:05 | Outpatient (BNVA) | payer OTHER, SELFPAY | PROVIDERS: PCP Internal Medicine; Visit Provider Internal Medicine | DX: I25.10 Atherosclerotic heart disease of native coronary artery without angina pectoris (principal); R07.2 Precordial pain; E11.9 Type 2 diabetes mellitus without complications; Z95.1 Presence of aortocoronary bypass graft | CPT/HCPCS: 93005; 99212 ==

== ENCOUNTER 2024-10-26 08:53 | Outpatient (REF) | payer OTHER, SELFPAY ==
--- NOTE | ~2024-10-26 | FL_ITS ---
EXAMINATION: XR FLUOROSCOPY UPPER GI SERIES CLINICAL INFORMATION: Epigastric pain, GERD. COMPARISON: None TECHNIQUE: Fluoroscopic air contrast upper GI examination was performed utilizing standard techniques with thin and thick barium and effervescent granules. Numerous spot images were obtained. Several fluoroscopic image hold cine sequences were also obtained. FINDINGS: UPPER GI SERIES: Lateral cine images of the oropharynx and hypopharynx demonstrate normal swallow mechanism with normal epiglottic inversion and soft palate elevation. No laryngeal penetration, glottic or subglottic aspiration identified. No nasopharyngeal reflux present. Hypopharyngeal structures appear normal without evidence of mass or diverticulum. There was no significant cricopharyngeal achalasia. Dual and single contrast images of the esophagus demonstrate normal caliber and contour. No evidence of stricture, mass, or ulcerations identified. Esophageal peristalsis was normal. Very small type I hiatus hernia. There was moderate gastroesophageal reflux identified to the level of the thoracic inlet. Dual contrast and single contrast images of the stomach demonstrated normal contour and rugal fold pattern. Diffuse prominence and mild thickening of the area gastricae. No evidence of mass or gross ulcer. Contrast freely passed into the gastric antrum and duodenal bulb without delay. Single and air-contrast images of the duodenal bulb demonstrate no abnormality. The duodenal sweep has a normal appearance, course, and mucosal fold appearance. There are sternal wires in place from prior CABG. FLUOROSCOPY TIME: 2 minutes, 3 seconds Number of Spot Images:11 Number of cines obtained: 16 DOSE AREA PRODUCT: [id number] uGy-m2 (microgray-meter squared) FL/FL upper GI w air IMPRESSION: 1. Granular appearance to the esophageal mucosa, suspicious for mild esophagitis. 2. Moderate gastroesophageal reflux seen to the level of the thoracic inlet. 3. Diffuse thickening of the areae gastricae of the stomach suggesting gastritis. 4. Small type I hiatus hernia. 5. Given above findings, recommend correlation with EGD. Electronically signed by: Chandler Grimes MD 10/26/2024 11:06 AM EDT
--- OUTSIDE RECORDS SUMMARY | 2024-10-26 09:21 | XMS_ITS | Clinical Summary ---
Author Organization [employer] Address [address] [facility] [address] [place] [address] Care Team Providers Care Dormitory Counselor Name Role Phone Unavailable Primary Care Provider [...]
--- OUTSIDE RECORDS SUMMARY | 2024-10-26 09:21 | XMS_ITS | Clinical Summary ---
Author Organization [facility] Facility Address [address] [place] [address] Care Team Providers Care Vacuum Cleaner Repair Person Name Role Phone Gabriela Shelby MD Primary Care Provider [phone] Allergies No known active allergies Medications sildenafil [...] Due Date Last Done Comments Pneumococcal Vaccine: 50+ Ye ars (1 of 2 - PCV) 1983 Colorectal Cancer Screening: Annual FOBT 2013 Colorectal Cancer Screening: Colonoscopy 2013 Colorectal Cancer Screening: Sigmoidoscopy 2013 Diabetes: Hemoglobin A1C 08/13/2020 Diabetes: Ophthalmology Exam 08/13/2020 Diabetes: Pedal Pulse Checked 08/13/2020 Diabetes: Sensory Foot Exam 08/13/2020 Diabetes: Visual Foot Exam 08/13/2020 Influenza Vaccine (Season Ended) 2025 Hepatitis B Vaccine Aged Out No longe r eligible based on patient's age to complete this topic Insurance [facility] Care Teams Vacuum Cleaner Repair Person Relationship Specialty Start Date End Date Gabriela Shelby MD [address] [place], [place] PCP - General Internal Medicine 11/01/21
--- OUTSIDE RECORDS SUMMARY | 2024-10-26 09:21 | XMS_ITS | Encounter Summary ---
Author Organization [employer] Address [address] [facility] [address] [place] [address] Care Team Providers Care Regional Manager Name Role Phone Unavailable Primary Care Provider Unavailabl e Encounter Details Date Type Department Care Team (Latest Contact Info) Description 01/12/2019 Abstract [facility] CONVERSIONS Dental, Provider, DDS Social History [...]
== END 2024-10-26 08:54 | disposition home or self-care (01) ==
LOC: HO.XRAY 08:53
PROVIDERS: PCP Internal Medicine; Visit Provider Internal Medicine
DX: R10.13 Epigastric pain (principal)
CPT/HCPCS: 74246

== ENCOUNTER → 2024-10-26 08:55 | Outpatient (BNV) | payer OTHER, SELFPAY | PROVIDERS: PCP Internal Medicine; Visit Provider Radiology Diagnostic Radiology | DX: R10.13 Epigastric pain (principal) | CPT/HCPCS: 74246 ==

== ENCOUNTER 2024-11-09 17:23 | Outpatient (AMB) | payer OTHER, SELFPAY ==
[2024-11-09 17:29] VITALS: BP 120/72; BMI 26.0
--- NOTE | 2024-11-09 17:29 | MHC.PC.OV ---
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: No Accompanied by: Self / Same As Patient Allergies nickel [NICKEL] Adverse Reaction (Intermediate, Verified 11/09/24 17:38) RASH Medication List - Last Reconciled 11/09/24 by Gabriela Ball MD aspirin 81 mg PO DAILY atorvastatin 80 mg PO BEDTIME blood sugar diagnostic (FreeStyle Lite Strips) Use 1 test strip twice a day blood-glucose meter (FreeStyle Lite Meter kit) As directed blood-glucose sensor (FreeStyle Alvino 3 Sensor device) As directed carvedilol 3.125 mg PO BID empagliflozin (Jardiance) 25 mg PO DAILY 90 days ezetimibe 10 mg PO DAILY glimepiride 2 mg PO DAILY 90 days isosorbide mononitrate ER 30 mg PO DAILY lancets (FreeStyle Lancets) Use 1 lancet twice a day metformin 1,000 mg (2 x 500 mg) PO BID 90 days nitroglycerin 0.4 mg sublingual Q5M PRN sertraline 25 mg PO DAILY Tobacco use date assessed: 08/09/24 Dental Screening Dental Screen Date: 08/09/24 HPI HPI Comments History of Present Illness Details The patient is a 59-year-old male presenting with chronic lower back pain and gastrointestinal symptoms. He reports significant lower back pain described as a squeezing sensation exacerbated by leg movements, with discomfort extending to the left leg and shoulder. The patient has a history of chronic arthritis and attributes part of the back pain to this condition. Associated symptoms include fatigue and some degree of weight fluctuation over recent months, with a gain of approximately 20 pounds followed by a slight reduction of 5 pounds. Gastrointestinal issues involve moderate acid reflux and gastritis, accompanied by a small hiatal hernia as identified in a recent upper GI examination. The esophageal inflammation necessitates further exploration via endoscopy. The patient occasionally experiences symptoms of acidity, mainly influenced by his diet. Furthermore, he experiences fecal incontinence characterized by unexpected bowel movements without sensation, with occasional residual fecal matter present after defecation. He has diabetes mellitus type 2 and last A1c was 7.5% in July. Dietary changes were made. Also has hyperlipidemia and his LDL is less than 70 which is within goal. History of coronary artery disease but denies any chest pain or shortness on breath and follows with cardiology. [facility] Medical History (Updated 11/09/24 @ 17:48 by Gabriela Ball MD) Ventricular tachyarrhythmia Atherosclerotic cardiovascular disease Mixed hyperlipidemia Minimal depression Screen for colon cancer Colon polyps Microalbuminuria Physical exam Hyperlipidemia HTN (hypertension) Diabetes Surgical History Varicose vein of leg Hx of CABG Hx of eye surgery H/O colonoscopy History of cataract surgery H/O shoulder surgery Family History Father Diabetes HTN (hypertension) Hyperlipidemia Mother Diabetes HTN (hypertension) Hyperlipidemia Social History Household Members: Spouse Housing: Apartment Alcohol intake: never Patient Tobacco Use Status: Former Tobacco user Tobacco use type: Cigarette e-Cigarette/Vaping Use: Never Used Second Hand Smoke Exposure: No service: No Current occupational status: employed Current occupational exposures/hazards: No Cognitive needs: No Hearing needs: No Vision needs: Yes Questionnaire PHQ-9 Over the last 2 weeks, how often have you been bothered by any of the following problems? 1. Little interest or pleasure in doing things: several days 2. Feeling down, depressed, or hopeless: several days 3. Trouble falling or staying asleep, or sleeping too much: several days 4. Feeling tired or having little energy: several days 5. Poor appetite or overeating: several days 6. Feeling bad about yourself - or that you are a failure or have let yourself or your family down: several days 7. Trouble concentrating on things, such as reading the newspaper or watching television: several days 8. Moving or speaking so slowly that other people could have noticed. Or the opposite - being so fidgety or restless that you have been moving around a lot more than usual: more than half the days 9. Thoughts that you would be better off or of hurting yourself in some way: not at all Total score: 9 Depression Screening Interpretation: Positive Depression Screening Follow-up: Existing condition and Follow-up Visit Requested Depression Screening Done: Yes 60021 - PHQ-9 Billing: Yes Source: Developed by Drs. Julio Fernández, Adrian Flores and colleagues, with an educational augustine from [employer]. Thrive Questionnaire Date Thrive assessed: 08/09/24 I am a: Patient What is your living situation today?: I have a steady place to live Within the past 12 months, did the food you bought not last and you didn't have the money to get more?: Sometimes True Within the past 12 months, did you worry whether your food would run out before you got money to buy more?: I choose not to answer this question Do you have trouble paying for medicines?: I choose not to answer this question Do you have trouble getting transportation to medical appointments?: No Do you have trouble paying your heating and electricity bill?: No Do you have trouble taking care of your child, family member or friend?: No Do you have trouble with day-to-day activities such as bathing, preparing meals, shopping, managing finances, etc.?: I choose not to answer this question Are you currently unemployed and looking for a job?: No Are you interested in more education?: I choose not to answer this question Please select the resources that you would like help with: Utilities Currently or been in a relationship where the following occur: I choose not to answer THRIVE Score: 1 AUDIT C Alcohol Use Questionnaire (AUDIT-C) 1. How often do you have a drink containing alcohol?: Never Total Score: 0 Score Reviewed/Action Taken: No INESSA-7 AMB Questionnaire INESSA-7 Date INESSA - 7 assessed: 08/09/24 Feeling nervous, anxious, or on edge: 1 = Several days Not being able to stop or control worryin = Several days Worrying too much about different things: 1 = Several days Trouble relaxin = Several days Being so restless that it is hard to sit still: 1 = Several days Becoming easily annoyed or irritable: 1 = Several days Feeling afraid as if something awful might happen: 1 = Several days Total INESSA-7 score (0-4 normal; 5-9 mild; 10-14 moderate; 15-21 severe): 7 Source: Developed by Katherine Bennett Kurt Kroenke and colleagues, with an educational augustine from [employer]. INESSA-7 Assessment Billing INESSA-7 Assessment Tool: INESSA-7 Assessment 70018 Review of Systems Const All systems reviewed & are unremarkable except as noted in HPI and below Card Denies chest pain at rest, Denies chest pain with activity, Denies edema, Denies irregular heart rhythm, Denies claudication, Denies dyspnea, Denies dyspnea on exertion, Denies orthopnea, Denies paroxysmal nocturnal dyspnea and Denies slow heart rate Resp Denies cough, Denies dyspnea and Denies dyspnea on exertion GI Denies abdominal pain, Denies change in bowel habits, Denies excessive flatus, Denies nausea and Denies vomiting Physical exam (Primary Care) Vital Signs: Last Vital Signs BP 120/72 11/09/24 17:29 BMI result Body Mass Index 26.0 Tobacco/Smoking Status: Tobacco use Status Tobacco use date assessed 08/09/24 11/09/24 17:34 Patient Tobacco Use Status Former Tobacco user 11/09/24 17:34 Tobacco use type Cigarette 11/09/24 17:34 e-Cigarette/Vaping Use Never Used 11/09/24 17:34 PHQ-9: PHQ-9 Score PHQ-9: Total score 9 11/09/24 17:42 Depression Screening Interpretation: Positive Depression Screening Follow-up: Existing condition and Follow-up Visit Requested Thrive Assessment: Date of Thrive Assessment Date Thrive assessed 08/09/24 11/09/24 17:34 Currently or been in a relationship where the following occur: I choose not to answer Resp Effort & Inspection: normal respiratory effort Auscultation: clear to auscultation bilaterally Cardio Jugular venous distension: no JVD Rate: regular rate Rhythm: regular rhythm Heart sounds: S1 normal heart sound present and S2 normal heart sound present Neuro General: no focal motor deficits Extrem General: Yes full ROM Coding Level of Care Code Est Pt Level 4 (38486) Complex EM visit Add On G2211 Diagnoses Abnormal UGI series R93.3 Bilateral sciatica M54.31; M54.32 Fecal incontinence R15.9 Mixed hyperlipidemia E78.2 Type 2 diabetes mellitus without complication, without long-term current use of insulin E11.9 Diabetes mellitus type: type 2 Diabetes mellitus jail insulin use: without jail use Diabetes mellitus complication status: without complication Primary hypertension I10 Hypertension type: primary hypertension Additional Codes INESSA-7 Assessment Billing - INESSA-7 Assessment Tool: INESSA-7 Assessment 71826 ([id number]) PHQ-9 - 92149 - PHQ-9 Billing: Yes ([id number]) Time Spent (min) 23 Assessment & Plan Assessment & Plan (1) Abnormal UGI series: Code(s): R93.3 - Abnormal findings on diagnostic imaging of other parts of digestive tract Category: Medical (2) Bilateral sciatica: Code(s): M54.31 - Sciatica, right side; M54.32 - Sciatica, left side Category: Medical (3) Fecal incontinence: Code(s): R15.9 - Full incontinence of feces Category: Medical (4) Mixed hyperlipidemia: Code(s): E78.2 - Mixed hyperlipidemia Category: Medical (5) Diabetes: Code(s): E11.9 - Type 2 diabetes mellitus without complications Category: Medical Qualifiers: Diabetes mellitus type: type 2 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 Medication to manage acid reflux will be prescribed while preparing for an endoscopic evaluation to confirm the extent of esophageal changes and gather tissue samples if needed. Referral to a specialist is made for fecal incontinence diagnosis and treatment. I will ensure his medication list reflects his cardiac and allergy considerations, collaborating to develop a weight management plan. Follow-up examinations will assess the treatment effectiveness and adjust care as necessary. Patient was informed and verbally consented to the use of an ambient scribe for clinic note documentation during this visit. I discussed with the patient the importance of identifying the cause of his chronic back pain, explaining the rationale for the MRI. Regarding gastrointestinal concerns, I emphasized the necessity of managing acid reflux and gastritis to prevent further esophageal damage and agreed to arrange for an endoscopy. I reviewed the consequences and management strategies for fecal incontinence. I also highlighted the need for a consult with a specialist for a comprehensive evaluation. We explored potential interactions and adjustments for current prescriptions given his surgical history, allergies, and renal considerations. I stressed monitoring his weight and collaborating on a safe strategy to prevent further weight gain. We agreed upon timely follow-up to evaluate progress and adjust the treatment plan if necessary. Orders: Orders MR lumbar spine wo con Today M54.31 - Sciatica, right side, M54.32 - Sciatica, left side, R15.9 - Full incontinence of feces Referrals Pain Management Referral M54.31 - Sciatica, right side, M54.32 - Sciatica, left side Gastroenterology Referral R93.3 - Abnormal findings on diagnostic imaging of other parts of digestive tract Medications: New pantoprazole 40 mg PO DAILY 90 days 90 tabs 0RF tramadol 50 mg PO Q8H 7 days PRN 21 tabs 0RF pain Patient Instructions: - Schedule an MRI for the back as directed. - Take prescribed medication for acid reflux as instructed. - Follow up with a specialist for fecal incontinence evaluation. - Prepare for an endoscopy appointment. - Monitor and manage dietary choices to help reduce GI symptoms. - Follow up on weight management strategies with the healthcare team. - Return for follow-up appointments as scheduled for ongoing evaluation.
--- OUTSIDE RECORDS SUMMARY | 2024-11-09 18:43 | XMS_ITS | Clinical Summary ---
Author Organization [facility] Facility Address [address] [place] [address] Care Team Providers Care International Accounting Manager Name Role Phone Gabriela Shelby MD Primary Care Provider [phone] Allergies No known active allergies Medications sildenafil [...] patient's age to complete this topic Insurance [facility] Care Teams International Accounting Manager Relationship Specialty Start Date End Date Gabriela Shelby MD [address] [place], [place] PCP - General Internal Medicine 11/01/21
== END 2024-11-09 17:53 | disposition home or self-care (01) ==
PROVIDERS: PCP Internal Medicine; Visit Provider Internal Medicine
DX: E11.69 Type 2 diabetes mellitus with other specified complication (principal); R93.3 Abnormal findings on diagnostic imaging of other parts of digestive tract; M54.31 Sciatica, right side; M54.32 Sciatica, left side; R15.9 Full incontinence of feces; E78.2 Mixed hyperlipidemia; I10 Essential (primary) hypertension

== ENCOUNTER → 2024-11-09 17:23 | Outpatient (BNVA) | payer OTHER, SELFPAY | PROVIDERS: PCP Internal Medicine; Visit Provider Internal Medicine | DX: R93.3 Abnormal findings on diagnostic imaging of other parts of digestive tract (principal); M54.31 Sciatica, right side; M54.32 Sciatica, left side; R15.9 Full incontinence of feces; E78.2 Mixed hyperlipidemia; E11.9 Type 2 diabetes mellitus without complications; I10 Essential (primary) hypertension | CPT/HCPCS: 96127; 99212 ==

== ENCOUNTER → 2024-11-10 09:01 | Outpatient (REF) | payer OTHER, SELFPAY ==
--- NOTE | ~2024-11-10 | NM_ITS ---
EXERCISE MYOCARDIAL PERFUSION STUDY INDICATION: Chest pain, shortness of breath TECHNIQUE: The patient was brought in for an exercise perfusion study on 11/10/2024. Patient performed exercise as per Yunier protocol and was injected 25 mCi of sestamibi once target heart rate was achieved. Images were obtained using the SPECT gamma camera interlaced with the gating device. Images were obtained in supine position. Resting perfusion study was performed on 11/11/2024. Patient was administered 25 mCi of sestamibi intravenously at rest. Images were then obtained in supine position. Total DLP 87 mGy-cm. Images were processed with the software and compared side to side in short axis, horizontal long axis and vertical long axis views. FINDINGS: Raw aquisition reviewed. The stress perfusion study showed decreased tracer uptake along the inferior wall. There is improvement with CT attenuation correction suggestive of diaphragmatic attenuation artifact. The gated study shows normal LV systolic function with calculated LVEF of 71%. LV cavity is normal in size. The gated study shows normal wall thickening and contraction of segments. Resting study shows diminished tracer uptake along the inferior wall. There is improvement with CT attenuation correction suggestive of diaphragmatic attenuation artifact. Gating at rest reveals normal wall motion with ejection fraction at 60%. The findings are consistent with no clear reversible or fixed perfusion abnormality. NM/NM cardiolite stress test IMPRESSION: 1. Myocardial perfusion imaging study shows normal myocardial perfusion. 2. Gated LVEF is 71% during stress and 60% during rest. 3. Transient ischemic dilatation not present. EKG component of the test reported separately. Electronically signed by: Arden Smith MD 11/11/2024 04:24 PM EDT
--- NOTE | 2024-11-10 09:23 | CA_ITS ---
Acquisition Time: 2024-11-10 09:50:59 Total Exercise Time: 00:08:39 Test Indications: CP,Dyspnea Medications: SEE H&P Protocol: OVI Max HR: 142 BPM 88% of Pred: 160 BPM Max BP: 200/100 mmHG Max Work Load: 10.1 METS Exercise stress test with exercise 8 mins 39 secs of Ovi Protocol, achieving 88% MPHR, with reports of SOB and mild dizziness, no chets pain, with isolated PACs and PVCs, with hypertensive response to exercise- max BP 200/100. Without EKG chnages meeting criteria for ischemia during exercise. With T wave inversion during recovery. In recovery, breathing returned to baseline. BP improved. Nuclear images pending. Test reviewed with Dr. Garnica. Referred By: Arden Smith Electronically Signed By: Casey Gordillo
--- OUTSIDE RECORDS SUMMARY | 2024-11-10 09:30 | XMS_ITS | Clinical Summary ---
Author Organization [facility] Facility Address [address] [place] [address] Care Team Providers Care Roll Contour Grinder Name Role Phone Gabriela Shelby MD Primary Care Provider [phone] Allergies No known active allergies Medications sildenafil [...] patient's age to complete this topic Insurance [facility] Care Teams Roll Contour Grinder Relationship Specialty Start Date End Date Gabriela Shelby MD [address] [place], [place] PCP - General Internal Medicine 11/01/21
--- OUTSIDE RECORDS SUMMARY | 2024-11-10 09:30 | XMS_ITS | Encounter Summary ---
Author Organization [employer] Address [address] [facility] [address] [place] [address] Care Team Providers Care Consumer Advocate Name Role Phone Unavailable Primary Care Provider Unavailabl e Encounter Details Date Type Department Care Team (Latest Contact Info) Description 01/12/2019 Abstract [facility] CONVERSIONS Dental, Provider, DDS Social History [...]
--- OUTSIDE RECORDS SUMMARY | 2024-11-10 09:30 | XMS_ITS | Clinical Summary ---
Author Organization [employer] Address [address] [facility] [address] [place] [address] Care Team Providers Care Shipwright Name Role Phone Unavailable Primary Care Provider [...]
[2024-11-10 11:12] LABS: Creatinine Urine 79.51 mg/dL; Microalbum/Creatinine Ratio Ur 103.1 ug/mg cr (<30)
[2024-11-10 11:19] LABS: Alanine Aminotransferase 33 U/L (0-40); Albumin Level 4.4 g/dL (3.5-5.0); Alkaline Phosphatase 70 U/L (39-117); Anion Gap 10 (12-20); Aspartate Amino Transferase 24 U/L (5-37); Bilirubin Total 0.6 mg/dL (0.0-1.0); Blood Urea Nitrogen 16 mg/dL (9-16); Calcium 9.7 mg/dL (8.4-10.2); Carbon Dioxide 28 mmol/L (22-29); Chloride 107 mmol/L (96-108); Cholesterol 116 mg/dL (<200); Estimated Glomerular Filt Rate > 60; Glucose Fasting 107 mg/dL (60-99); HDL Cholesterol 45 mg/dL (>40); LDL Cholesterol Calculated 54 mg/dL (<100); Potassium 4.3 mmol/L (3.3-5.1); Sodium 141 mmol/L (135-145); Total Protein 7.4 g/dL (6.5-8.0); Triglycerides 89 mg/dL (<150)
[2024-11-10 11:21] LABS: Vitamin D 25-OH Total 24.8 ng/mL (>30)
== END ==
LOC: HO.CARD 09:01
PROVIDERS: Absent Provider Internal Medicine; PCP Internal Medicine; Visit Provider Internal Medicine
DX: I25.10 Atherosclerotic heart disease of native coronary artery without angina pectoris (principal); R07.2 Precordial pain; G47.00 Insomnia, unspecified; E55.9 Vitamin D deficiency, unspecified; R80.9 Proteinuria, unspecified; E78.5 Hyperlipidemia, unspecified
CPT/HCPCS: 36415; 78452; 80053; 80061; 82043; 82306; 82570; 93017; A9500

== ENCOUNTER → 2024-11-10 09:23 | Outpatient (BNV) | payer OTHER, SELFPAY | PROVIDERS: Absent Provider Internal Medicine; PCP Internal Medicine | DX: R07.2 Precordial pain (principal) | CPT/HCPCS: 93016; 93018 ==

== ENCOUNTER → 2024-11-16 09:04 | Outpatient (REF) | payer OTHER, SELFPAY ==
--- OUTSIDE RECORDS SUMMARY | 2024-11-16 09:48 | XMS_ITS | Clinical Summary ---
Author Organization [facility] Facility Address [address] [place] [address] Care Team Providers Care Multicultural Internship Name Role Phone Gabriela Shelby MD Primary Care Provider Allergies No known active allergies Medications sildenafil [...] patient's age to complete this topic Insurance [facility] Care Teams Multicultural Internship Relationship Specialty Start Date End Date Gabriela Shelby MD [address] [place], [place] PCP - General Internal Medicine 11/01/21
== END ==
LOC: HO.CARD 09:04
PROVIDERS: PCP Internal Medicine; Visit Provider Internal Medicine
DX: I25.10 Atherosclerotic heart disease of native coronary artery without angina pectoris (principal)
CPT/HCPCS: 93306

== ENCOUNTER → 2024-11-16 09:08 | Outpatient (BNV) | payer OTHER, SELFPAY | PROVIDERS: PCP Internal Medicine; Visit Provider Internal Medicine | DX: I25.10 Atherosclerotic heart disease of native coronary artery without angina pectoris (principal) | CPT/HCPCS: 93306 ==

== ENCOUNTER 2024-11-17 09:15 | Outpatient (AMB) | payer OTHER, SELFPAY ==
--- NOTE | 2024-11-17 09:50 | MHC.PC.OV ---
Vital Signs 11/17/24 09:53 Height 5 ft 8 in Weight 173 lb BMI 26.3 BP 120/70 Blood Pressure Location Lt brachial Position Sitting Intake Visit Reasons: annual exam Intake Note: Patient here for an annual physical exam Acetylene Cutter Required: No Accompanied by: Self / Same As Patient Allergies nickel [NICKEL] Adverse Reaction (Intermediate, Verified 11/17/24 10:36) RASH Medication List - Last Reconciled 11/17/24 by Gabriela Ball MD aspirin 81 mg PO DAILY atorvastatin 80 mg PO BEDTIME blood sugar diagnostic (FreeStyle Lite Strips) Use 1 test strip twice a day blood-glucose meter (FreeStyle Lite Meter kit) As directed blood-glucose sensor (FreeStyle Alvino 3 Sensor device) As directed carvedilol 3.125 mg PO BID empagliflozin (Jardiance) 25 mg PO DAILY 90 days ezetimibe 10 mg PO DAILY glimepiride 2 mg PO DAILY 90 days isosorbide mononitrate ER 30 mg PO DAILY lancets (FreeStyle Lancets) Use 1 lancet twice a day metformin 1,000 mg (2 x 500 mg) PO BID 90 days nitroglycerin 0.4 mg sublingual Q5M PRN pantoprazole 40 mg PO DAILY 90 days sertraline 25 mg PO DAILY tramadol 50 mg PO Q8H PRN 7 days Tobacco use date assessed: 08/09/24 Dental Screening Dental Screen Date: 11/17/24 Did you have a dental visit in the last 12 months?: No Did you have a dental problem in the last 6 months where you did not have access to dental care?: No Was dental information given to patient?: Patient has dentist HPI HPI Comments History of Present Illness Details The patient is a 59-year-old male presenting for an annual physical examination and follow-up. He has been managing chronic conditions including hypertension, hyperlipidemia, type 2 diabetes mellitus, and a history of myocardial infarction. Current management regimens show satisfactory control with his most recent glucose reading at 107 mg/dL and A1c at 6.3%. The patient's LDL cholesterol is at 54 mg/dL, reflecting effective ongoing management of his lipid profile. He is noted to have a vitamin D deficiency, with recent levels at 24.8 ng/mL. Additionally, microalbuminuria remains a concern, though he reports a decrease in urine protein levels over time. The patient also has a recent assessment showing moderate gastroesophageal reflux with mild esophagitis, with a plan in place for an upcoming gastroenterological evaluation. He reports no significant symptomatology currently affecting his quality of life. - Recommended pneumococcal vaccination was not given in 2022; administration is proposed. - Tetanus vaccination updated in 2018 with revaccination due in 2028. - Recent lab results indicate well-managed glucose and cholesterol levels. - Advised increased sun exposure and dietary vitamin D intake for deficiency. - Patient was recommended to follow endoscopy due to esophagitis. [facility] Medical History (Updated 11/17/24 @ 10:50 by Gabriela Ball MD) Ventricular tachyarrhythmia Atherosclerotic cardiovascular disease Mixed hyperlipidemia Minimal depression Screen for colon cancer Colon polyps Microalbuminuria Physical exam Hyperlipidemia HTN (hypertension) Diabetes Surgical History Varicose vein of leg Hx of CABG Hx of eye surgery H/O colonoscopy History of cataract surgery H/O shoulder surgery Family History Father Diabetes HTN (hypertension) Hyperlipidemia Mother Diabetes HTN (hypertension) Hyperlipidemia Social History Household Members: Spouse Housing: Apartment Alcohol intake: never Patient Tobacco Use Status: Former Tobacco user Tobacco use type: Cigarette e-Cigarette/Vaping Use: Never Used Second Hand Smoke Exposure: No service: No Current occupational status: employed Current occupational exposures/hazards: No Cognitive needs: No Hearing needs: No Vision needs: Yes Questionnaire Thrive Questionnaire Date Thrive assessed: 11/09/24 I am a: Patient What is your living situation today?: I have a steady place to live Within the past 12 months, did the food you bought not last and you didn't have the money to get more?: Sometimes True Within the past 12 months, did you worry whether your food would run out before you got money to buy more?: I choose not to answer this question Do you have trouble paying for medicines?: I choose not to answer this question Do you have trouble getting transportation to medical appointments?: No Do you have trouble paying your heating and electricity bill?: No Do you have trouble taking care of your child, family member or friend?: No Do you have trouble with day-to-day activities such as bathing, preparing meals, shopping, managing finances, etc.?: I choose not to answer this question Are you currently unemployed and looking for a job?: No Are you interested in more education?: I choose not to answer this question Please select the resources that you would like help with: Utilities Currently or been in a relationship where the following occur: I choose not to answer THRIVE Score: 1 INESSA-7 AMB Questionnaire INESSA-7 Date INESSA - 7 assessed: 08/09/24 Source: Developed by Drs. Julio Fernández, Katherine Celis, Adrian Mcneill and colleagues, with an educational augustine from [employer]. Review of Systems Const All systems reviewed & are unremarkable except as noted in HPI and below Card Denies chest pain at rest, Denies chest pain with activity, Denies edema, Denies irregular heart rhythm, Denies claudication, Denies dyspnea, Denies dyspnea on exertion, Denies orthopnea, Denies paroxysmal nocturnal dyspnea and Denies slow heart rate Resp Denies cough, Denies dyspnea and Denies dyspnea on exertion GI Denies abdominal pain, Denies change in bowel habits, Denies excessive flatus, Denies nausea and Denies vomiting Skin/Breast Denies bleeding lesions, Denies changing lesions and Denies rash Neuro Denies lack of coordination Physical exam (Primary Care) Vital Signs: Last Vital Signs BP 120/70 11/17/24 09:53 BMI result Body Mass Index 26.3 Tobacco/Smoking Status: Tobacco use Status Tobacco use date assessed 08/09/24 11/17/24 09:50 Patient Tobacco Use Status Former Tobacco user 11/17/24 09:50 Tobacco use type Cigarette 11/17/24 09:50 e-Cigarette/Vaping Use Never Used 11/17/24 09:50 Thrive Assessment: Date of Thrive Assessment Date Thrive assessed 11/09/24 11/17/24 09:50 Currently or been in a relationship where the following occur: I choose not to answer HENMT Head: Yes normal to inspection, Yes normocephalic and Yes atraumatic Ears: external ears normal Eyes General: appearance normal, both eyes and all related structures Eyelids: Yes eyelids normal Conjunctivae: conjunctivae normal Neck Neck: Yes normal visual inspection and Yes supple Resp Effort & Inspection: normal respiratory effort Auscultation: clear to auscultation bilaterally Cardio Jugular venous distension: no JVD Rate: regular rate Rhythm: regular rhythm Heart sounds: S1 normal heart sound present and S2 normal heart sound present GI Inspection: Yes normal to inspection Palpation (GI): Soft to palpation and nontender Auscultation: normal bowel sounds Skin General skin exam: no rashes or lesions noted Neuro General: no focal motor deficits Extrem General: Yes full ROM Psych Appearance: grossly normal Results AMB Hemoglobin A1c AMB Hemoglobin A1c 6.3 % Last Edit by RUBY Saldivar on 11/17/24 10:06 Immunizations pneumoc 20-genoveva conj-dip cr(PF) 0.5 mL IM syringe Performing Provider: Gabriela Ball MD [facility] Administered by: RUBY Saldivar on 11/17/24 10:53 Dose Route Admin Location Dispensed Lot Number Expiration Date NDC Vehicle Assembly Inspector 0.5 mL IM Left Deltoid 0.5 mL [id number] 09/11/25 1375-7893-42 [employer] VIS Given Date VIS Provided VIS Publication Date 11/17/24 Single Vaccine 22 Eligibility Eligibility Date Funding Source Not [facility] Eligible 11/17/24 Private Results Reviewed Results Reviewed: Laboratory Last Values Hgb A1c (Clinic) 6.3 % (4.0-6.0) H 11/17/24 09:49 Coding Level of Care Code Est Pt Prev Care 40-64y(53638) Diagnoses Physical exam Z00.00 Type 2 diabetes mellitus without complication, without long-term current use of insulin E11.9 Diabetes mellitus type: type 2 Diabetes mellitus continuous churn buttermaker insulin use: without continuous churn buttermaker use Diabetes mellitus complication status: without complication Time Spent (min) 30 Assessment & Plan Assessment & Plan (1) Physical exam: Code(s): Z00.00 - Encounter for general adult medical examination without abnormal findings Category: Medical (2) Diabetes: Code(s): E11.9 - Type 2 diabetes mellitus without complications Category: Medical Qualifiers: Diabetes mellitus type: type 2 Diabetes mellitus care home insulin use: without continuous churn buttermaker use Diabetes mellitus complication status: without complication Qualified Code(s): E11.9 - Type 2 diabetes mellitus without complications Plan Management of hypertension, hyperlipidemia, and type 2 diabetes continues with current medications and lifestyle adjustments. Vitamin D deficiency is being addressed through increased sun exposure and dietary changes. GERD and esophagitis require pantoprazole use, dietary modifications, and an upcoming endoscopy for evaluation. Follow-up with a transfer and line up worker is advised for microalbuminuria. There is a critical need to administer the pneumococcal vaccination promptly. Nutritional modifications, as well as appropriate specialist appointments, are arranged, ensuring comprehensive care. Patient was informed and verbally consented to the use of an ambient scribe for clinic note documentation during this visit. I discussed with the patient his current diagnoses and management strategies for hypertension, diabetes, and hyperlipidemia, emphasizing the importance of medication adherence and monitoring. We reviewed his low vitamin D levels and recommended increased sun exposure and dietary adjustments, stressing the benefits of maintaining adequate levels. Pantoprazole was prescribed for GERD. We talked through the need for an endoscopy to fully assess esophagitis and the significance of avoiding particular foods and maintaining proper sleeping positions. I highlighted re-establishing contact with his transfer and line up worker concerning kidney health and organized upcoming cardiology and gastroenterology appointments, outlining the importance of early prevention and care. The pneumococcal vaccine plan was articulated, and he agreed on the necessity of such preventive measures. Orders: Orders Pneumococcal 20 Immunization Today Z23 - Encounter for immunization Lipid Panel 4 Months E78.5 - Hyperlipidemia, unspecified Comprehensive [place]. Panel Fast 4 Months R93.3 - Abnormal findings on diagnostic imaging of other parts of digestive tract AMB Hemoglobin A1c Today E11.9 - Type 2 diabetes mellitus without complications Microalbumin, Random (w Creat) 4 Months R80.9 - Proteinuria, unspecified Vitamin D 25-OH Total 4 Months E55.9 - Vitamin D deficiency, unspecified Referrals Nephrology Referral R80.9 - Proteinuria, unspecified Medications: New cholecalciferol (vitamin D3) 25 mcg PO DAILY 90 caps 1RF 90 days Refilled isosorbide mononitrate ER 30 mg PO DAILY 90 tabs 1RF I25.10 - Atherosclerotic heart disease of [place] coronary artery without angina pectoris Patient Instructions: - Continue current medications for blood pressure, cholesterol, and diabetes as prescribed. - Increase sun exposure and include vitamin D-rich foods in your diet. - Use pantoprazole as directed for reflux management. - Avoid eating three hours before bedtime, use multiple pillows, and maintain elevation while sleeping. - Schedule and attend gastroenterology and cardiology appointments. - Get updated pneumococcal vaccination. - Monitor and maintain regular follow-ups for kidney health. - Seek care if experiencing new or worsening symptoms.
--- OUTSIDE RECORDS SUMMARY | 2024-11-17 09:52 | XMS_ITS | Clinical Summary ---
Author Organization [employer] Address [address] [place] [address] Care Team Providers Care Waistline Joiner Lockstitch Name Role Phone Unavailable Primary Care Provider [...]
--- OUTSIDE RECORDS SUMMARY | 2024-11-17 09:52 | XMS_ITS | Clinical Summary ---
Author Organization [facility] Facility Address [address] [place] [id number] Care Team Providers Care Vacuum Truck Driver Name Role Phone Gabriela Shelby MD Primary Care Provider [phone] Allergies No known active allergies Medications sildenafil [...] patient's age to complete this topic Insurance [facility] Care Teams Vacuum Truck Driver Relationship Specialty Start Date End Date Gabriela Shelby MD [address] [place], [place] PCP - General Internal Medicine 11/01/21
--- OUTSIDE RECORDS SUMMARY | 2024-11-17 09:52 | XMS_ITS | Encounter Summary ---
Author Organization [employer] Address [address] [place] [address] Care Team Providers Care Yeast Supervisor Name Role Phone Unavailable Primary Care Provider Unavailabl e Encounter Details Date Type Department Care Team (Latest Contact Info) Description 01/12/2019 Abstract [facility] CONVERSIONS Dental, Provider, DDS Social History [...]
[2024-11-17 09:53] VITALS: BP 120/70; BMI 26.3
== END 2024-11-17 10:56 | disposition home or self-care (01) ==
LOC: HO.HMCH 09:16
PROVIDERS: PCP Internal Medicine; Visit Provider Internal Medicine
DX: Z00.00 Encounter for general adult medical examination without abnormal findings (principal); E11.9 Type 2 diabetes mellitus without complications; Z23 Encounter for immunization

== ENCOUNTER → 2024-11-17 09:15 | Outpatient (BNVA) | payer OTHER, SELFPAY | PROVIDERS: PCP Internal Medicine; Visit Provider Internal Medicine | DX: Z00.00 Encounter for general adult medical examination without abnormal findings (principal); Z23 Encounter for immunization; E11.9 Type 2 diabetes mellitus without complications | CPT/HCPCS: 83036; 90471; 90677; 99396 ==

== ENCOUNTER 2024-11-21 14:38 | Outpatient (REF) | payer OTHER, SELFPAY ==
--- NOTE | ~2024-11-21 | MR_ITS ---
CLINICAL HISTORY: M54.31 - Sciatica, right side MR of the lumbar spine without contrast Comparison: None Findings: Normal alignment. Normal marrow signal. No cord expansion or abnormal signal intensity. The conus medullaris terminates at L1, which is normal. The cauda equina is unremarkable. L1/L2: No disc herniation. No facet joint or ligamentum flavum hypertrophy. No central canal stenosis. No lateral recess stenosis. No foraminal stenosis. L2/L3: No disc herniation. Mild facet joint and ligamentum flavum hypertrophy. No central canal stenosis. No lateral recess stenosis. No foraminal stenosis. L3/L4: 2.5 mm broad-based disc bulge. Large anterior osteophytosis. Mild facet joint and ligamentum flavum hypertrophy. Right facet joint cysts measuring 4 mm. Mild central canal stenosis. Mild bilateral lateral recess stenosis. No foraminal stenosis. L4/L5: 4 mm broad-based disc bulge with annular fissure. Moderate facet joint and ligamentum flavum hypertrophy. Mild central canal stenosis. Moderate bilateral lateral recess stenosis. No foraminal stenosis. L5/S1: Left paracentral disc extrusion measuring 1.8 x 0.8 x 1.8 cm. Moderate facet joint and ligamentum flavum hypertrophy. Mild central canal stenosis. Mild right and severe left lateral recess stenosis. No foraminal stenosis. Impression: 1.8 cm left paracentral disc extrusion at L5/S1 causing mild central and severe left lateral recess stenosis. Other degenerative change, detailed above. This document has been electronically signed by: Michelle Carolina MD on 11/21/2024 16:05:26
== END 2024-11-21 14:39 | disposition home or self-care (01) ==
LOC: HO.MRI 14:38
PROVIDERS: PCP Internal Medicine; Visit Provider Internal Medicine
DX: M54.31 Sciatica, right side (principal); M54.32 Sciatica, left side; R15.9 Full incontinence of feces
CPT/HCPCS: 72148

== ENCOUNTER → 2024-11-21 14:39 | Outpatient (BNV) | payer OTHER, SELFPAY | PROVIDERS: PCP Internal Medicine; Visit Provider Radiology Diagnostic Radiology | DX: M51.27 Other intervertebral disc displacement, lumbosacral region (principal); M48.061 Spinal stenosis, lumbar region without neurogenic claudication | CPT/HCPCS: 72148 ==

== ENCOUNTER 2024-11-24 16:01 | Outpatient (AMB) | payer OTHER, SELFPAY ==
--- OUTSIDE RECORDS SUMMARY | 2024-11-24 16:02 | XMS_ITS | Clinical Summary ---
Author Organization [employer] Address [address] [place] [address] Care Team Providers Care Property Worker Name Role Phone Unavailable Primary Care Provider [...]
--- OUTSIDE RECORDS SUMMARY | 2024-11-24 16:02 | XMS_ITS | Encounter Summary ---
Author Organization [employer] Address [address] [place] [address] Care Team Providers Care Senior Structural Engineer Name Role Phone Unavailable Primary Care Provider Unavailabl e Encounter Details Date Type Department Care Team (Latest Contact Info) Description 01/12/2019 Abstract [facility] CONVERSIONS Dental, Provider, DDS Social History [...]
--- OUTSIDE RECORDS SUMMARY | 2024-11-24 16:02 | XMS_ITS | Clinical Summary ---
Author Organization [facility] Facility Address [address] [place] [id number] Care Team Providers Care Heavy Coil Winder Name Role Phone Gabriela Shelby MD Primary Care Provider [phone] Allergies No known active allergies Medications sildenafil [...] patient's age to complete this topic Insurance [facility] Care Teams Heavy Coil Winder Relationship Specialty Start Date End Date Gabriela Shelby MD [address] [place], [place] PCP - General Internal Medicine 11/01/21
--- NOTE | 2024-11-24 16:05 | MHC.OFFVIS ---
Vital Signs 11/24/24 16:15 Height 5 ft 8 in Weight 175 lb BMI 26.6 BP 116/70 Blood Pressure Location Rt brachial Position Sitting Pulse 76 Pulse Source Pulse Oximeter Pulse Oximetry (%) 98 Oxygen Delivery Method Room Air Intake Visit Reasons: Epigastric pain & [place] consult Intake Note: NEW PATIENT for eval of epigastric pain and colo consult. Last colo - 2015 w/ Dr. Segal CC; Pt is not 100% clear on medications but knows that he takes a PPI. GERD has not been well controlled as it had been previously. Senior Instrumentation Engineer Required: Yes Senior Instrumentation Engineer Services: Senior Instrumentation Engineer Present Senior Instrumentation Engineer Name: Cody [id number] Accompanied by: Self / Same As Patient Allergies nickel [NICKEL] Adverse Reaction (Intermediate, Verified 11/24/24 16:14) RASH HPI HPI Epigastric pain & [place] consult: Details: 59 year old? male here today for pre colonoscopy screening.? Patient was sent to us by his PCP.? Last colonoscopy was in [address] Segal. Recommendation was made for 5 years due to tubular adenoma. Patient unable to come back sooner due to call with and then open heart surgery in November 2022. Patient sees Dr. Smith for follow-ups. Has appointment on of this month.? Patient had normal stress test and echo showed 61% of EF. Most likely he will be optimized to go for procedure, however we will ask for clearance. Patient denies any gastrointestinal symptoms in the past or at present.? Denies any personal or family history of gastrointestinal disease or CRC.? Denies history of difficulty with sedation or anesthesia in the past.? Negative for history of sleep apnea.? Denies any history of cardiac, renal, pulmonary, or hepatic disease.?? No history of infectious? diseases like hepatitis A, B, C, HIV or tuberculosis.? Patient is on low-dose aspirin PFSH Medical History Ventricular tachyarrhythmia Atherosclerotic cardiovascular disease Mixed hyperlipidemia Minimal depression Screen for colon cancer Colon polyps Microalbuminuria Physical exam Hyperlipidemia HTN (hypertension) Diabetes Surgical History Varicose vein of leg Hx of CABG Hx of eye surgery H/O colonoscopy History of cataract surgery H/O shoulder surgery Family History Father Diabetes HTN (hypertension) Hyperlipidemia Mother Diabetes HTN (hypertension) Hyperlipidemia Social History Household Members: Spouse Housing: Apartment Alcohol intake: never Patient Tobacco Use Status: Former Tobacco user Tobacco use type: Cigarette e-Cigarette/Vaping Use: Never Used Second Hand Smoke Exposure: No service: No Current occupational status: employed Current occupational exposures/hazards: No Cognitive needs: No Hearing needs: No Vision needs: Yes Review of Systems Const Denies weight gain and Denies weight loss ENT Reports no additional complaints, Denies dysphagia and Denies odynophagia Card Reports no additional complaints Resp Reports no additional complaints GI Denies abdominal pain, Denies belching, Denies melena, Denies bloating, Denies change in bowel habits, Denies dysphagia, Denies excessive flatus, Denies dyspepsia, Denies heartburn, Denies diarrhea, Denies loose stools, Denies nausea, Denies odynophagia and Denies vomiting Reports no additional complaints Musc Reports no additional complaints Neuro Reports no additional complaints Psych Reports no additional complaints Endo Reports no additional complaints Physical Exam Vital Signs: Last Vital Signs Pulse 76 11/24/24 16:15 BP 116/70 11/24/24 16:15 Pulse Ox 98 11/24/24 16:15 Oxygen Delivery Method Room Air 11/24/24 16:15 BMI result Body Mass Index 26.6 Const General: healthy appearing, no acute distress and well developed Nutritional Appearance: well nourished Orientation/consciousness: patient oriented x3 Resp Effort & Inspection: normal respiratory effort, able to speak in complete sentences, no tracheal deviation and symmetric chest movement Auscultation: clear to auscultation bilaterally Cardio Rate: regular rate GI Inspection: Yes normal to inspection and No distended Palpation (GI): Soft to palpation, not firm, nontender and No hepatosplenomegaly present Auscultation: normal bowel sounds General: Yes no CVA tenderness Back/Spine/Pelvis Back: no CVA tenderness Skin General skin exam: elasticity normal, turgor normal and dry skin Neuro General: patient oriented x3 Psych Appearance: grossly normal Mental Status: mental status grossly normal Assessment & Plan Assessment & Plan (1) Screen for colon cancer: Code(s): Z12.11 - Encounter for screening for malignant neoplasm of colon Category: Medical Plan Patient denies any GI, cardiac or respiratory symptoms. Symptoms of acid reflux are suppressed for the most part with pantoprazole.? Denies any issues with anesthesia in the past.? Denies any history of sleep apnea.? No history infectious diseases in the past or present.? Patient is on low-dose aspirin. No family or personal history of colon cancer or polyps.? Patient denies melena, hematochezia, unintentional weight loss or ribbon like stools.? As mentioned above in HPI patient has a appointment with Dr. Smith, will ask for risk stratification. Normal echo November 16 and stress test in October. Discussed at length the pre-procedure,? prep, diet & medications as well as what to expect prior, during and after the procedure.?? Stressed the importance of good bowel prep.? Recommended the use of Vaseline or Calmoseptine OTC & baby wipes with bowel movements to promote comfort.? ?Patient verbalizes understanding and agrees to plan of care.? He was given the opportunity to ask questions and all questions answered.? We will see him after the procedure.? Medications: New bisacodyl (Dulcolax (bisacodyl)) take 4 tabs at noon the day before your colonoscopy 20 mg (4 x 5 mg) PO ONCE 1 day 4 tabs 0RF Z12.11 - Encounter for screening for malignant neoplasm of colon polyethylene glycol 3350 (Miralax) As directed by gastroenterology department at [facility] 238 grams PO ONCE 238 grams 0RF Z12.11 - Encounter for screening for malignant neoplasm of colon Coding Level of Care Code New Pt Level 3 (54239) Diagnoses Screen for colon cancer Z12.11 Time Spent (min) 40 Comment 30 minutes spent with patient and additional 10 minutes spent his records
[2024-11-24 16:15] VITALS: BP 116/70; PULSE 76; O2SAT 98; BMI 26.6
== END 2024-11-24 16:38 | disposition home or self-care (01) ==
PROVIDERS: PCP Internal Medicine; Visit Provider Nurse Practitioner Family
DX: Z01.818 Encounter for other preprocedural examination (principal); Z12.11 Encounter for screening for malignant neoplasm of colon; Z86.0100 Personal history of colon polyps, unspecified
CPT/HCPCS: 99214

== ENCOUNTER → 2024-11-24 16:01 | Outpatient (BNVA) | payer OTHER, SELFPAY | PROVIDERS: PCP Internal Medicine; Visit Provider Nurse Practitioner Family | DX: Z12.11 Encounter for screening for malignant neoplasm of colon (principal) | CPT/HCPCS: 99212 ==

== ENCOUNTER 2024-12-03 09:54 | Outpatient (AMB) | payer OTHER, SELFPAY ==
--- OUTSIDE RECORDS SUMMARY | 2024-12-03 10:09 | XMS_ITS | Encounter Summary ---
Author Organization [employer] Address [address] [facility] [address] [place] [address] Care Team Providers Care Loom Blower Name Role Phone Unavailable Primary Care Provider Unavailabl e Encounter Details Date Type Department Care Team (Latest Contact Info) Description 01/12/2019 Abstract [facility] CONVERSIONS Dental, Provider, DDS Social History [...]
--- NOTE | 2024-12-03 10:20 | A.SPINEOV_ITS ---
Vital Signs 12/03/24 10:21 Height 5 ft 8 in Weight 171 lb BMI 26.0 Intake Visit Reasons: LBP Intake Note: Mr. Ag is here today c/o Low back pain. Analytics Lead Required: Yes Analytics Lead Services: Analytics Lead Present Analytics Lead Name: Radha Oleary LM Allergies nickel [NICKEL] Adverse Reaction (Intermediate, Verified 12/03/24 10:22) RASH Physical Exam Vital Signs: BMI result Body Mass Index 26.0 Assessment & Plan Assessment & Plan (1) Lumbar disc herniation: Code(s): M51.26 - Other intervertebral disc displacement, lumbar region Category: Medical Plan Dear Dr Dawson Ball, Thank you for referring Mr Ag to our office today. He is a very nice 59- year-old gentleman who speaks [place], this visit was done with the help of therapeutic consultant Radha who is my surgical garment inspector. He has had chronic back pain for 40 years related to an incident where he did a lot of lifting when he was young man and experienced acute onset back pain at that time. On and off through the years he has had chronic back pain in his lower lumbar region was told he has arthritis in there and has generally just treated it with I expect and therapies. About a month ago or thereabouts he noticed an increase in his back pain. He is also starting to feel some pain down both of his legs with some cramping. Also notice some tingling in his left foot. He ultimately underwent an MRI showing a herniated disc and he was referred over to see us. He has been taking some tramadol and that helps. He takes it only periodically. The pain is better than what it was, it comes and goes but it is still there. No cauda equina symptoms. To this point for his current flare-up there has been no dedicated conservative management. PMH: History of coronary artery disease, status post coronary artery bypass grafting, he is followed by Dr. Smith here at the hospital. Recent stress test was negative. He was told he had a minor stroke during his bypass surgery but recovered from that without incident. History of diabetes with a A1c is 6.3, hypertension, depression, cataract surgery, vein stripping by Dr. Mcgrath. Social hx: He has not smoke, drink use any recreational drugs Medications: Aspirin, Lipitor, Dulcolax, carvedilol, vitamin D3, Jardiance, Zetia, glimepiride, isosorbide, metformin, pantoprazole, sertraline and tramadol Allergies: Nickel Physical exam: Awake alert oriented no acute distress, strength and reflexes normal in the lower extremities Imaging review: Lumbar MRI done at [facility] shows acute herniated disc on the left at L5-S1 amongst other mild degenerative changes. No significant central canal stenosis but there is compression of the left S1 nerve root. Impression: 59-year-old male presents for evaluation of acute on chronic back pain which I believe is secondary to his herniated disc on the left at L5-S1. I can not explain why he has bilateral lower extremity pain, but certainly would explain the pain he is having down his left leg with walking. It would also explain some of his increase in the back pain. Right now the pain has seemed to become much more manageable. He takes tramadol as needed. He has had no dedicated conservative treatment. We talked about the option of starting some physical therapy as well to help expedite some of his recovery. He was interested in this so I gave him a referral. He will come back and see us down the road if the symptoms change. Thank you for allowing us to care for your patient. The total time spent with this visit with this patient was 45 minutes reviewing history, physical exam, lumbar imaging review, and implementation of treatment plan or further diagnostic testing Higinio Hightower MD,PhD [facility] Orders: Orders PT Evaluation and Treatment Today M48.061 - Spinal stenosis, lumbar region without neurogenic claudication Coding Level of Care Code New Pt Level 4 (59187) Diagnoses Lumbar disc herniation M51.26
[2024-12-03 10:21] VITALS: BMI 26.0
== END 2024-12-03 10:56 | disposition home or self-care (01) ==
LOC: HO.HNS 09:54
PROVIDERS: PCP Internal Medicine; Referring Provider Internal Medicine; Visit Provider Physician Assistant
DX: M51.26 Other intervertebral disc displacement, lumbar region (principal)
CPT/HCPCS: 99204

== ENCOUNTER → 2024-12-03 09:54 | Outpatient (BNVA) | payer OTHER, SELFPAY | PROVIDERS: PCP Internal Medicine; Referring Provider Internal Medicine; Visit Provider Physician Assistant | DX: M51.26 Other intervertebral disc displacement, lumbar region (principal) | CPT/HCPCS: 99202 ==

== ENCOUNTER 2024-12-09 13:42 | Outpatient (AMB) | payer OTHER, SELFPAY ==
--- NOTE | 2024-12-09 13:49 | A.OFFVIS_ITS ---
Vital Signs 12/09/24 13:51 Height 5 ft 8 in Weight 177 lb 4.026 oz BMI 26.9 BP 112/74 Blood Pressure Location Lt brachial Position Sitting Pulse 83 Pulse Source Pulse Oximeter Intake Visit Reasons: fu/ stress test/ echo/ clear colonoscopy Public Relations Counselor Required: Yes Public Relations Counselor Language: Crochet Machine Operator Name: [email or web address] Accompanied by: Self / Same As Patient Allergies nickel [NICKEL] Adverse Reaction (Intermediate, Verified 12/03/24 10:22) RASH Medication List - Last Reconciled 12/09/24 by Arden Smith MD aspirin 81 mg PO DAILY atorvastatin 80 mg PO BEDTIME bisacodyl (Dulcolax (bisacodyl)) 20 mg (4 x 5 mg) PO ONCE 1 day blood sugar diagnostic (FreeStyle Lite Strips) Use 1 test strip twice a day blood-glucose meter (FreeStyle Lite Meter kit) As directed blood-glucose sensor (FreeStyle Alvino 3 Sensor device) As directed carvedilol 3.125 mg PO BID cholecalciferol (vitamin D3) 25 mcg PO DAILY 90 days empagliflozin (Jardiance) 25 mg PO DAILY 90 days ezetimibe 10 mg PO DAILY glimepiride 2 mg PO DAILY 90 days isosorbide mononitrate ER 30 mg PO DAILY lancets (FreeStyle Lancets) Use 1 lancet twice a day metformin 1,000 mg (2 x 500 mg) PO BID 90 days nitroglycerin 0.4 mg sublingual Q5M PRN pantoprazole 40 mg PO DAILY 90 days polyethylene glycol 3350 (Miralax) 238 grams PO ONCE sertraline 25 mg PO DAILY tramadol 50 mg PO Q8H PRN 7 days HPI Comments Details: Dawood returns for follow-up regarding coronary disease. In 2022, he underwent coronary artery bypass surgery. Over time, he had described pains chest pains. Sometimes it happens when he is lifting weights. Sometimes when he is walking. Possibly they are just sternotomy pains. Less likely anginal. He also complaints of some shortness of breath with exertion. Has had one nosebleed episode, possibly related to aspirin. Not recurrent. Overall, more or less the same as before. No new concerns. He has completed an echocardiogram and stress test. Patient thinks he may also has some allergies causing some of his symptoms. [facility] Medical History Ventricular tachyarrhythmia Atherosclerotic cardiovascular disease Mixed hyperlipidemia Minimal depression Screen for colon cancer Colon polyps Microalbuminuria Physical exam Hyperlipidemia HTN (hypertension) Diabetes Surgical History Varicose vein of leg Hx of CABG Hx of eye surgery H/O colonoscopy History of cataract surgery H/O shoulder surgery Family History Father Diabetes HTN (hypertension) Hyperlipidemia Mother Diabetes HTN (hypertension) Hyperlipidemia Social History Household Members: Spouse Housing: Apartment Alcohol intake: never Patient Tobacco Use Status: Former Tobacco user Tobacco use type: Cigarette e-Cigarette/Vaping Use: Never Used Second Hand Smoke Exposure: No service: No Current occupational status: employed Current occupational exposures/hazards: No Cognitive needs: No Hearing needs: No Vision needs: Yes Review of Systems Const Denies chills, Denies fatigue, Denies fever(s), Denies frequent falls, Denies weakness, Denies weight gain and Denies weight loss ENT Denies dizziness Card Denies chest pain, Denies leg edema, Denies lightheadedness, Denies palpitations, Denies dyspnea and Denies dyspnea on exertion Resp Denies cough, Denies dyspnea and Denies dyspnea on exertion GI Denies hematochezia Musc Denies abnormal gait, Denies muscle weakness, Denies numbness, Denies radiating pain into limb and Denies tingling Neuro Denies abnormal gait, Denies dizziness, Denies frequent falls, Denies numbness, Denies tingling and Denies weakness Endo Denies fatigue and Denies palpitations Physical Exam Vital Signs: Last Vital Signs Pulse 83 12/09/24 13:51 BP 112/74 12/09/24 13:51 BMI result Body Mass Index 26.9 Const General: comfortable and no acute distress Orientation/consciousness: patient oriented x3 HEENT Other: Unremarkable Head: Yes normal to inspection Neck Neck: Yes normal visual inspection Chest Chest palpation & inspection: normal inspection of the chest Resp Auscultation: clear to auscultation bilaterally Cardio Palpation: normal PMI Heart sounds: S1 normal heart sound present, S2 normal heart sound present, no gallops, no murmurs and no rubs GI Palpation (GI): Soft to palpation Back/Spine/Pelvis Other: unremarkable Skin General skin exam: no rashes or lesions noted Neuro General: patient oriented x3 Extrem General: Yes normal to inspection Psych Mental Status: mental status grossly normal Assessment & Plan Assessment & Plan (1) Atherosclerotic cardiovascular disease: Code(s): I25.10 - Atherosclerotic heart disease of [place] coronary artery without angina pectoris Category: Medical (2) Status post aorto-coronary artery bypass graft: Code(s): Z95.1 - Presence of aortocoronary bypass graft Category: Surgical (3) Diabetes: Code(s): E11.9 - Type 2 diabetes mellitus without complications Category: Medical Qualifiers: Diabetes mellitus complication status: without complication Diabetes mellitus intermediate accountant insulin use: without intermediate accountant use Diabetes mellitus type: t ype 2 Qualified Code(s): E11.9 - Type 2 diabetes mellitus without complications Plan Status post CABG 2022. Post bypass surgery he again had chest pain with ST elevation in anteroseptal leads. This led to another cardiac catheterization, but grafts were patent. There was multivessel disease in his [place] coronaries. In the recent echocardiogram, LVEF 61%. Moderate concentric hypertrophy with some additional hypertrophy in the basal septum. basal inferior hypokinesis. Otherwise unremarkable. Myocardial perfusion imaging studies unremarkable. In the exercise portion, he was able to do 10.1 METS on Yunier protocol. No angina. Had shortness of breath. Hypertensive blood pressure response. No EKG evidence of ischemia. Overall, chest pains could be noncardiac and just from sternotomy. No clear explanation for the shortness of breath is the other studies are reassuring. With regard to medications, continue aspirin, beta-blockers, long-acting nitrates, statins, Zetia. With regard to diabetes, takes Jardiance, metformin, glimepiride. Last hemoglobin A1c is 6.3%. With regard to colonoscopy may proceed. Low to intermediate cardiac risk. Discussion Notes During the consultation, I explained the normal results of the ultrasound and stress test to the patient, which suggests no immediate cardiac issues. We dis cussed the possibility of allergies contributing to the symptoms and the importance of monitoring symptoms. The patient was informed to seek urgent care if chest pain persists or if shortness of breath worsens. A colonoscopy was addressed as part of routine screening. We plan to follow up in six months to reassess the patient's condition and symptoms. Patient was informed and verbally consented to the use of an ambient scribe for clinic note documentation during this visit. Patient Instructions: - Monitor your symptoms closely. - Seek urgent care if chest pain worsens or does not go away. - If you experience worsening shortness of breath, call for assistance. - Continue routine health screenings, including your planned colonoscopy. - Follow up in six months for reassessment. - Contact the office if you have any new or concerning symptoms. Coding Level of Care Code Est Pt Level 4 (34421) Complex EM visit Add On G2211 Diagnoses Atherosclerotic cardiovascular disease I25.10 Status post aorto-coronary artery bypass graft Z95.1 Type 2 diabetes mellitus without complication, without long-term current use of insulin E11.9 Diabetes mellitus complication status: without complication Diabetes mellitus intermediate accountant insulin use: without intermediate accountant use Diabetes mellitus type: type 2
--- OUTSIDE RECORDS SUMMARY | 2024-12-09 13:49 | XMS_ITS | Encounter Summary ---
Author Organization [employer] Address [address] [facility] [address] [place] [address] Care Team Providers Care Surveillance Director Name Role Phone Unavailable Primary Care Provider Unavailabl e Encounter Details Date Type Department Care Team (Latest Contact Info) Description 01/12/2019 Abstract [facility] CONVERSIONS Dental, Provider, DDS Social History [...]
[2024-12-09 13:51] VITALS: BP 112/74; PULSE 83; BMI 26.9
== END 2024-12-09 14:13 | disposition home or self-care (01) ==
LOC: HO.HCS 13:43
PROVIDERS: PCP Internal Medicine; Visit Provider Internal Medicine
DX: I25.10 Atherosclerotic heart disease of native coronary artery without angina pectoris (principal); Z95.1 Presence of aortocoronary bypass graft; E11.9 Type 2 diabetes mellitus without complications
CPT/HCPCS: 99214; G2211

== ENCOUNTER → 2024-12-09 13:42 | Outpatient (BNVA) | payer OTHER, SELFPAY | PROVIDERS: PCP Internal Medicine; Visit Provider Internal Medicine | DX: I25.10 Atherosclerotic heart disease of native coronary artery without angina pectoris (principal); E11.9 Type 2 diabetes mellitus without complications; Z95.1 Presence of aortocoronary bypass graft; Z87.891 Personal history of nicotine dependence | CPT/HCPCS: 99212 ==

== ENCOUNTER 2025-01-07 09:54 | Outpatient (AMB) | payer OTHER, SELFPAY ==
[2025-01-07 10:06] VITALS: BP 114/68; PULSE 80; O2SAT 96; BMI 26.9
--- NOTE | 2025-01-07 10:06 | HO.NEPHOV_ITS ---
Vital Signs 01/07/25 10:06 Height 5 ft 8 in Weight 177 lb BMI 26.9 BP 114/68 Blood Pressure Location Rt brachial Position Sitting Pulse 80 Pulse Source Pulse Oximeter Pulse Oximetry (%) 96 Oxygen Delivery Method Room Air Intake Visit Reasons: INP: Proteinuria-LVM Adult Care Provider Required: No Accompanied by: Self / Same As Patient Allergies nickel (NICKEL) Adverse Reaction (Intermediate, Verified 01/07/25 10:09) RASH Do you need a note to return to daycare/school/sports/work: No HPI Comments Details: I had the privilege of seeing Dawood in consultation for proteinuria. He has DM, questionable retinopathy with H/O CAD needing CABG in 2022. His last A1c was 6.3. He is tolerating Jardiance. He denies edema, microscopic hematuria, deafness, sore throat, sinusitis, photosensitivity or skin rashes. He has no H/O HIV or hepatitis. He does not take any excess NSAID's. He has no family H/O ESRD or renal transplantation. He had no new specific complaints at the time of this office visit. [facility] Medical History Ventricular tachyarrhythmia Atherosclerotic cardiovascular disease Mixed hyperlipidemia Minimal depression Screen for colon cancer Colon polyps Microalbuminuria Physical exam Hyperlipidemia HTN (hypertension) Diabetes Surgical History Varicose vein of leg Hx of CABG Hx of eye surgery H/O colonoscopy History of cataract surgery H/O shoulder surgery Family History Father Diabetes HTN (hypertension) Hyperlipidemia Mother Diabetes HTN (hypertension) Hyperlipidemia Social History Household Members: Spouse Housing: Apartment Alcohol intake: never Patient Tobacco Use Status: Former Tobacco user Tobacco use type: Cigarette e-Cigarette/Vaping Use: Never Used Second Hand Smoke Exposure: No service: No Current occupational status: employed Current occupational exposures/hazards: No Cognitive needs: No Hearing needs: No Vision needs: Yes Review of Systems Const All systems reviewed & are unremarkable except as noted in HPI and below Physical Exam Vital Signs: Last Vital Signs Pulse 80 01/07/25 10:06 BP 114/68 01/07/25 10:06 Pulse Ox 96 01/07/25 10:06 Oxygen Delivery Method Room Air 01/07/25 10:06 BMI result Body Mass Index 26.9 Const General: comfortable and no acute distress Orientation/consciousness: patient oriented x3 HEENT Head: Yes normocephalic Mouth: Normal oral and palatal mucosa present Eyes EOM: EOMs intact bilaterally Neck Neck: Yes supple Resp Auscultation: clear to auscultation bilaterally Cardio Jugular venous distension: no JVD Rate: regular rate GI Palpation (GI): Soft to palpation Auscultation: normal bowel sounds General: Yes no CVA tenderness Back/Spine/Pelvis Back: no CVA tenderness Skin General skin exam: no rashes or lesions noted Neuro General: patient oriented x3 and moves all extremities Extrem General: Yes no pedal edema Assessment & Plan Assessment & Plan (1) Proteinuria: Code(s): R80.9 - Proteinuria, unspecified Category: Medical Qualifiers: Proteinuria type: other Qualified Code(s): R80.8 - Other proteinuria Plan Dawood likely has diabetic nephropathy. His renal function is stable but has proteinuria.His A1c is good and he is on Jardiance. His BMI is acceptable. I have ordered further W/U and initiated him on low dose ACEI( side effects explained). He should minimize or avoid NSAID's regularly when he is on ACEI. He should maintain good hydration. No indication for renal biopsy now. F/U labs ordered, F/U given and answered all questions Orders: Orders Protein Creatinine Ratio, Ur 3 Months R80.9 - Proteinuria, unspecified Myeloperoxidase Antibody 3 Months R80.9 - Proteinuria, unspecified Phospholipase A2 Receptor Pnl 3 Months R80.9 - Proteinuria, unspecified Immunofixation Pnl, Serum 3 Months R80.9 - Proteinuria, unspecified Anti DNA DS Antibody 3 Months R80.9 - Proteinuria, unspecified Proteinase 3 PR3 Antibodies 3 Months R80.9 - Proteinuria, unspecified Medications: New lisinopril take it at night 2.5 mg PO DAILY 90 tabs 4RF 90 days Coding Level of Care Code New Pt Level 4 (55874) Diagnoses Other proteinuria R80.8 Proteinuria type: other
--- OUTSIDE RECORDS SUMMARY | 2025-01-07 10:27 | XMS_ITS | Encounter Summary ---
Author Organization [employer] Address [address] [facility] 7 [place] [address] Care Team Providers Care Drawer Upfitter Name Role Phone Unavailable Primary Care Provider Unavailabl e Encounter Details Date Type Department Care Team (Latest Contact Info) Description 01/12/2019 Abstract [facility] CONVERSIONS Dental, Provider, DDS [...]
== END 2025-01-07 10:37 | disposition home or self-care (01) ==
LOC: HO.HKA 09:56
PROVIDERS: PCP Internal Medicine; Referring Provider Internal Medicine; Visit Provider Internal Medicine Nephrology
DX: R80.8 Other proteinuria (principal)
CPT/HCPCS: 99204

== ENCOUNTER → 2025-01-07 09:54 | Outpatient (BNVA) | payer OTHER, SELFPAY | PROVIDERS: PCP Internal Medicine; Referring Provider Internal Medicine; Visit Provider Internal Medicine Nephrology | DX: E11.9 Type 2 diabetes mellitus without complications (principal); R80.8 Other proteinuria | CPT/HCPCS: 99202 ==

== ENCOUNTER 2025-02-16 11:00 | Outpatient (RCR) | payer OTHER, SELFPAY ==
--- NOTE | 2025-01-12 16:55 | MHC.PT.EP ---
[facility] [place] Office [place] Office [place] Office [address] Jose Luis Gillespie [address] [phone] F: [phone] F: [phone] F: [phone] F: [phone] Physical Therapy Plan of Care Date of Evaluation: 01/12/25 Date of Surgery: N/A Diagnosis: spinal stenosis, lumbar spine (RL) Assessment: pt is a 59 y/o male presenting to physical therapy w/ referring diagnosis of spinal stenosis, lumbar spine. Impairments include pain, decreased range of motion, decreased strength, impaired functional mobility, impaired postural awareness, and altered ambulation mechanics. pt is a good candidate for skilled PT due to age, potential remediation of impairments, typical disease/condition progression and prognosis, comorbidities, and motivation. pt would benefit from skilled PT intervention to provide a tailored strengthening and stretching exercise program, functional training, gait training, postural re-training, neuromuscular re-education, modalities as needed for pain, equipment safety demonstration. Frequency and Duration: The patient will be seen 2x/wk for 4 wks Short Term Goals: pt will be I w/ HEP to promote self-management of condition. pt will demo proper sitting posture w/ lumbar roll to promote neutral spine w/ seated ADLs. Manager Audio Goals: pt will report a statistically significant improvement in self-reported outcome measure, Christal, to promote return to PLOF. pt will improve lumbar flexion AROM to at least 75% to promote ease in picking up objects from the ground. Treatment Plan: Modalities to reduce pain, spasms and effusion. Manual therapy to restore motion and function. Therapeutic exercise to improve strength and flexibility. Neuromuscular re-education for posture and balance. Therapeutic activities to return to functional activities of daily living. Electronically signed by: Yanira Downey PT, DPT Please sign and return to therapist. Thank you for your referral.
--- NOTE | 2025-03-11 08:13 | MHC.PT.DC ---
[facility] [place] Office [place] Office [place] Office [address] Jose Luis Gillespie [address] [facility] [phone] F: [phone] F: [phone] F: [phone] F: [phone] Physical Therapy Discharge Report Diagnosis: spinal stenosis, lumbar spine (RL) Date of Surgery: N/A Date of Evaluation: 01/12/25 Date of Discharge: 03/11/25 Treatments to Date: 8 Cancellations to Date: 1 No Shows to Date: 0 Discharge Status: Recommend MD Follow-up Discharge Summary: The patient overall reported minimal improvement in his low back pain. He was advised to continue with his home exercise program to maintain his gains in range of motion and strength. I advised him to follow-up with his referring provider to determine the next steps in pain management strategies. He is discharged from this physical therapy plan of care. Electronically signed by: Yanira Downey PT, DPT Please sign and return to therapist. Thank you for your referral.
== END 2025-05-10 16:03 | disposition home or self-care (01) ==
LOC: HO.PT 11:00
PROVIDERS: PCP Internal Medicine; Visit Provider Physician Assistant
DX: M48.061 Spinal stenosis, lumbar region without neurogenic claudication (principal)
CPT/HCPCS: 97110; 97162; 97530

== ENCOUNTER 2025-03-23 10:09 | Outpatient (REF) | payer OTHER, SELFPAY ==
[2025-03-23 11:56] LABS: Alanine Aminotransferase 29 U/L (0-40); Albumin Level 4.5 g/dL (3.5-5.0); Alkaline Phosphatase 71 U/L (39-117); Anion Gap 14 (12-20); Aspartate Amino Transferase 27 U/L (5-37); Blood Urea Nitrogen 16 mg/dL (9-16); Calcium 9.3 mg/dL (8.4-10.2); Carbon Dioxide 26 mmol/L (22-29); Chloride 106 mmol/L (96-108); Cholesterol 113 mg/dL (<200); Estimated Glomerular Filt Rate > 60; HDL Cholesterol 41 mg/dL (>40); Potassium 4.5 mmol/L (3.3-5.1); Sodium 141 mmol/L (135-145); Total Protein 7.2 g/dL (6.5-8.0); Triglycerides 79 mg/dL (<150)
--- OUTSIDE RECORDS SUMMARY | 2025-03-23 12:22 | XMS_ITS | Clinical Summary ---
Author Organization [employer] Address [address] [facility] 7t [place] [address] Care Team Providers Care Guyline Operator Name Role Phone Unavailable Primary Care Provider [...] FOBT 1964 Lipid Panel 1964 Sigmoidoscopy 1964 Disability Screening 1964 Alcohol/Substance Use Screening 1976 Tobacco Screening 1976 DTaP/Tdap/Td Vaccines (1 - Tdap) 1983 Pneumococcal Vaccine: 50+ Ye ars (1 of 1 - PCV) 2014 Zoster Vaccines (1 of 2) 2014 COVID-19 Vaccine (1 - 2023-2 5 season) 2025 Influenza Vaccine (#1) 2025 RSV Patients and Pa tients Aged 60 [...] patient's age to complete this topic Meningococcal B Vaccine Aged Out No l onger eligible based on patient's age to complete [...]
--- OUTSIDE RECORDS SUMMARY | 2025-03-23 12:22 | XMS_ITS | Encounter Summary ---
Author Organization [employer] Address [address] [facility] 7 [place] [address] Care Team Providers Care Chief Of Surgery Name Role Phone Unavailable Primary Care Provider Unavailabl e Encounter Details Date Type Department Care Team (Latest Contact Info) Description 01/12/2019 Abstract [facility] CONVERSIONS Dental, Provider, DDS Social History [...]
--- OUTSIDE RECORDS SUMMARY | 2025-03-23 12:22 | XMS_ITS | Clinical Summary ---
Author Organization [facility] Address [address] [place] [address] Care Team Providers Care Skilled Nursing Case Manager Name Role Phone Gabriela Shelby MD [...] Health Maintenance Due Date Last Done Comments Colorectal Cancer Screening: Annual FOBT 2013 Colorectal Cancer Screening: Colonoscopy 2013 Colorectal Cancer Screening: Sigmoidoscopy 2013 Pneumococcal Vaccine: 50+ Ye ars (1 of 1 - PCV) 2014 Diabetes: Hemoglobin A1C 08/13/2020 Diabetes: Ophthalmology Exam 08/13/2020 Diabetes: Pedal Pulse Checked 08/13/2020 Diabetes: Sensory Foot Exam 08/13/2020 Diabetes: Visual Foot Exam 08/13/2020 Influenza Vaccine (#1) 2025 Hepatitis B Vaccine Aged Out No longe r eligible based on patient's age to complete this topic Insurance [facility] Care Teams Skilled Nursing Case Manager Relationship Specialty Start Date End Date Gabriela Shelby MD [address] [place], [place] PCP - General Internal Medicine 11/01/21
[2025-03-23 13:06] LABS: Microalbum/Creatinine Ratio Ur 112.0 ug/mg cr (<30)
[2025-03-23 13:07] LABS: Protein/Creatinine Ratio, Ur 0.22 (<0.2); Total Protein Urine Random 18 mg/dL (<12)
[2025-03-24 22:39] LABS: Proteinase 3 PR3 Antibodies <1.0 AI
[2025-03-30 00:08] LABS: Phospholipase A2 IgG ELISA <4 RU/mL; Phospholipase A2 IgG IFA NEGATIVE (NEGATIVE)
== END 2025-03-23 10:10 | disposition home or self-care (01) ==
LOC: HO.LAB 10:09
PROVIDERS: Internal Medicine Nephrology; PCP Internal Medicine; Visit Provider Internal Medicine
DX: E11.9 Type 2 diabetes mellitus without complications (principal); R80.9 Proteinuria, unspecified; E78.5 Hyperlipidemia, unspecified; E55.9 Vitamin D deficiency, unspecified
CPT/HCPCS: 36415; 80053; 80061; 82043; 82306; 82570; 82784; 83520; 84156; 86021; 86225; 86255; 86334

== ENCOUNTER 2025-03-28 10:25 | Outpatient (AMB) | payer OTHER, SELFPAY ==
--- NOTE | 2025-03-28 10:35 | HO.NEPHOV_ITS ---
Vital Signs 03/28/25 10:38 Height 5 ft 8 in Weight 181 lb 8 oz BMI 27.6 BP 102/60 Blood Pressure Location Rt brachial Position Sitting Pulse 86 Pulse Source Pulse Oximeter Pulse Oximetry (%) 96 Oxygen Delivery Method Room Air Intake Visit Reasons: 3 month-Conf Speech Language Pathology Assistant Required: Yes Speech Language Pathology Assistant Language: Web Content Specialist Services: Speech Language Pathology Assistant Offered & Declined ([facility] Speech Language Pathology Assistant services refused ) Accompanied by: Self / Same As Patient Allergies nickel (NICKEL) Adverse Reaction (Intermediate, Verified 03/28/25 10:36) RASH HPI Comments Details: I had the privilege of seeing Dawood in follow up for proteinuria. He has DM, questionable retinopathy with H/O CAD needing CABG in 2022. His last A1c was 6.3. He is tolerating Jardiance. He denies edema, microscopic hematuria, deafness, sore throat, sinusitis, photosensitivity or skin rashes. He has no H/O HIV or hepatitis. He does not take any excess NSAID's. He has no family H/O ESRD or renal transplantation. He had no new specific complaints at the time of this office visit. [facility] Medical History Ventricular tachyarrhythmia Atherosclerotic cardiovascular disease Mixed hyperlipidemia Minimal depression Screen for colon cancer Colon polyps Microalbuminuria Physical exam Hyperlipidemia HTN (hypertension) Diabetes Surgical History Varicose vein of leg Hx of CABG Hx of eye surgery H/O colonoscopy History of cataract surgery H/O shoulder surgery Family History Father Diabetes HTN (hypertension) Hyperlipidemia Mother Diabetes HTN (hypertension) Hyperlipidemia Social History Household Members: Spouse Housing: Apartment Alcohol intake: never Patient Tobacco Use Status: Former Tobacco user Tobacco use type: Cigarette e-Cigarette/Vaping Use: Never Used Second Hand Smoke Exposure: No service: No Current occupational status: employed Current occupational exposures/hazards: No Cognitive needs: No Hearing needs: No Vision needs: Yes Review of Systems Const All systems reviewed & are unremarkable except as noted in HPI and below Physical Exam Vital Signs: Last Vital Signs Pulse 86 03/28/25 10:38 BP 102/60 03/28/25 10:38 Pulse Ox 96 03/28/25 10:38 Oxygen Delivery Method Room Air 03/28/25 10:38 BMI result Body Mass Index 27.6 Const General: comfortable and no acute distress Orientation/consciousness: patient oriented x3 HEENT Head: Yes normocephalic Mouth: Normal oral and palatal mucosa present Eyes EOM: EOMs intact bilaterally Neck Neck: Yes supple Resp Auscultation: clear to auscultation bilaterally Cardio Jugular venous distension: no JVD Rate: regular rate GI Palpation (GI): Soft to palpation Auscultation: normal bowel sounds General: Yes no CVA tenderness Back/Spine/Pelvis Back: no CVA tenderness Skin General skin exam: no rashes or lesions noted Neuro General: patient oriented x3 and moves all extremities Extrem General: Yes no pedal edema Results Reviewed Nephrology Results: Sodium, (135-145) 141 mmol/L 03/23/25 Potassium, (3.3-5.1) 4.5 mmol/L 03/23/25 Chloride, (96-108) 106 mmol/L 03/23/25 Carbon Dioxide, (22-29) 26 mmol/L 03/23/25 BUN, (9-16) 16 mg/dL 03/23/25 Creatinine, (0.5-1.4) 1.03 mg/dL 03/23/25 Calcium, (8.4-10.2) 9.3 mg/dL 03/23/25 Urine Creatinine 81.86 mg/dL 03/23/25 Protein/Creatinin Ratio, (<0.2) 0.22 H 03/23/25 Assessment & Plan Assessment & Plan (1) HTN (hypertension): Code(s): I10 - Essential (primary) hypertension Category: Medical Qualifiers: Hypertension type: primary hypertension Qualified Code(s): I10 - Essential (primary) hypertension (2) Proteinuria: Code(s): R80.9 - Proteinuria, unspecified Category: Medical Qualifiers: Proteinuria type: other Qualified Code(s): R80.8 - Other proteinuria Plan Dawood likely has diabetic nephropathy. His renal function is stable but has proteinuria.His A1c is good and he is on Jardiance. His BMI is acceptable. I reviewed his W/U and increased his lisinopril to 5 mg daily( side effects explained). He should minimize or avoid NSAID's regularly when he is on ACEI. He should maintain good hydration. No indication for renal biopsy now. F/U labs ordered, F/U given and answered all questions Orders: Orders Protein Creatinine Ratio, Ur 6 Months I10 - Essential (primary) hypertension, R80.8 - Other proteinuria Creatinine 6 Months I10 - Essential (primary) hypertension, R80.8 - Other proteinuria Blood Urea Nitrogen 6 Months I10 - Essential (primary) hypertension, R80.8 - Other proteinuria Electrolytes 6 Months I10 - Essential (primary) hypertension, R80.8 - Other proteinuria Medications: Changed From lisinopril take it at night 2.5 mg PO DAILY 90 days 90 tabs 4RF To lisinopril take it at night 5 mg PO DAILY 90 tabs 4RF 90 days Coding Level of Care Code Est Pt Level 4 (85679) Diagnoses Primary hypertension I10 Hypertension type: primary hypertension Other proteinuria R80.8 Proteinuria type: other
[2025-03-28 10:38] VITALS: BP 102/60; PULSE 86; O2SAT 96; BMI 27.6
--- OUTSIDE RECORDS SUMMARY | 2025-03-28 13:18 | XMS_ITS | Clinical Summary ---
Author Organization [employer] Address [address] [place] [address] Care Team Providers Care Insurance Verification Rep Name Role Phone Unavailable Primary Care Provider [...]
--- OUTSIDE RECORDS SUMMARY | 2025-03-28 13:18 | XMS_ITS | Clinical Summary ---
Author Organization [facility] Facility Address [address] [place] [id number] Care Team Providers Care Flamer Sealer Name Role Phone Gabriela Shelby MD Primary Care Provider [phone] Allergies No known active allergies Medications sildenafil [...] patient's age to complete this topic Insurance [facility] Care Teams Flamer Sealer Relationship Specialty Start Date End Date Gabriela Shelby MD [address] [place], [place] PCP - General Internal Medicine 11/01/21
--- OUTSIDE RECORDS SUMMARY | 2025-03-28 13:18 | XMS_ITS | Encounter Summary ---
Author Organization [employer] Address [address] [facility] [address] [place] [address] Care Team Providers Care Baker Doughnut Name Role Phone Unavailable Primary Care Provider Unavailabl e Encounter Details Date Type Department Care Team (Latest Contact Info) Description 01/12/2019 Abstract [facility] CONVERSIONS Dental, Provider, DDS Social History [...]
== END 2025-03-28 11:02 | disposition home or self-care (01) ==
LOC: HO.HKA 10:26
PROVIDERS: PCP Internal Medicine; Visit Provider Internal Medicine Nephrology
DX: I10 Essential (primary) hypertension (principal); R80.8 Other proteinuria
CPT/HCPCS: 99214

== ENCOUNTER → 2025-03-28 10:25 | Outpatient (BNVA) | payer OTHER, SELFPAY | PROVIDERS: PCP Internal Medicine; Visit Provider Internal Medicine Nephrology | DX: I10 Essential (primary) hypertension (principal); R80.8 Other proteinuria | CPT/HCPCS: 99212 ==

== ENCOUNTER 2025-04-05 13:58 | Outpatient (AMB) | payer OTHER, SELFPAY ==
[2025-04-05 14:05] VITALS: BP 110/64; PULSE 76; TEMP 36.6; O2SAT 96; BMI 27.4
--- NOTE | 2025-04-05 14:05 | MHC.PC.OV ---
Vital Signs 04/05/25 14:05 Height 5 ft 8 in Weight 180 lb 6 oz BMI 27.4 BP 110/64 Blood Pressure Location Rt brachial Position Sitting Pulse 76 Pulse Source Pulse Oximeter Temp 97.8 F Temp Source Temporal Artery Scan Pulse Oximetry (%) 96 Oxygen Delivery Method Room Air Intake Visit Reasons: dm Pouncing Lathe Operator Required: No Accompanied by: Spouse Allergies nickel (NICKEL) Adverse Reaction (Intermediate, Verified 04/05/25 14:20) RASH Medication List - Last Reconciled 04/05/25 by Gabriela Ball MD aspirin 81 mg PO DAILY atorvastatin 80 mg PO BEDTIME bisacodyl (Dulcolax (bisacodyl)) 20 mg (4 x 5 mg) PO ONCE 1 day blood sugar diagnostic (FreeStyle Lite Strips) Use 1 test strip twice a day blood-glucose meter (FreeStyle Lite Meter kit) As directed blood-glucose sensor (FreeStyle Alvino 3 Sensor device) As directed bupropion HCl XL 300 mg PO QAM carvedilol 3.125 mg PO BID cholecalciferol (vitamin D3) 25 mcg PO DAILY 90 days empagliflozin (Jardiance) 25 mg PO DAILY 90 days glimepiride 2 mg PO DAILY 90 days isosorbide mononitrate ER 30 mg PO DAILY lancets (FreeStyle Lancets) Use 1 lancet twice a day lisinopril 5 mg PO DAILY 90 days metformin 1,000 mg (2 x 500 mg) PO BID 90 days nitroglycerin 0.4 mg sublingual Q5M PRN pantoprazole 40 mg PO DAILY 90 days polyethylene glycol 3350 (Miralax) 238 grams PO ONCE sertraline 50 mg PO DAILY tramadol 50 mg PO Q8H PRN 7 days Tobacco use date assessed: 04/05/25 Dental Screening Dental Screen Date: 04/05/25 Did you have a dental visit in the last 12 months?: Yes Did you have a dental problem in the last 6 months where you did not have access to dental care?: No HPI HPI Comments History of Present Illness Details The patient is a 59-year-old male presenting with the management of chronic conditions including diabetes mellitus, and depression with anxiety. The patient has a history of dm, for which he is currently taking carvedilol and Jardiance, which also aids in managing his diabetes. He reports occasional chest pain, for which nitroglycerin is prescribed as a sublingual medication. His diabetes is managed with a combination of medications including metformin and glimepiride, with recent glycemic control showing an HbA1c of 7.1%. The patient adheres to his medication regimen, although he experiences occasional side effects such as coughing, which may be related to his medication. The patient also suffers from depression with anxiety, for which he is prescribed sertraline. He recently underwent laboratory tests, which showed normal renal function, liver function, and calcium levels, but a slightly elevated microalbuminuria. His lipid profile is well-controlled with an LDL cholesterol level of 57 mg/dL, indicating effective management of hyperlipidemia. REPLACED BY [facility] Medical History Ventricular tachyarrhythmia Atherosclerotic cardiovascular disease Mixed hyperlipidemia Minimal depression Screen for colon cancer Colon polyps Microalbuminuria Physical exam Hyperlipidemia HTN (hypertension) Diabetes Surgical History Varicose vein of leg Hx of CABG Hx of eye surgery H/O colonoscopy History of cataract surgery H/O shoulder surgery Family History Father Diabetes HTN (hypertension) Hyperlipidemia Mother Diabetes HTN (hypertension) Hyperlipidemia Social History Household Members: Spouse Housing: Apartment Alcohol intake: never Patient Tobacco Use Status: Former Tobacco user Tobacco use type: Cigarette e-Cigarette/Vaping Use: Never Used Second Hand Smoke Exposure: No service: No Current occupational status: employed Current occupational exposures/hazards: No Cognitive needs: No Hearing needs: No Vision needs: Yes Questionnaire PHQ-9 Over the last 2 weeks, how often have you been bothered by any of the following problems? 1. Little interest or pleasure in doing things: not at all 2. Feeling down, depressed, or hopeless: several days 3. Trouble falling or staying asleep, or sleeping too much: nearly every day 4. Feeling tired or having little energy: not at all 5. Poor appetite or overeating: several days 6. Feeling bad about yourself - or that you are a failure or have let yourself or your family down: not at all 7. Trouble concentrating on things, such as reading the newspaper or watching television: not at all 8. Moving or speaking so slowly that other people could have noticed. Or the opposite - being so fidgety or restless that you have been moving around a lot more than usual: not at all 9. Thoughts that you would be better off or of hurting yourself in some way: not at all Total score: 5 Depression Screening Interpretation: Positive Depression Screening Follow-up: Existing condition and Follow-up Visit Requested Depression Screening Done: Yes 35352 - PHQ-9 Billing: Yes Source: Developed by Drs. Julio Fernández, Katherine Celis, Adrian Mcneill and colleagues, with an educational augustine from [employer]. Thrive Questionnaire Date Thrive assessed: 04/05/25 I am a: Patient What is your living situation today?: I have a steady place to live Within the past 12 months, did the food you bought not last and you didn't have the money to get more?: Sometimes True Within the past 12 months, did you worry whether your food would run out before you got money to buy more?: I choose not to answer this question Do you have trouble paying for medicines?: I choose not to answer this question Do you have trouble getting transportation to medical appointments?: No Do you have trouble paying your heating and electricity bill?: No Do you have trouble taking care of your child, family member or friend?: No Do you have trouble with day-to-day activities such as bathing, preparing meals, shopping, managing finances, etc.?: I choose not to answer this question Are you currently unemployed and looking for a job?: No Are you interested in more education?: I choose not to answer this question Please select the resources that you would like help with: Utilities Currently or been in a relationship where the following occur: I choose not to answer THRIVE Score: 1 AUDIT C Alcohol Use Questionnaire (AUDIT-C) 1. How often do you have a drink containing alcohol?: Never 3. How often do you have six or more drinks on one occasion?: Never Total Score: 0 Score Reviewed/Action Taken: No INESSA-7 AMB Questionnaire INESSA-7 Date INESSA - 7 assessed: 04/05/25 Feeling nervous, anxious, or on edge: 1 = Several days Not being able to stop or control worryin = Not at all Worrying too much about different things: 0 = Not at all Trouble relaxin = Not at all Being so restless that it is hard to sit still: 0 = Not at all Becoming easily annoyed or irritable: 0 = Not at all Feeling afraid as if something awful might happen: 0 = Not at all Total INESSA-7 score (0-4 normal; 5-9 mild; 10-14 moderate; 15-21 severe): 1 Source: Developed by Drs. Julio Fernández, Katherine Celis, Adrian Mcneill and colleagues, with an educational augustine from [employer]. INESSA-7 Assessment Billing INESSA-7 Assessment Tool: INESSA-7 Assessment 29772 Review of Systems Const All systems reviewed & are unremarkable except as noted in HPI and below Card Denies chest pain at rest, Denies chest pain with activity, Denies edema, Denies irregular heart rhythm, Denies claudication, Denies dyspnea, Denies dyspnea on exertion, Denies orthopnea, Denies paroxysmal nocturnal dyspnea and Denies slow heart rate Resp Denies cough, Denies dyspnea and Denies dyspnea on exertion GI Denies abdominal pain, Denies change in bowel habits, Denies excessive flatus, Denies nausea and Denies vomiting Denies urinary hesitancy, Denies urinary incontinence and Denies urinary urgency Musc Denies atrophy, Denies deformity and Denies limited range of motion Physical exam (Primary Care) Vital Signs: Last Vital Signs Temp 97.8 F 04/05/25 14:05 Pulse 76 04/05/25 14:05 BP 110/64 04/05/25 14:05 Pulse Ox 96 04/05/25 14:05 Oxygen Delivery Method Room Air 04/05/25 14:05 BMI result Body Mass Index 27.4 Tobacco/Smoking Status: Tobacco use Status Tobacco use date assessed 04/05/25 04/05/25 14:06 Patient Tobacco Use Status Former Tobacco user 04/05/25 14:06 Tobacco use type Cigarette 04/05/25 14:06 e-Cigarette/Vaping Use Never Used 04/05/25 14:06 PHQ-9: PHQ-9 Score PHQ-9: Total score 5 04/05/25 14:26 Depression Screening Interpretation: Positive Depression Screening Follow-up: Existing condition and Follow-up Visit Requested Thrive Assessment: Date of Thrive Assessment Date Thrive assessed 04/05/25 04/05/25 14:06 Currently or been in a relationship where the following occur: I choose not to answer Resp Effort & Inspection: normal respiratory effort Auscultation: clear to auscultation bilaterally Cardio Jugular venous distension: no JVD Rate: regular rate Rhythm: regular rhythm Heart sounds: S1 normal heart sound present and S2 normal heart sound present Extrem General: Yes full ROM Results AMB Hemoglobin A1c AMB Hemoglobin A1c 7.1 % Last Edit by RUBY Gomez on 04/05/25 14:31 Coding Level of Care Code Est Pt Level 4 (20866) Complex EM visit Add On G2211 Diagnoses Primary hypertension I10 Hypertension type: primary hypertension Mixed hyperlipidemia E78.2 Type 2 diabetes mellitus without complication, without long-term current use of insulin E11.9 Diabetes mellitus type: type 2 Diabetes mellitus mcc insulin use: without remote computer terminal operator use Diabetes mellitus complication status: without complication Microalbuminuria R80.9 Minimal depression F32.A Additional Codes PHQ-9 - 23471 - PHQ-9 Billing: Yes ([id number]) INESSA-7 Assessment Billing - INESSA-7 Assessment Tool: INESSA-7 Assessment 82275 ([id number]) Time Spent (min) 24 Assessment & Plan Assessment & Plan (1) HTN (hypertension): Code(s): I10 - Essential (primary) hypertension Category: Medical Qualifiers: Hypertension type: primary hypertension Qualified Code(s): I10 - Essential (primary) hypertension (2) Mixed hyperlipidemia: Code(s): E78.2 - Mixed hyperlipidemia Category: Medical (3) Diabetes: Code(s): E11.9 - Type 2 diabetes mellitus without complications Category: Medical Qualifiers: Diabetes mellitus type: type 2 Diabetes mellitus mcc insulin use: without remote computer terminal operator use Diabetes mellitus complication status: without complication Qualified Code(s): E11.9 - Type 2 diabetes mellitus without complications (4) Microalbuminuria: Code(s): R80.9 - Proteinuria, unspecified Category: Medical (5) Minimal depression: Code(s): F32.A - Depression, unspecified Category: Medical Plan Plan Patient was informed and verbally consented to the use of an ambient scribe for clinic note documentation during this visit. 1. Hypertension The patient is currently managed with carvedilol and Jardiance, which also assists in diabetes management. He is advised to continue his current medication regimen and monitor for any worsening symptoms such as increased chest pain or dyspnea. 2. Diabetes Mellitus The patient's diabetes is managed with metformin and glimepiride, with an HbA1c of 7.1% indicating adequate control. He is advised to maintain his current medication regimen and monitor blood glucose levels regularly. 3. Depression With Anxiety The patient is prescribed sertraline for depression with anxiety. He is encouraged to continue his medication and report any changes in mood or anxiety levels. 4. Hyperlipidemia The patient's hyperlipidemia is well-controlled with an LDL cholesterol level of 57 mg/dL. He is advised to continue his current lipid-lowering therapy and maintain a heart-healthy diet. 5. Microalbuminuria The patient has slightly elevated microalbuminuria, which requires monitoring. He is advised to follow up with repeat laboratory tests in 5 months to assess kidney function. Orders: Orders AMB Hemoglobin A1c Today Z13.9 - Encounter for screening, unspecified Microalbumin, Random (w Creat) 5 Months R80.9 - Proteinuria, unspecified Lipid Panel 5 Months E78.5 - Hyperlipidemia, unspecified Comprehensive [place]. Panel Fast 5 Months I10 - Essential (primary) hypertension
--- OUTSIDE RECORDS SUMMARY | 2025-04-05 17:12 | XMS_ITS | Encounter Summary ---
Author Organization [employer] Address [address] [facility] [address] [place] [address] Care Team Providers Care Field Research Associate Name Role Phone Unavailable Primary Care Provider Unavailabl e Encounter Details Date Type Department Care Team (Latest Contact Info) Description 01/12/2019 Abstract [facility] CONVERSIONS Dental, Provider, DDS Social History [...]
--- OUTSIDE RECORDS SUMMARY | 2025-04-05 17:12 | XMS_ITS | Clinical Summary ---
Author Organization [employer] Address [address] [facility] [address] [place] [address] Care Team Providers Care Bar Finish Operator Name Role Phone Unavailable Primary Care [...] this topic Meningococcal Vaccine Aged Out No vriginia abdulaziz eligible based on patient's age to complete this topic RSV under 20 months Aged Out No longe r eligible based on patient's age to complete this topic Rotavirus Vaccines Aged Out No longer eligible based on patient's age to complete this topic
--- OUTSIDE RECORDS SUMMARY | 2025-04-05 17:12 | XMS_ITS | Clinical Summary ---
Author Organization [facility] Facility Address [address] [place] [address] Care Team Providers Care Supervisor Area Name Role Phone Gabriela Shelby MD Primary Care Provider [phone] Allergies No known active allergies Medications sildenafil [...] patient's age to complete this topic Insurance [facility] Care Teams Supervisor Area Relationship Specialty Start Date End Date Gabriela Shelby MD [address] [place], [place] PCP - General Internal Medicine 11/01/21
== END 2025-04-05 14:38 | disposition home or self-care (01) ==
LOC: HO.HMCH 13:59
PROVIDERS: PCP Internal Medicine; Visit Provider Internal Medicine
DX: I10 Essential (primary) hypertension (principal); E78.2 Mixed hyperlipidemia; E11.9 Type 2 diabetes mellitus without complications; R80.9 Proteinuria, unspecified; F32.A Depression, unspecified; Z13.9 Encounter for screening, unspecified

== ENCOUNTER → 2025-04-05 13:58 | Outpatient (BNVA) | payer OTHER, SELFPAY | PROVIDERS: PCP Internal Medicine; Visit Provider Internal Medicine | DX: I10 Essential (primary) hypertension (principal); E11.9 Type 2 diabetes mellitus without complications; F41.8 Other specified anxiety disorders; R07.9 Chest pain, unspecified; E78.2 Mixed hyperlipidemia; R80.9 Proteinuria, unspecified; E78.5 Hyperlipidemia, unspecified | CPT/HCPCS: 83036; 96127; 99212 ==

== ENCOUNTER 2025-06-06 13:51 | Outpatient (AMB) | payer MEDICARE, MEDICAID, SELFPAY ==
--- NOTE | 2025-06-06 13:57 | MHC.OFFVIS ---
Vital Signs 06/06/25 13:58 Height 5 ft 8 in Weight 178 lb BMI 27.1 BP 130/68 Blood Pressure Location Lt brachial Position Sitting Pulse 88 Pulse Source Pulse Oximeter Intake Visit Reasons: 6m follow up Community Development Planner Required: Yes Community Development Planner Services: Community Development Planner Offered & Declined Allergies nickel (NICKEL) Adverse Reaction (Intermediate, Verified 04/05/25 14:20) RASH Medication List - Last Reconciled 06/06/25 by Arden Smith MD aspirin 81 mg PO DAILY atorvastatin 80 mg PO BEDTIME bisacodyl (Dulcolax (bisacodyl)) 20 mg (4 x 5 mg) PO ONCE 1 day blood sugar diagnostic (FreeStyle Lite Strips) Use 1 test strip twice a day blood-glucose meter (FreeStyle Lite Meter kit) As directed blood-glucose sensor (FreeStyle Alvino 3 Sensor device) As directed bupropion HCl XL 300 mg PO QAM carvedilol 3.125 mg PO BID cholecalciferol (vitamin D3) 25 mcg PO DAILY 90 days empagliflozin (Jardiance) 25 mg PO DAILY 90 days ezetimibe (Zetia) 10 mg PO DAILY glimepiride 2 mg PO DAILY 90 days isosorbide mononitrate ER 30 mg PO DAILY lancets (FreeStyle Lancets) Use 1 lancet twice a day lisinopril 5 mg PO DAILY 90 days metformin 1,000 mg (2 x 500 mg) PO BID 90 days nitroglycerin 0.4 mg sublingual Q5M PRN pantoprazole 40 mg PO DAILY 90 days polyethylene glycol 3350 (Miralax) 238 grams PO ONCE sertraline 50 mg PO DAILY tramadol 50 mg PO Q8H PRN 7 days HPI Comments Details: Dawood returns for follow-up regarding coronary disease. In 2022, he underwent coronary artery bypass surgery. Since then, he has had sternotomy pains but otherwise doing fine. No new concerns since last seen. He seems to be getting along okay. PFSH Medical History Ventricular tachyarrhythmia Atherosclerotic cardiovascular disease Mixed hyperlipidemia Minimal depression Screen for colon cancer Colon polyps Microalbuminuria Physical exam Hyperlipidemia HTN (hypertension) Diabetes Surgical History Varicose vein of leg Hx of CABG Hx of eye surgery H/O colonoscopy History of cataract surgery H/O shoulder surgery Family History Father Diabetes HTN (hypertension) Hyperlipidemia Mother Diabetes HTN (hypertension) Hyperlipidemia Social History Household Members: Spouse Housing: Apartment Alcohol intake: never Patient Tobacco Use Status: Former Tobacco user Tobacco use type: Cigarette e-Cigarette/Vaping Use: Never Used Second Hand Smoke Exposure: No service: No Current occupational status: employed Current occupational exposures/hazards: No Cognitive needs: No Hearing needs: No Vision needs: Yes Review of Systems Const Denies weakness ENT Denies dizziness Card Denies chest pain, Denies chest pain with activity, Denies syncope, Denies rapid heart rate, Denies pedal edema, Denies edema, Denies leg edema, Denies lightheadedness, Denies palpitations, Denies dyspnea, Denies dyspnea on exertion and Denies orthopnea Resp Denies cough, Denies dyspnea and Denies dyspnea on exertion GI Denies hematochezia and Denies change in stool character Musc Denies abnormal gait, Reports joint swelling, Denies muscle cramps, Denies muscle weakness, Denies numbness, Denies radiating pain into limb and Denies tingling Neuro Denies abnormal gait, Denies dizziness, Denies syncope, Denies numbness, Denies tingling and Denies weakness Endo Denies palpitations Physical Exam Vital Signs: Last Vital Signs Pulse 88 06/06/25 13:58 BP 130/68 06/06/25 13:58 BMI result Body Mass Index 27.1 Const General: comfortable and no acute distress Orientation/consciousness: patient oriented x3 HEENT Other: Unremarkable Head: Yes normal to inspection Neck Neck: Yes normal visual inspection Chest Chest palpation & inspection: normal inspection of the chest Resp Auscultation: clear to auscultation bilaterally Cardio Palpation: normal PMI Heart sounds: S1 normal heart sound present, S2 normal heart sound present, no gallops, no murmurs and no rubs GI Palpation (GI): Soft to palpation Back/Spine/Pelvis Other: unremarkable Skin General skin exam: no rashes or lesions noted Neuro General: patient oriented x3 Extrem General: Yes normal to inspection Psych Mental Status: mental status grossly normal Assessment & Plan Assessment & Plan (1) Atherosclerotic cardiovascular disease: Code(s): I25.10 - Atherosclerotic heart disease of [place] coronary artery without angina pectoris Category: Medical (2) Status post aorto-coronary artery bypass graft: Code(s): Z95.1 - Presence of aortocoronary bypass graft Category: Surgical (3) Diabetes: Code(s): E11.9 - Type 2 diabetes mellitus without complications Category: Medical Qualifiers: Diabetes mellitus complication status: without complication 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 Post bypass surgery he again had chest pain with ST elevation in anteroseptal leads. This led to another cardiac catheterization, but grafts were patent. There was multivessel disease in his [place] coronaries. In the last echocardiogram, LVEF 61%. Moderate concentric hypertrophy with some additional hypertrophy in the basal septum. Basal inferior hypokinesis. Otherwise unremarkable. Myocardial perfusion imaging studies unremarkable. In the exercise portion, he was able to do 10.1 METS on Yunier protocol. No angina. Had shortness of breath. Hypertensive blood pressure response. No EKG evidence of ischemia. Overall, continue management of stable coronary disease. With regard to medications, continue aspirin, beta-blockers, long-acting nitrates, statins, Zetia. With regard to diabetes, takes Jardiance, metformin, glimepiride. Last hemoglobin A1c is 7.1 %. With regard to colonoscopy may proceed. Low to intermediate cardiac risk. Discussion Notes I discussed with the patient that the persistent pain the patient has experienced since surgery is likely related to the way the bone healed. We confirmed that the patient is stable on the current medication regimen. We agreed to a follow-up visit in one year, and I advised the patient to call if any issues arise before then. I explained that medication refills will be managed automatically when the pharmacy contacts our office. Patient was informed and verbally consented to the use of an ambient scribe for clinic note documentation during this visit. Patient Instructions: - Your condition is stable, so continue taking your medications as prescribed. - We will schedule your next follow-up appointment in one year. - Please call our office if any new problems come up. 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
[2025-06-06 13:58] VITALS: BP 130/68; PULSE 88; BMI 27.1
--- OUTSIDE RECORDS SUMMARY | 2025-06-06 18:47 | XMS_ITS | Clinical Summary ---
Author Organization [employer] Address [address] [place] [address] Care Team Providers Care Cognos Tm1 Developer Name Role Phone Unavailable Primary Care Provider [...] of 2) 2014 COVID-19 Vaccine (1 - 2024-2 6 season) 2025 Influenza Vaccine (#1) 2025 RSV [...]
--- OUTSIDE RECORDS SUMMARY | 2025-06-06 18:47 | XMS_ITS | Encounter Summary ---
Author Organization [employer] Address [address] [place] [address] Care Team Providers Care Knuckler Name Role Phone Unavailable Primary Care Provider Unavailabl e Encounter Details Date Type Department Care Team (Latest Contact Info) Description 01/12/2019 Abstract [facility] CONVERSIONS Dental, Provider, DDS Social [...]
== END 2025-06-06 14:15 | disposition home or self-care (01) ==
LOC: HO.HCS 13:52
PROVIDERS: PCP Internal Medicine; Visit Provider Internal Medicine
DX: I25.10 Atherosclerotic heart disease of native coronary artery without angina pectoris (principal); Z95.1 Presence of aortocoronary bypass graft; E11.9 Type 2 diabetes mellitus without complications
CPT/HCPCS: 99214; G2211

== ENCOUNTER → 2025-06-06 13:51 | Outpatient (BNVA) | payer MEDICARE, MEDICAID, SELFPAY | PROVIDERS: PCP Internal Medicine; Visit Provider Internal Medicine | DX: E11.9 Type 2 diabetes mellitus without complications (principal); Z79.84 Long term (current) use of oral hypoglycemic drugs; I25.10 Atherosclerotic heart disease of native coronary artery without angina pectoris; Z95.1 Presence of aortocoronary bypass graft; I10 Essential (primary) hypertension; Z87.891 Personal history of nicotine dependence; Z79.82 Long term (current) use of aspirin; I25.84 Coronary atherosclerosis due to calcified coronary lesion | CPT/HCPCS: 99212 ==